=== PATIENT | male | born 1940 | race Caucasian/White ===

== ENCOUNTER 2017-06-22 15:42 | Inpatient (IN) | payer OTHER ==
[~2017-06-22] VITALS: Ht 170.2 cm; Wt 77.2 kg
[2017-06-22 15:43] VITALS: BP 194/113; PULSE 143; RESP 20; TEMP 98.6; O2SAT 95
[2017-06-22] MEDS ORDERED: DILTIAZEM HCL 25 MG/5 ML VIAL ONE (15:48)
[2017-06-22] MEDS ORDERED: SODIUM CHLOR 0.9% 1000 ML INJ 1,000 ML IV ONE (15:54)
[2017-06-22 16:04] VITALS: O2SAT 99
[2017-06-22] MEDS ORDERED: DILTIAZEM HCL 25 MG/5 ML VIAL IV ONE (16:15)
[2017-06-22] MEDS ORDERED: SODIUM CHLOR 0.9% 1000 ML INJ 1,000 ML IV SCH (16:19)
--- NOTE | 2017-06-22 16:27 | RADRPT ---
EXAM DATE/TIME: 06/22/2017 15:56 [facility] COMPARISON: No previous studies available for comparison. INDICATIONS : Stroke Alert- Altered mental status and poor verbal. RADIATION DOSE: 32.30 CTDIvol (mGy) This report was called by Dr. Latham to Dr. Madsen at 4: 21 PM. MEDICAL HISTORY : Non-responsive. SURGICAL HISTORY : Non-responsive. ENCOUNTER: Initial ACUITY: 1 day PAIN SCALE: Non-responsive LOCATION: Bilateral cranial TECHNIQUE: Multiple contiguous axial images were obtained of the head. Using automated exposure control and adj ustment of the mA and/or kV according to patient size, radiation dose was kept as low as reasonably a chievable to obtain optimal diagnostic quality images. DICOM format image data is available electro nically for review and comparison. FINDINGS: CEREBRUM: There is mild cerebral atrophy. Ventricles are normal in size. There is moderate to severe periventri cular white matter low-attenuation. No evidence of midline shift, mass lesion, hemorrhage or acute i nfarction. No extra-axial fluid collections are seen. Small amount of air is present within the cave rnous sinus. POSTERIOR FOSSA: The cerebellum and brainstem demonstrate no acute finding. There is mildly enlarged an ectatic basila r artery. The 4th ventricle is midline. The cerebellopontine angle is unremarkable. EXTRACRANIAL: Visualized sinuses are clear. Prior left scleral banding. SKULL: The calvaria is intact. No evidence of skull fracture. CONCLUSION: 1. No acute intracranial abnormality is identified. There is a small amount of air in the cavernous s inus, presumably from recent IV access. 2. There is generalized cerebral atrophy with [id number] periventricular white matter low att enuation characteristic of chronic microvascular ischemia. 3. Mild enlarged and tortuous basilar artery. Chevy Latham MD on June 22, 2017 at 16:18 Board Certified Radiologist. This report was verified electronically.
[2017-06-22 16:35] VITALS: BP 144/63; PULSE 80; RESP 20
[2017-06-22 16:48] LABS: AUTOMATED NEUTROPHIL # 4.2 TH/MM3 (1.8-7.7); BASOPHIL % 0.3 % (0.0-2.0); EOSINOPHIL # 0.1 TH/MM3 (0-0.4); EOSINOPHIL % 1.3 % (0.0-4.0); HEMATOCRIT 31.4 % (39.0-51.0); HEMO FLAGS DIFF FINAL; LYMPH % 15.2 % (9.0-44.0); LYMPHOCYTE # 0.8 TH/MM3 (1.0-4.8); MEAN CELL VOLUME 83.1 FL (80.0-100.0); MEAN CORPUSCULAR HEMOGLOBIN 27.2 PG (27.0-34.0); MEAN CORPUSCULAR HGB CONC 32.8 % (32.0-36.0); MONO % 7.1 % (0.0-8.0); NEUT % 76.1 % (16.0-70.0); PLATELET COUNT 109 TH/MM3 (150-450); RED BLOOD COUNT 3.78 MIL/MM3 (4.50-5.90); RED CELL DISTRIBUTION WIDTH 15.1 % (11.6-17.2); WHITE BLOOD COUNT 5.5 TH/MM3 (4.0-11.0)
[2017-06-22 16:52] LABS: I-STAT POTASSIUM 3.3 MMOL/L (3.5-4.9)
[2017-06-22 17:02] LABS: APTT (PATIENT) 26.6 SEC (24.3-30.1); INTERNATIONAL NORMALIZED RATIO 0.9 RATIO; PROTHROMBIN TIME - PATIENT 10.3 SEC (9.8-11.6)
[2017-06-22 17:09] LABS: BICARBONATE 22.5 MEQ/L (21.0-32.0); POTASSIUM 3.3 MEQ/L (3.5-5.1)
[2017-06-22 17:36] LABS: FREE T4 0.94 NG/DL (0.76-1.46); HDL CHOLESTEROL 28.3 MG/DL (40.0-60.0)
[2017-06-22] MEDS ORDERED: IOHEXOL 350 MG/ML 10 ML VIAL (for RAD DIAG) IV ONE (17:42)
--- NOTE | 2017-06-22 17:42 | PD ---
HPI Chief Complaint: Neuro Symptoms/ Deficits Time Seen by Provider: 15:56 Travel History International Travel<30 days: No Contact w/Intl Traveler<30days: No Traveled to known affect area: No History of Present Illness HPI Patient is a gentleman in his 70s brought in by EMS as a stroke alert. He was found in the parking lot of [facility] altered and confused. He was unable to talk to EMS, and it appeared that he had unequal pupils. There are also concerned his blood pressure was elevated, so a stroke alert was issued. On arrival, patient is unable to provide any history. Urgently, he was unable to say his name, he did not know where he was, and seemed to be having trouble finding words. [facility] Social History Alcohol Use: No Tobacco Use: No Substance Use: No Allergies-Medications (Allergen,Severity, Reaction): Coded Allergies: UNOBTAINABLE (Unverified , 06/22/17) Reported Meds & Prescriptions Reported Meds & Active Scripts Active Active Prescriptions or Reported Medications Unobtainable Review of Systems ROS Limitations: Altered Mental Status Physical Exam Narrative GENERAL: Awake and alert, but very confused. SKIN: Focused skin assessment warm/dry. HEAD: Atraumatic. Normocephalic. EYES: Pupils equal and round. No scleral icterus. Extraocular movements intact. ENT: Mucous membranes pink and moist. NECK: Trachea midline. No JVD. CARDIOVASCULAR: Irregular and tachycardic. No murmur appreciated. RESPIRATORY: No accessory muscle use. Clear to auscultation. Breath sounds equal bilaterally. GASTROINTESTINAL: Abdomen soft, non-tender, nondistended. MUSCULOSKELETAL: No obvious deformities. No clubbing. No cyanosis. No edema. Bilateral lower extremity amputee. NEUROLOGICAL: Awake and alert, but unable to answer questions. No obvious cranial nerve deficits. Motor grossly within normal limits. PSYCHIATRIC: Appropriate mood and affect; insight and judgment normal. Data Data Last Documented VS Vital Signs Date Time Temp Pulse Resp B/P Pulse Ox O2 Delivery O2 Flow Rate FiO2 06/22/17 16:35 80 20 144/63 06/22/17 16:04 Nasal Cannula 2 06/22/17 16:04 99 06/22/17 15:43 98.6 Orders Diltiazem Inj (Cardizem Inj) (06/22/17 15:48) Diet Npo (06/22/17 Dinner) Activity Bed Rest (06/22/17 ) Electrocardiogram (06/22/17 ) I-Stat Creatinine (06/22/17 15:54) I-Stat Profile (06/22/17 15:54) Prothrombin Time / Inr (Pt) (06/22/17 15:54) Act Partial Throm Time (Ptt) (06/22/17 15:54) Complete Blood Count With Diff (06/22/17 15:54) Fibrinogen (06/22/17 15:54) Creatine Kinase (Cpk) (06/22/17 15:54) Troponin I (06/22/17 15:54) Ua Includes Microscopic (06/22/17 15:54) Drug Screen, Random Urine (06/22/17 15:54) Type And Screen (06/22/17 15:54) Ct Brain W/O Iv Contrast(Rout) (06/22/17 ) Consult Neurology (06/22/17 ) Blood Glucose (06/22/17 15:54) Ecg Monitoring (06/22/17 15:54) Neuro Checks Q2HX12,Q4H (06/22/17 15:54) Nursing Bedside Swallow Assess .ONCE (06/22/17 15:54) Iv Access Insert/Monitor (06/22/17 15:54) NPO (06/22/17 15:54) Oximetry (06/22/17 15:54) Oxygen Administration (06/22/17 15:54) Sodium Chlor 0.9% 1000 Ml Inj (Ns 1000 M (06/22/17 15:54) Resp Oxygen Ray C Titrat 1-4 L (06/22/17 15:54) Cath For Specimen (06/22/17 15:54) Diltiazem Inj (Cardizem Inj) (06/22/17 16:15) (Hub Use Only)Inp Phy Cons/Ref (06/22/17 ) Westergren Sedimentation Rate (06/22/17 16:19) Rapid Plasma Regin (Rpr) W Ttr (06/22/17 16:19) Nerissa Screen (06/22/17 16:19) Thyroid Stimulating Hormone (06/22/17 16:19) Free Thyroxine (T4) (06/22/17 16:19) Vitamin B1 (Thiamine) (06/22/17 16:19) Vitamin B12 (06/22/17 16:19) Urinalysis - C+S If Indicated (06/22/17 16:19) Methylmalonic Acid (Mma) (06/22/17 16:19) Basic Metabolic Panel (Bmp) (06/22/17 16:19) Ast (Sgot) (06/22/17 16:19) Alt (Sgpt) (06/22/17 16:19) Mri Brain W&W/O Contrast (06/22/17 16:19) Echo 2d Comp With Doppler (06/22/17 16:19) 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 / Telemetry TA.Q8H (06/22/17 16:19) [place] (06/22/17 16:19) Sodium Chlor 0.9% 1000 Ml Inj (Ns 1000 M (06/22/17 16:19) Lipid Profile (06/22/17 16:19) Drug Screen, Random Urine (06/22/17 16:19) Cta Brain W Iv Contrast W 3d (06/22/17 16:19) Cta Neck W Iv Contrast W 3d (06/22/17 16:19) Folate, Serum (06/22/17 16:19) Scd&Teds Bilateral/Knee High TA.QSHIFT (06/22/17 16:19) Admit Order (Ed Use Only) (06/22/17 ) Labs Laboratory Tests Test 06/22/17 06/22/17 15:45 17:00 White Blood Count 5.5 TH/MM3 Red Blood Count 3.78 MIL/MM3 Hemoglobin 10.3 GM/DL Bedside Hemoglobin 15.6 G/DL Hematocrit 31.4 % Bedside Hematocrit 46.0 % Mean Corpuscular Volume 83.1 FL Mean Corpuscular Hemoglobin 27.2 PG Mean Corpuscular Hemoglobin 32.8 % Concent Red Cell Distribution Width 15.1 % Platelet Count 109 TH/MM3 Mean Platelet Volume 10.5 FL Neutrophils (%) (Auto) 76.1 % Lymphocytes (%) (Auto) 15.2 % Monocytes (%) (Auto) 7.1 % Eosinophils (%) (Auto) 1.3 % Basophils (%) (Auto) 0.3 % Neutrophils # (Auto) 4.2 TH/MM3 Lymphocytes # (Auto) 0.8 TH/MM3 Monocytes # (Auto) 0.4 TH/MM3 Eosinophils # (Auto) 0.1 TH/MM3 Basophils # (Auto) 0.0 TH/MM3 CBC Comment DIFF FINAL Differential Comment Erythrocyte Sedimentation Rate 5 mm/hr Prothrombin Time 10.3 SEC Prothromb Time International 0.9 RATIO Ratio Activated Partial 26.6 SEC Thromboplast Time Fibrinogen 392 mg/dL Bedside Sodium 145 MMOL/L Sodium Level 143 MEQ/L Bedside Potassium 3.3 MMOL/L Potassium Level 3.3 MEQ/L Bedside Chloride 107 MMOL/L Chloride Level 110 MEQ/L Carbon Dioxide Level 22.5 MEQ/L Anion Gap 11 MEQ/L Bedside Blood Urea Nitrogen 23 MG/DL Blood Urea Nitrogen 22 MG/DL Creatinine 1.50 MG/DL Bedside Creatinine 1.2 MG/DL Estimat Glomerular Filtration 40 ML/MIN Rate Bedside Glucose 200 MG/DL Random Glucose 200 MG/DL Calcium Level 9.1 MG/DL Aspartate Amino Transf 19 U/L (AST/SGOT) Alanine Aminotransferase 24 U/L (ALT/SGPT) Total Creatine Kinase 108 U/L Troponin I 0.02 NG/ML Triglycerides Level 236 MG/DL Cholesterol Level 146 MG/DL LDL Cholesterol 71 MG/DL HDL Cholesterol 28.3 MG/DL Cholesterol/HDL Ratio 5.15 RATIO Vitamin B12 Level 593 PG/ML Folate 16.7 NG/ML Free Thyroxine 0.94 NG/DL Thyroid Stimulating Hormone 1.830 uIU/ML 3rd Gen Blood Type O NEGATIVE Antibody Screen NEGATIVE MDM Medical Decision Making Medical Screen Exam Complete: Yes Emergency Medical Condition: Yes Interpretation(s) ECG shows atrial fibrillation with rapid ventricular rate. Differential Diagnosis Stroke versus TIA versus electrolyte abnormality versus dehydration Narrative Course Patient is a male in his 70s brought in as a stroke alert. Patient is very confused and unable to answer questions on arrival. IV was established, labs are sent. Patient was given Cardizem to control his heart rate. He was taken to CT, and CT of his head showed no acute bleed. Dr. Dia was consulted for neurology. He is at bedside, and has ordered further testing to rule out stroke. When patient returned from CT, he became more oriented, he is able to answer questions, including his name. She is still slightly confused but overall greatly improving. TPA was held due to the rapid improvement of his symptoms. Labs show no acute abnormalities. He'll be admitted for further management. Diagnosis Primary Impression: Stroke Qualified Code: I63.9 - Cerebrovascular accident (CVA), unspecified mechanism Admitting Information Admitting Physician Requests: Admit Scripts Unable to Obtain Active Prescriptions or Reported Meds Condition: Fani Blanca MD Jun 22, 2017 17:42
--- NOTE | 2017-06-22 17:54 | MB ---
cc: JOHN MANNING DATE OF CONSULTATION: 06/22/2017. ALSO KNOWN : Chace Kuo. HISTORY OF PRESENT ILLNESS: The patient came in as a possible stroke alert today with change in mental status. From the chart, the patient is a 76-year-old man with a history of: 1. GI bleed. 2. Hypercholesterolemia. 3. Hypertension. 4. Depression. MEDICATIONS IN THE PAST: In the past, he has been on: 1. Simvastatin. 2. Diazepam. 3. Colace. 4. Endocet. 5. Duragesic patch every three days. He was found in the [facility] parking lot wandering around. He had difficulty talking or seemed confused when he first came in and he was in rapid atrial fibrillation and has cleared quite a bit since that time. No definite weakness. He actually drove himself to [facility] evidently. REVIEW OF SYSTEMS: He denies any history of hypertension, diabetes, hypercholesterolemia, myocardial infarction, CABG, cardiac arrhythmia, atrial fibrillation, coumadin, renal, hepatic, or pulmonary disease, thyroid disease, lupus, ulcer, cancer, seizure or stroke. MEDICATIONS HE TAKES: He says he takes none including no aspirin. SOCIAL HISTORY: Not a smoker or a drinker. Lives by himself. He was fixing his roof today. FAMILY HISTORY: Negative for cancer, seizure or stroke. LABS IN THE PAST: CBC in 2014 was normal. Urinalysis has been positive for a urinary tract infection in the past. Basic metabolic profile in the past has been normal back in 2014 as was a B12 in 2011. Liver function tests were normal in the past. PHYSICAL EXAMINATION: VITAL SIGNS: Afebrile, 143, 195/113, 20, 02 sat 95%. NECK: There are no carotid bruits. HEART: Regular rhythm. I do not detect a murmur. NEUROLOGICAL EXAMINATION: He is a little unkempt. His pupils are equal. Visual jason are full. Extraocular movements intact without nystagmus. He had normal strength in upper and lower extremities bilaterally. He appears to have bilateral lower extremity amputation but he can pick his legs up well. DTRs are trace. He is awake and alert. He could name well. He gives a fair history. He remembers going to [facility]. He could not tell me the year or the month however. LABORATORY DATA: Pending. IMAGING STUDIES: CT of the brain: Diffuse atrophy, some white matter changes, otherwise negative. IMPRESSION: Possibly a TIA from the atrial fibrillation. RECOMMENDATIONS / PLAN: 1. Will do an MRI of the brain. 2. CTA of the neck and [place]. 3. If the CTA is negative, we are going to start him on Eliquis. His CT of the brain so far has been negative. 4. NIH stroke scale is a 0 at this time. 5. I would not give him tPA due to the resolution of symptoms. MD MARK Rashid/YUNIEL /4:15 PM /5:34 PM
--- NOTE | 2017-06-22 18:36 | HHI.HP ---
HPI Service [facility] Primary Care Physician Unknown Admission Diagnosis CVA Diagnoses: Chief Complaint: Stroke Travel History International Travel<30 Days: No Contact w/Intl Traveler <30 Da: No Traveled to Known Affected Are: No History of Present Illness Written by Fani Juarez, acting as scribe for Dr. Lozada on 06/22/17 at 18: 30. Mr. Chace Kuo (in computer as [id number],Chevy [id number]) was brought into the ED via [facility] for confusion and altered mental status. Patient is a relatively poor historian. He states he was working on his roof this afternoon and noticed intermittent dizziness. He stated it was relatively hot outside, became weak while trying to repair his roof and he decided to go to [facility] to get some water and cool off. He was brought into ED after being seen at [facility] with noticeable confusion and altered mental status, wondering around in the parking lot. Patient denies any recent illness including fever, chills, cough, shortness of breath, abdominal pain, nausea, vomiting, diarrhea, or dysuria. He states he has no medical problems and does not take any home medications. Patient was also in atrial fibrillation with RVR on presentation and given Cardizem IV in ED. Currently in a controlled irregular irregularly rhythm. Review of Systems Constitutional: COMPLAINS OF: Dizziness Cardiovascular: DENIES: Chest pain Neurologic: COMPLAINS OF: Headache Except as stated in HPI: all other systems reviewed are Neg Past Family Social History Past Medical History Hypertension Hyperlipidemia Depression History of GI bleed Right lower BKA Past Surgical History Appendectomy Reported Medications Patient denies taking any home medications. Allergies: Coded Allergies: UNOBTAINABLE (Unverified , 06/22/17) Active Ordered Medications Current Medications Medications (Trade) Dose Ordered Sig/Galina Route Start Time Stop Time Status Last Admin Sodium Chloride 1,000 ml @ 70 mls/hr [id number] ONCE IV 06/22/17 15:54 06/23/17 06:11 06/22/17 15:59 (NS 1000 ml Inj) 1,000 ml @ 75 mls/hr [id number] IV 06/22/17 16:19 06/22/17 16:38 Family History No known significant family medical history. Denies any cardiovascular disease or cancer in family. Social History Denies any current or past tobacco use. Denies any alcohol use. Denies any illicit drug use. Physical Exam Vital Signs Vital Signs Date Time Temp Pulse Resp B/P Pulse Ox O2 Delivery O2 Flow Rate FiO2 06/22/17 16:35 80 20 144/63 06/22/17 16:04 Nasal Cannula 2 06/22/17 16:04 99 06/22/17 15:43 98.6 143 20 194/113 95 Physical Exam GENERAL: Well-nourished, disheveled, in no apparent distress. SKIN: No rashes, ecchymoses or lesions. Warm nd dry. HEENT: Atraumatic. Normocephalic. Right pupil 4mm, Left pupil 3 mm. Extraocular motions intact. No scleral icterus. No injection or drainage. Nose without bleeding, purulent drainage or septal hematoma. Airway patent. NECK: Trachea midline. No JVD. Supple. CARDIOVASCULAR: Irregularly irregular. No murmur appreciated. RESPIRATORY: Clear to auscultation. Breath sounds equal bilaterally. No wheezes , rales, or rhonchi. GASTROINTESTINAL: Abdomen soft, non-tender, nondistended. No guarding. MUSCULOSKELETAL: Right BKA. Left lower extremity without clubbing, cyanosis, or edema. No joint tenderness, effusion, or edema noted. No calf tenderness. NEUROLOGICAL: Awake and alert. Cranial nerves II through XII intact. Motor and sensory grossly within normal limits. Five out of 5 muscle strength in all muscle groups. Some expressive aphasia noted. Laboratory Laboratory Tests Test 06/22/17 15:45 White Blood Count 5.5 Red Blood Count 3.78 Hemoglobin 10.3 Bedside Hemoglobin 15.6 Hematocrit 31.4 Bedside Hematocrit 46.0 Mean Corpuscular Volume 83.1 Mean Corpuscular Hemoglobin 27.2 Mean Corpuscular Hemoglobin 32.8 Concent Red Cell Distribution Width 15.1 Platelet Count 109 Mean Platelet Volume 10.5 Neutrophils (%) (Auto) 76.1 Lymphocytes (%) (Auto) 15.2 Monocytes (%) (Auto) 7.1 Eosinophils (%) (Auto) 1.3 Basophils (%) (Auto) 0.3 Neutrophils # (Auto) 4.2 Lymphocytes # (Auto) 0.8 Monocytes # (Auto) 0.4 Eosinophils # (Auto) 0.1 Basophils # (Auto) 0.0 CBC Comment DIFF FINAL Differential Comment Erythrocyte Sedimentation Rate 5 Prothrombin Time 10.3 Prothromb Time International 0.9 Ratio Activated Partial 26.6 Thromboplast Time Fibrinogen 392 Bedside Sodium 145 Sodium Level 143 Bedside Potassium 3.3 Potassium Level 3.3 Bedside Chloride 107 Chloride Level 110 Carbon Dioxide Level 22.5 Anion Gap 11 Bedside Blood Urea Nitrogen 23 Blood Urea Nitrogen 22 Creatinine 1.50 Bedside Creatinine 1.2 Estimat Glomerular Filtration 40 Rate Bedside Glucose 200 Random Glucose 200 Calcium Level 9.1 Aspartate Amino Transf 19 (AST/SGOT) Alanine Aminotransferase 24 (ALT/SGPT) Total Creatine Kinase 108 Troponin I 0.02 Triglycerides Level 236 Cholesterol Level 146 LDL Cholesterol 71 HDL Cholesterol 28.3 Cholesterol/HDL Ratio 5.15 Vitamin B12 Level 593 Folate 16.7 Free Thyroxine 0.94 Thyroid Stimulating Hormone 1.830 3rd Gen Result Diagram: 06/22/17 1545 06/22/17 1545 Imaging Last Impressions Head CT 06/22/17 0000 Signed Impressions: Service Date/Time: June 15:56 - CONCLUSION: 1. No acute intracranial abnormality is identified. There is a small amount of air in the cavernous sinus, presumably from recent IV access. 2. There is generalized cerebral atrophy with [id number] periventricular white matter low attenuation characteristic of chronic microvascular ischemia. 3. Mild enlarged and tortuous basilar artery. Chevy Latham MD Assessment and Plan Assessment and Plan Mr. Chace Kuo (in computer as [id number],Chevy [id number]) was brought into the ED via [facility] for confusion and altered mental status. Patient is a relatively poor historian. He states he was working on his roof this afternoon and noticed intermittent dizziness. He stated it was relatively hot outside, became weak while trying to repair his roof and he decided to go to [facility] to get some water and cool off. He was brought into ED after being seen at [facility] with noticeable confusion and altered mental status, wondering around in the parking lot. Cerebral vascular accident, acute - Head CT done and reviewed showing no acute intracranial abnormality is identified; there is a small amount of air in the cavernous sinus, presumably from recent IV access; there is generalized cerebral atrophy with moderate-to- severe periventricular white matter low attenuation characteristic of chronic microvascular ischemia. Mild enlarged and tortuous basilar artery. - Neurology consulted and has seen patient, note reviewed. Has ordered MRI brain and CTA of the neck and is pending. Follow. Not recommending TPA due to resolution of symptoms. - RN to monitor NIH stroke scale. - 2-D ECHO ordered and pending. Will follow. - Start on Aspirin 325 mg PO daily. - Supplemental O2 to keep sats >92%. - Keep NPO for now. Monitor for aspiration. Consult placed to speech therapy , appreciate recommendations. Atrial fibrillation, acute: Found to be in a fib RVR on presentation. Now in irregularly irregular rhythm. Was given Cardizem IV. Neurology recommending starting patient on Eliquis if CTA is negative. Will follow. Continue cardiac telemetry. Acute kidney injury suspect secondary to dehydration: Creatinine 1.5 on presentation. Will hydrate with NS 20 K at 75 ml/hr. Will redraw in am. Follow. Normochromic, normocytic anemia unknown etiology: History of GI bleed. No evidence of bleeding at this time. Denies any recent hematochezia or evidence of bleeding. Will recheck in am. Follow. Hyperkalemia: K 3.3. Will replace via maintenance IVF. Hyperglycemia: Glucose 200 on presentation. Unaware of any history of diabetes. Will obtain hemoglobin a1c, follow. Placed on ACCU checks and sliding scale insulin for now, cover as needed. Hypertension, chronic: Elevated on presentation. Decreased with Cardizem. Allow permissive hypertension. Hyperlipidemia: Continue Atorvastatin 10 mg PO HS. DVT prophylaxis: SCDs. Eliquis per neurology. This note was transcribed by susannah Juarez. I, Dr. Lalo Lozada personally performed the history, physical exam, and medical decision making; and confirmed the accuracy of the information in the transcribed note. Authenticated by Dr. Lalo Lozada on 06/22/17 at 19:08. Physician Certification 2 Midnight Certification Type: Admission for Inpatient Services Order for Inpatient Services The services are ordered in accordance with Medicare regulations or non- Medicare payer requirements, as applicable. In the case of services not specified as inpatient-only, they are appropriately provided as inpatient services in accordance with the 2-midnight benchmark. Estimated LOS (days): 3 days is the estimated time the patient will need to remain in the hospital, assuming treatment plan goals are met and no additional complications. Post-Hospital Plan: Not yet determined Fani Juarez Jun 22, 2017 18:36 Lalo Lozada MD Jun 22, 2017 19:08
[2017-06-22] MEDS ORDERED: HEPARIN SODIUM - SQ 10,000 UNITS/ML VIAL SQ SCH (18:45)
[2017-06-22] MEDS: NS + KCL 20 MEQ INJ 1,000 ML IV SCH (18:45)
--- NOTE | 2017-06-22 19:10 | RADRPT ---
EXAM DATE/TIME: 06/22/2017 17:42 [facility] COMPARISON: CT BRAIN W/O CONTRAST, June 22, 2017, 15:56. INDICATIONS : Patient confused. IV CONTRAST: 100 cc Omnipaque 350 (iohexol) IV ; Cumulative dose for multiple exams. RADIATION DOSE: 27.09 CTDIvol (mGy) ; Combined studies MEDICAL HISTORY : Non-responsive. SURGICAL HISTORY : Non-responsive. ENCOUNTER: Initial ACUITY: 1 day PAIN SCALE: Non-responsive LOCATION: Bilateral cranial Elevated flow velocities and ICA/CCA ratios have been found to correlate with increased degrees of vessel stenosis, calculated as percentage of diameter relative to a normal segment of distal ICA/CCA. TECHNIQUE: Volumetric scanning was performed using a multirow detector CT scanner. The data was post processed with a variety of visualization algorithms including full-volume maximum intensity projection, multip lanar sliding thin-slab reformation, curved-planar reformation, and surface-rendering techniques. Us ing automated exposure control and adjustment of the mA and/or kV according to patient size, radiatio n dose was kept as low as reasonably achievable to obtain optimal diagnostic quality images. DICOM f ormat image data is available electronically for review and comparison. FINDINGS: AORTIC ARCH: Bovine configuration to the aerated arch. No ostial stenosis. RIGHT CAROTID: The common carotid artery is intact. The carotid bulb has a normal configuration without ulceration o r narrowing. The internal carotid artery lumen is smooth without stenosis. Focal calcification in th e wall of the proximal right internal carotid artery without significant luminal narrowing. The exte rnal carotid artery is intact. LEFT CAROTID: The common carotid artery is intact. The carotid bulb has a normal configuration without ulceration or narrowing. The internal carotid artery lumen is smooth without stenosis. There is 1.5 cm long ca lcification in the proximal internal carotid artery wall but does not cause significant luminal narro wing. The external carotid artery is intact. VERTEBRALS: The vertebral arteries have a symmetric diameter. No stenotic lesions are seen. CONCLUSION: Mild wall calcification in the proximal internal carotid arteries bilateral without significant steno sis. Hunter Adan MD on June 22, 2017 at 19:04 Board Certified Radiologist. This report was verified electronically.
--- NOTE | 2017-06-22 19:12 | RADRPT ---
EXAM DATE/TIME: 06/22/2017 17:42 [facility] COMPARISON: No previous studies available for comparison. INDICATIONS : Patient confused. IV CONTRAST: 100 cc Omnipaque 350 (iohexol) IV ; Cumulative dose for multiple exams. RADIATION DOSE: 27.09 CTDIvol (mGy) MEDICAL HISTORY : Non-responsive. SURGICAL HISTORY : Non-responsive. ENCOUNTER: Initial ACUITY: 1 day PAIN SCALE: 3/10 LOCATION: Bilateral cranial TECHNIQUE: Volumetric scanning was performed using a multi-row detector CT scanner. The data was post processed with a variety of visualization algorithms including full volume maximum intensity projection, multi -planar sliding thin slab reformation, curved planar reformation, and surface rendering techniques. Using automated exposure control and adjustment of the mA and/or kV according to patient size, radiat ion dose was kept as low as reasonably achievable to obtain optimal diagnostic quality images. DICO M format image data is available electronically for review and comparison. FINDINGS: There is excellent visualization of the major intracranial arteries out to the second-order branch ve ssels. There is no evidence for aneurysm, vessel truncation or stenosis, and no evidence for vascula r malformation. The anterior circulation has a normal configuration and flow is seen in the anterior communicating artery. The basilar artery is tortuous and ectatic, extending from the superior than usual. No aneurysm seen. CONCLUSION: 1. Tortuous and ectatic basilar artery. 2. No evidence of vessel truncation or aneurysm. Hunter Adan MD on June 22, 2017 at 19:08 Board Certified Radiologist. This report was verified electronically.
[2017-06-22 20:00] VITALS: PULSE 118; RESP 18; TEMP 98; O2SAT 97
[2017-06-22] MEDS ORDERED: GADOBENATE DIM PF 529 MG/ML 5 ML VIAL (for RAD MRI) IV ONE (20:08)
--- NOTE | 2017-06-22 20:30 | RADRPT ---
EXAM DATE/TIME: 06/22/2017 19:53 [facility] COMPARISON: CT BRAIN W/O CONTRAST, June 22, 2017, 15:56. INDICATIONS : CVA. Confusion. CONTRAST: 15 cc Multihance (gadobenate) IV MEDICAL HISTORY : Hypertension. SURGICAL HISTORY : Right BKA. ENCOUNTER: Initial ACUITY: 1 day PAIN SCORE: 0/10 LOCATION: Head. TECHNIQUE: Multiplanar, multisequence MRI of the brain was performed both prior to and following the administrat ion of paramagnetic contrast. FINDINGS: CEREBRUM: The ventricles, sulci, and basal cisterns are prominent characteristic of severe central cortical atr ophy. No evidence of midline shift, mass lesion, hemorrhage or acute infarction. No extraaxial flui d collections are seen. The pituitary gland and suprasellar cistern are normal in configuration. WHITE MATTER: Confluent areas of T2 prolongation about the periventricular and supratentorial white matter characte ristic of ischemic demyelination. POSTERIOR FOSSA: The cerebellum and brainstem are intact. The 4th ventricle is midline. The cerebellopontine angle is unremarkable. The cerebellar tonsils are normal in position. Tortuous basilar artery. DIFFUSION IMAGING: No focal areas of restricted diffusion are seen. No evidence of acute infarction. EXTRACRANIAL: The visualized portions of the orbits and paranasal sinuses are unremarkable. POST-CONTRAST: No abnormal areas of parenchymal or dural enhancement. No evidence of blood-brain barrier breakdown. CONCLUSION: 1. Severe central and cortical atrophy. 2. No evidence of acute infarction or hemorrhage. Hunter Adan MD on June 22, 2017 at 20:25 Board Certified Radiologist. This report was verified electronically.
[2017-06-22 21:00] VITALS: PULSE 95
[2017-06-22] MEDS: INSULIN ASPART SUPPLEMENTAL SCALE SQ SCH (21:00)
[2017-06-22] MEDS: ATORVASTATIN 10 MG TAB PO SCH (21:24)
[2017-06-22] MEDS: APIXABAN 5 MG TABLET PO SCH (21:25)
[2017-06-22 21:34] VITALS: PULSE 107
[2017-06-23] VITALS (8 sets, daily range): BP systolic 129–194; BP diastolic 74–124; PULSE 85–95; RESP 17–18; TEMP 97.1–98.5; O2SAT 95–98
[2017-06-23] MEDS ORDERED: LORazepam 2 MG/ML VIAL IV PUSH ONE
[2017-06-23 02:30] LABS: AUTOMATED NEUTROPHIL # 5.9 TH/MM3 (1.8-7.7); BASOPHIL % 0.5 % (0.0-2.0); EOSINOPHIL # 0.1 TH/MM3 (0-0.4); EOSINOPHIL % 1.8 % (0.0-4.0); HEMATOCRIT 41.3 % (39.0-51.0); HEMO FLAGS DIFF FINAL; LYMPHOCYTE # 0.7 TH/MM3 (1.0-4.8); MEAN CELL VOLUME 80.7 FL (80.0-100.0); MEAN CORPUSCULAR HEMOGLOBIN 27.9 PG (27.0-34.0); MEAN CORPUSCULAR HGB CONC 34.7 % (32.0-36.0); MONO % 7.6 % (0.0-8.0); NEUT % 80.1 % (16.0-70.0); PLATELET COUNT 133 TH/MM3 (150-450); RED BLOOD COUNT 5.12 MIL/MM3 (4.50-5.90); RED CELL DISTRIBUTION WIDTH 14.9 % (11.6-17.2); WHITE BLOOD COUNT 7.3 TH/MM3 (4.0-11.0)
[2017-06-23 02:50] LABS: CREATINE KINASE 103 U/L (39-308); HDL CHOLESTEROL 34.2 MG/DL (40.0-60.0)
[2017-06-23 02:59] LABS: ANION GAP 11 MEQ/L (5-15); BICARBONATE 25.2 MEQ/L (21.0-32.0); BLOOD UREA NITROGEN 14 MG/DL (7-18); CHLORIDE 109 MEQ/L (98-107); GLOMERULAR FILTRATION RATE 66 ML/MIN (>89); LDL CHOLESTEROL 87 MG/DL (0-99); POTASSIUM 3.6 MEQ/L (3.5-5.1); SODIUM (NA) 145 MEQ/L (136-145)
[2017-06-23 04:29] LABS: AMPHETAMINE, URINE NEG (NEG); BARBITURATES, URINE NEG (NEG); COCAINE, URINE NEG (NEG)
[2017-06-23 04:38] LABS: BLOOD, URINE TRACE (NEG); GLUCOSE,URINE NEG (NEG); KETONE, URINE NEG (NEG); NITRITE,URINE NEG (NEG); URINE COLOR LIGHT-YELLOW (YELLW/STRAW)
[2017-06-23 04:39] LABS: COMMENT (UR) CULTURE INDICATED; CULTURE IF INDICATED CULTURE INDICATED
[2017-06-23] MEDS: INSULIN ASPART SUPPLEMENTAL SCALE SQ SCH ×3 (06:36→16:00)
[2017-06-23] MEDS: NS + KCL 20 MEQ INJ 1,000 ML IV SCH (07:26)
--- NOTE | 2017-06-23 08:20 | HHI.PR ---
Subjective Remarks sr Objective Vital Signs Date Time Temp Pulse Resp B/P Pulse Ox O2 Delivery O2 Flow Rate FiO2 06/23/17 08:00 98.3 85 17 129/92 95 06/23/17 04:00 97.1 94 18 194/122 98 06/23/17 00:00 98.5 87 18 187/124 96 06/22/17 21:34 107 06/22/17 20:00 98.0 118 18 97 06/22/17 16:35 80 20 144/63 06/22/17 16:04 Nasal Cannula 2 06/22/17 16:04 99 06/22/17 15:43 98.6 143 20 194/113 95 I/O 06/22/17 06/22/17 06/22/17 06/23/17 06/23/17 06/23/17 07:00 15:00 23:00 07:00 15:00 23:00 Output Total 620 ml 975 ml Balance -620 ml -975 ml Output Urine Total 620 ml 975 ml Result Diagram: 06/23/17 0205 06/23/17 0205 Objective Remarks awake alert knows hospital not yr Assessment and Plan Assessment and Plan imp i started eliquis on basis of possible tia aphasia yest and afib on presentation to er his mri neg cva and ctax2 neg may have uti ? defer to med team ldl ok trop neg one issue is his hx gib this will have to be watch by pcp o/p ion eliquis and maybe zantac taken? do eeg ow could dc later today and fu office i wonder if he could have some dementia? Michael Dia MD Jun 23, 2017 08:20
[2017-06-23] MEDS: APIXABAN 5 MG TABLET PO SCH (08:23)
[2017-06-23] MEDS ORDERED: ASPIRIN 325 MG TAB PO SCH (09:00)
--- NOTE | 2017-06-23 09:33 | EKG ---
Date Performed: 06/22/2017 Time Performed: 15:49:00 PTAGE: 89 years EKG: ATRIAL FIBRILLATION WITH RAPID VENTRICULAR RESPONSE MODERATE VOLTAGE CRITERIA FOR LVH, CONS IDER NORMAL VARIANT ST DEVIATION AND MODERATE T-WAVE ABNORMALITY, CONSIDER LATERAL ISCHEMIA ST DEVIAT ION AND MODERATE T-WAVE ABNORMALITY, CONSIDER INFERIOR ISCHEMIA ABNORMAL ECG NO PREVIOUS TRACING DOCTOR: Michael Rush Interpretating Date/Time 06/23/2017 09:31:46
[2017-06-23 09:57] LABS: RAPID PLASMA REAGIN SCREEN NON-REACTIVE (NON-REACTVE)
[2017-06-23 11:30] LABS: ANA SCREEN NEG (NEG)
--- NOTE | 2017-06-23 13:29 | MG ---
cc: EMMA JASMINE M.D. Lab No: [id number] Date: 06/23/2017 Age: 76 Sex: M Race: __ TECHNIQUE 17 channel EEG. DESCRIPTION The background rhythm reveals a symmetrical alpha rhythm with a frequency of 8-9 Hz, amplitude is about 20-30 microvolts. There is some muscle artifact present. There are no lateralizing features seen. There is no epileptiform discharges present. During drowsiness, there is slowing in the theta range. Sleep activity is obtained and there are occasional vertex sharp waves with normal sleep spindles. Photic results in a normal driving response. INTERPRETATION Normal EEG MD PIA Ames/JACQUELINE /1:01 PM /1:20 PM
[2017-06-23] MEDS: ACETAMINOPHEN 325 MG TAB PO PRN (16:56)
[2017-06-23 16:57] LABS: HEMOGLOBIN A1b 1.8 %; HEMOGLOBIN Ao 84.3 %; HEMOGLOBIN P3 3.9 %
--- NOTE | 2017-06-23 18:09 | ECHRPT ---
Indication: tia cva CONCLUSIONS The left ventricular systolic function is normal with an estimated ejection fraction in the range of 60-65%. Mild concentric left ventricular hypertrophy. Trace mitral regurgitation. Mild aortic valve regurgitation. BP: 129 / 92 HR: 85 Rhythm: MEASUREMENTS (Male / Female) Normal Values Technical Quality:Good 2D ECHO LV Diastolic Diameter PLAX 3.7 cm 4.2 - 5.9 / 3.9 - 5.3 cm LV Systolic Diameter PLAX 2.9 cm IVS Diastolic Thickness 1.8 cm 0.6 - 1.0 / 0.6 - 0.9 cm LVPW Diastolic Thickness 1.4 cm 0.6 - 1.0 / 0.6 - 0.9 cm LV Relative Wall Thickness 0.8 RV Internal Dim ED PLAX 2.5 cm M-MODE Aortic Root Diameter MM 3.6 cm LA Systolic Diameter MM 4.5 cm LA Ao Ratio MM 1.3 AV Cusp Separation MM 2.0 cm DOPPLER AI Peak Velocity 296.0 cm/s AI Peak Gradient 35.0 mmHg AI Pressure Half Time 296.0 ms FINDINGS LEFT VENTRICLE The left ventricular systolic function is normal with an estimated ejection fraction in the range of 60-65%. Mild concentric left ventricular hypertrophy. RIGHT VENTRICLE Normal right ventricular size and systolic function. LEFT ATRIUM The left atrial size is mildly dilated. RIGHT ATRIUM The right atrial size is normal. ATRIAL SEPTUM Normal atrial septal thickness without atrial level shunting by limited color doppler interrogation. AORTA The aortic root and proximal ascending aorta are normal in size on limited imaging. MITRAL VALVE Structurally normal mitral valve. No mitral valve stenosis. Trace mitral regurgitation. AORTIC VALVE Trileaflet aortic valve. No aortic valve stenosis. Mild aortic valve regurgitation. TRICUSPID VALVE Structurally normal tricuspid valve. No tricuspid valve stenosis or regurgitation. PULMONARY VALVE The pulmonary valve is not well visualized. Trivial pulmonary valve regurgitation. VESSELS The inferior vena cava is normal in size. PERICARDIUM No pericardial effusion. New Villaseñor DO (Electronically Signed) Final Date:23 June 2017 18:08
--- NOTE | 2017-06-23 18:26 | HHI.PR ---
Subjective Remarks Patient is very uncooperative, hard to decipher if this is a new behavioral issue or this is who he is. Daughter is not able to give a straight answer about this either. Patient is very agitated when asked about how he feels today , is wanting to go home. He demonstrates no slurred speech on doing so and refuses to cooperate when asked to follow commands Objective Vital Signs Date Time Temp Pulse Resp B/P Pulse Ox O2 Delivery O2 Flow Rate FiO2 06/23/17 17:10 96 06/23/17 16:00 98.4 86 17 157/80 97 06/23/17 08:05 95 06/23/17 08:00 85 06/23/17 08:00 98.3 85 17 129/92 95 06/23/17 04:00 97.1 94 18 194/122 98 06/23/17 00:00 98.5 87 18 187/124 96 06/22/17 21:34 107 06/22/17 20:00 98.0 118 18 97 I/O 06/22/17 06/22/17 06/22/17 06/23/17 06/23/17 06/23/17 07:00 15:00 23:00 07:00 15:00 23:00 Output Total 620 ml 975 ml Balance -620 ml -975 ml Output Urine Total 620 ml 975 ml # Voids 1 # Bowel Movements 1 Result Diagram: 06/23/17 1728 06/23/17 0205 Imaging Last Impressions Neck CTA 06/22/171618 Signed Impressions: Service Date/Time: June 17:42 - CONCLUSION: Mild wall calcification in the proximal internal carotid arteries bilateral without significant stenosis. Hunter Adan MD Head CTA 06/22/171618 Signed Impressions: Service Date/Time: June 17:42 - CONCLUSION: 1. Tortuous and ectatic basilar artery. 2. No evidence of vessel truncation or aneurysm. Hunter Adan MD Brain MRI 06/22/171618 Signed Impressions: Service Date/Time: June 19:53 - CONCLUSION: 1. Severe central and cortical atrophy. 2. No evidence of acute infarction or hemorrhage. Hunter Adan MD Head CT 06/22/17 0000 Signed Impressions: Service Date/Time: June 15:56 - CONCLUSION: 1. No acute intracranial abnormality is identified. There is a small amount of air in the cavernous sinus, presumably from recent IV access. 2. There is generalized cerebral atrophy with [id number] periventricular white matter low attenuation characteristic of chronic microvascular ischemia. 3. Mild enlarged and tortuous basilar artery. Chevy Latham MD Objective Remarks GENERAL: Patient lying in bed quietly, is agitated when asked about his condition EYES: No scleral icterus. No injection or drainage. CARDIOVASCULAR: Regular rate and rhythm without murmurs, gallops, or rubs. RESPIRATORY: Breath sounds equal bilaterally. No accessory muscle use. GASTROINTESTINAL: Abdomen soft, non-tender, nondistended. MUSCULOSKELETAL: Right BKA, grossly intact range of motion of all 4 extremities Neurological: No facial droop nor slurred speech noted A/P Assessment and Plan Mr. Chace Kuo (in computer as [id number],Chevy [id number]) was brought into the ED via [facility] for confusion and altered mental status. Patient is a relatively poor historian. He states he was working on his roof this afternoon and noticed intermittent dizziness. He stated it was relatively hot outside, became weak while trying to repair his roof and he decided to go to [facility] to get some water and cool off. He was brought into ED after being seen at [facility] with noticeable confusion and altered mental status, wondering around in the parking lot. Strokelike symptoms - Clinically patient has significantly improved in terms of motor function, however behavioral issues still get to be elucidated as to chronic or new onset. No evidence of stroke based on imaging including MRI, appreciate neurology recommendations. Latest EEG report shows activity suggestive of seizures. Echo report pending. - 2-D ECHO ordered and pending. Will follow. - Aspirin 325 mg PO daily. - Supplemental O2 to keep sats >92%. - Keep NPO for now. Monitor for aspiration. Consult placed to speech therapy , appreciate recommendations. Atrial fibrillation, acute: RVR component has resolved, on eliquis now per neurology to minimize Continue cardiac telemetry. Acute kidney injury suspect secondary to dehydration: Hydrate and trend labs in a.m. Normochromic, normocytic anemia unknown etiology: History of GI bleed. No evidence of bleeding at this time. Denies any recent hematochezia or evidence of bleeding. Will recheck in am. Follow. Hypokalemia: Replace accordingly Hyperglycemia: Glucose 200 on presentation. Unaware of any history of diabetes. Will obtain hemoglobin a1c, follow. Placed on ACCU checks and sliding scale insulin for now, cover as needed. Hypertension, chronic: Allow permissive hypertension; will stabilize tomorrow morning Hyperlipidemia: Continue Atorvastatin 10 mg PO HS. DVT prophylaxis: SCDs. Eliquis per neurology. Denzel Matthew MD Jun 23, 2017 18:26
[2017-06-24] VITALS: BP 190/100; PULSE 94; RESP 18; TEMP 98.5; O2SAT 96
[2017-06-24] MEDS: APIXABAN 5 MG TABLET PO SCH ×2 (00:21→09:53)
[2017-06-24] MEDS: ATORVASTATIN 10 MG TAB PO SCH (00:21)
[2017-06-24] MEDS: INSULIN ASPART SUPPLEMENTAL SCALE SQ SCH ×3 (00:24→11:00)
[2017-06-24] MEDS: NS + KCL 20 MEQ INJ 1,000 ML IV SCH (00:39)
[2017-06-24] MEDS ORDERED: ENALAPRILAT 1.25 MG/ML VIAL IV PUSH PRN (01:15)
[2017-06-24 04:00] VITALS: BP 178/112; PULSE 83; RESP 18; TEMP 97.4; O2SAT 98
[2017-06-24] MEDS ORDERED: cloNIDine HCL 0.1 MG TAB PO ONE (05:15)
[2017-06-24 08:13] VITALS: PULSE 98
[2017-06-24 08:15] VITALS: BP 185/104; PULSE 84; RESP 18; TEMP 98.7; O2SAT 95
[2017-06-24] MEDS: ACETAMINOPHEN 325 MG TAB PO PRN (10:01)
[2017-06-24] MEDS ORDERED: LISINOPRIL 10 MG TAB PO SCH (10:15)
[2017-06-24] MEDS ORDERED: CARVEDILOL 6.25 MG TAB PO SCH (12:00)
[2017-06-24] MEDS ORDERED: DEXTROSE 50% IN WATER 50 ML VIAL(D50) IV PUSH PRN (12:00)
[2017-06-24] MEDS ORDERED: GLUCAGON 1 MG/ML VIAL OTHER PRN (12:00)
[2017-06-24] MEDS ORDERED: LISINOPRIL 20 MG TAB PO SCH (12:00)
[2017-06-24 12:01] VITALS: BP 144/80; PULSE 90; RESP 18; TEMP 97.2; O2SAT 97
[2017-06-24] MEDS ORDERED: APIX5TAB PO (13:28)
[2017-06-24] MEDS ORDERED: LISI-515 PO (13:28)
[2017-06-24] MEDS ORDERED: CARV6.25 PO (13:28)
--- NOTE | 2017-06-24 13:29 | HHI.DCPOC ---
Discharge Care Plan Additional Problems Lightheadedness Goals to Promote Your Health * To prevent worsening of your condition and complications * To maintain your health at the optimal level DO NOT DRIVE, OPERATE ANY HEAVY MACHINERY, OR ATTEND OR WORK AT ANY HEIGHTS. Continue taking blood pressure medications and blood thinner medication. Directions to Meet Your Goals Take your medications as prescribed Follow your dietary instruction Follow activity as directed Keep your appointments as scheduled Take your immunizations and boosters as scheduled If your symptoms worsen call your PCP, if no PCP go to Urgent Care Center or Emergency Room Smoking is Dangerous to Your Health. Avoid second hand smoke Call the 24-hour hour crisis hotline for domestic abuse at Denzel Matthew MD Jun 24, 2017 13:29
[2017-06-24] MEDS ORDERED: CARV3.125 PO (13:36)
--- NOTE | 2017-06-24 17:15 | HHI.DS ---
Discharge Summary Admission Date Jun 22, 2017 at 18:19 Discharge Date: Jun 24, 2017 Admitting Diagnosis CVA (1) Transient loss of consciousness ICD Code: R55 Diagnosis: Principal Procedures None Brief History - From Admission Written by Fani Juarez, acting as scribe for Dr. Lozada on 06/22/17 at 18: 30. Mr. Chace Kuo (in computer as [id number],Chevy [id number]) was brought into the ED via [facility] for confusion and altered mental status. Patient is a relatively poor historian. He states he was working on his roof this afternoon and noticed intermittent dizziness. He stated it was relatively hot outside, became weak while trying to repair his roof and he decided to go to [facility] to get some water and cool off. He was brought into ED after being seen at [facility] with noticeable confusion and altered mental status, wondering around in the parking lot. Patient denies any recent illness including fever, chills, cough, shortness of breath, abdominal pain, nausea, vomiting, diarrhea, or dysuria. He states he has no medical problems and does not take any home medications. Patient was also in atrial fibrillation with RVR on presentation and given Cardizem IV in ED. Currently in a controlled irregular irregularly rhythm. CBC/BMP: 06/23/17 1728 06/23/17 0205 Significant Findings Laboratory Tests Test 06/22/17 06/23/17 06/23/17 15:45 02:05 04:00 Red Blood Count 3.78 MIL/MM3 (4.50-5.90) Hemoglobin 10.3 GM/DL (13.0-17.0) Hematocrit 31.4 % (39.0-51.0) Platelet Count 109 TH/MM3 133 TH/MM3 (150-450) (150-450) Neutrophils (%) (Auto) 76.1 % 80.1 % (16.0-70.0) (16.0-70.0) Lymphocytes # (Auto) 0.8 TH/MM3 0.7 TH/MM3 (1.0-4.8) (1.0-4.8) Fibrinogen 392 mg/dL (227-377) Bedside Potassium 3.3 MMOL/L (3.5-4.9) Potassium Level 3.3 MEQ/L (3.5-5.1) Chloride Level 110 MEQ/L 109 MEQ/L (98-107) (98-107) Blood Urea Nitrogen 22 MG/DL (7-18) Creatinine 1.50 MG/DL (0.60-1.30) Estimat Glomerular Filtration 40 ML/MIN (>89) 66 ML/MIN (>89) Rate Bedside Glucose 200 MG/DL (60-95) Random Glucose 200 MG/DL 111 MG/DL (74-106) (74-106) Triglycerides Level 236 MG/DL (42-150) HDL Cholesterol 28.3 MG/DL 34.2 MG/DL (40.0-60.0) (40.0-60.0) Hemoglobin A1c 6.1 % (4.3-6.0) Phosphorus Level 2.4 MG/DL (2.5-4.9) Urine Occult Blood TRACE (NEG) Urine Leukocyte Esterase MOD (NEG) Urine RBC 4 /hpf (0-3) Urine WBC 23 /hpf (0-5) Imaging Last Impressions Neck CTA 06/22/171618 Signed Impressions: Service Date/Time: June 17:42 - CONCLUSION: Mild wall calcification in the proximal internal carotid arteries bilateral without significant stenosis. Hunter Adan MD Head CTA 06/22/171618 Signed Impressions: Service Date/Time: June 17:42 - CONCLUSION: 1. Tortuous and ectatic basilar artery. 2. No evidence of vessel truncation or aneurysm. Hunter Adan MD Brain MRI 06/22/171618 Signed Impressions: Service Date/Time: June 19:53 - CONCLUSION: 1. Severe central and cortical atrophy. 2. No evidence of acute infarction or hemorrhage. Hunter Adan MD Head CT 06/22/17 0000 Signed Impressions: Service Date/Time: June 15:56 - CONCLUSION: 1. No acute intracranial abnormality is identified. There is a small amount of air in the cavernous sinus, presumably from recent IV access. 2. There is generalized cerebral atrophy with [id number] periventricular white matter low attenuation characteristic of chronic microvascular ischemia. 3. Mild enlarged and tortuous basilar artery. Chevy Latham MD PE at Discharge GENERAL: Resting comfortably, much more cooperative and conversive today EYES: No scleral icterus. No injection or drainage. CARDIOVASCULAR: Regular rate and rhythm without murmurs, gallops, or rubs. RESPIRATORY: Breath sounds equal bilaterally. No accessory muscle use. GASTROINTESTINAL: Abdomen soft, non-tender, nondistended. MUSCULOSKELETAL: No cyanosis, or edema. Status post right BKA, grossly intact range of motion of all 4 extremities Neurologic: No facial droop nor slurred speech noted Psych: Normal mood Hospital Course Patient was admitted, worked up for strokelike symptoms, CT and MRI scans did not show evidence of any new acute infarct. His mental status resumed relatively quickly back to baseline but he was agitated beyond normal for himself. Neurology had been consulted from the ER, started patient on blood thinner (eliquis) given he had A. fib upon presentation. Patient was initially very agitated during his hospital stay but by day of discharge he was much more cooperative and conversive. One of his elder daughters had come in and help elucidate that this was likely all due to dehydration and not an actual stroke. Nonetheless, patient understood that he had to take blood pressure medications and a blood thinner since he was a substantial stroke risk given uncontrolled pressures and the fact that he was noted to have atrial fibrillation. Patient vocalized understanding. Patient had met maximal benefit from hospitalization and is currently medically stable for discharge. Given that it still was not definitively clear the etiology of the patient's presentation, he was advised to avoid operating any heavy machinery, driving, or working or attending to any level of unprotected heights. Pt Condition on Discharge: Stable Discharge Disposition: Discharge Home Discharge Time: > 30 minutes Discharge Instructions DIET: Follow Instructions for: Heart Healthy Diet Activities you can perform: See Additionl Instruction Other Activity Instructions: Avoid driving, avoid operating heavy machinery, avoid working at heights Follow up Referrals: PCP Follow-up - 10 Days New Medications: Carvedilol (Coreg) 3.125 Mg Tab 3.125 MG PO BID Blood Pressure Management #60 Ref 0 TAB Apixaban (Eliquis) 5 Mg Tab 5 MG PO BID Blood Clot Prevention #60 TAB Lisinopril (Lisinopril) 20 Mg Tab 20 MG PO DAILY Blood Pressure Management #30 TAB Denzel Matthew MD Jun 24, 2017 17:15
== END 2017-06-24 14:44 | disposition home or self-care (01) | DRG 312 ==
LOC: NEPE 15:42 → EDBD 18:19 → NEDA 18:19 → N05B 19:00
PROVIDERS: ADMIT Hospitalist; ATTEND Hospitalist
PROC: 3E0F7GC Introduction of Other Therapeutic Substance into Respiratory Tract, Via Natural or Artificial Opening (ICD-10-PCS; principal; 2017-06-22)
DX: R55 Syncope and collapse (principal); N17.9 Acute kidney failure, unspecified; E87.5 Hyperkalemia; R47.01 Aphasia; I48.91 Unspecified atrial fibrillation; I10 Essential (primary) hypertension; F32.9 Major depressive disorder, single episode, unspecified; E78.5 Hyperlipidemia, unspecified; E86.0 Dehydration; Y92.481 Parking lot as the place of occurrence of the external cause; Z89.511 Acquired absence of right leg below knee; D64.9 Anemia, unspecified; R73.9 Hyperglycemia, unspecified; Z79.899 Other long term (current) drug therapy; E78.00 Pure hypercholesterolemia, unspecified; E87.6 Hypokalemia
CPT/HCPCS: 70450; 70496; 70498; 70553; 80048; 80061; 80307; 81001; 82435; 82550; 82565; 82607; 82746; 82947; 82948; 83036; 83735; 83921; 84100; 84132; 84295; 84425; 84439; 84443; 84450; 84460; 84484; 84520; 85018; 85025; 85384; 85610; 85652; 85730; 86038; 86592; 86850; 86900; 86901; 87086; 93005; 93306; 95819; 96361; 96374; A9577; J1815; J2060; J3480; J7030; Q9967

== ENCOUNTER 2017-08-29 12:47 | Emergency (ER) | payer OTHER ==
[~2017-08-29] VITALS: Ht 167.6 cm; Wt 70.5 kg
[~2017-08-29 12:47] MED LIST: APIX5TAB PO; CARV3.125 PO; LISI-515 PO
[2017-08-29 12:51] VITALS: BP 213/112; PULSE 89; RESP 26; TEMP 98.4; O2SAT 91
[2017-08-29 12:58] VITALS: BP 192/110; PULSE 90; RESP 16; O2SAT 95
--- NOTE | 2017-08-29 13:07 | PD ---
HPI Chief Complaint: Head Injury Time Seen by Provider: 12:55 Travel History International Travel<30 days: No Contact w/Intl Traveler<30days: No Traveled to known affect area: No History of Present Illness HPI 76-year-old male presents after being sent by the [place] for evaluation of closed head injury. On August 25 the patient reports that he was at his house when a large statue which was teetering on a ledge in his house fell and hit him in the head. He reports that he lost consciousness. At that time his granddaughter wanted him to go to the emergency room but he refused. [facility]. He is complaining of a mild 3 out of 10 right-sided headache, aching, constant, no alleviating factors. He denies confusion or amnesia, blurred vision, neck or back pain, chest pain or shortness of breath, injury to the extremities. He reports that he has not taken his eliquis or his blood pressure medication in the past few days because of the injury. He has no other complaints at this time. [facility] Past Medical History Hx Anticoagulant Therapy: Yes Social History Alcohol Use: No Tobacco Use: No Substance Use: No Allergies-Medications (Allergen,Severity, Reaction): Coded Allergies: No Known Allergies (Unverified , 08/29/17) PER PATIENT AND SON Reported Meds & Prescriptions Reported Meds & Active Scripts Active Eliquis (Apixaban) 5 Mg Tab 5 Mg PO BID Lisinopril 20 Mg Tab 20 Mg PO DAILY Review of Systems Except as stated in HPI: all other systems reviewed are Neg Physical Exam Narrative GENERAL: Well-developed well-nourished male in no acute distress resting comfortably on hospital bed. SKIN: Warm and dry. There is a contusion and small hematoma to the right forehead. There is some ecchymosis surrounding the right periorbital region. HEAD: Skin as noted above with no obvious bony step-offs. Normocephalic. EYES: Pupils equal and round reactive to light extraocular muscles are intact no proptosis. No scleral icterus. No injection or drainage. ENT: No nasal bleeding or discharge. Mucous membranes pink and moist. Tender to palpation right forehead, right maxilla. NECK: Trachea midline. No JVD. CARDIOVASCULAR: Regular rate and rhythm. No murmur appreciated. RESPIRATORY: No accessory muscle use. Clear to auscultation. Breath sounds equal bilaterally. GASTROINTESTINAL: Abdomen soft, non-tender, nondistended. Hepatic and splenic margins not palpable. MUSCULOSKELETAL: No obvious deformities. No tenderness to palpation along the cervical thoracic or lumbar midline spine. Normal range of motion of the upper and lower extremities. NEUROLOGICAL: Awake and alert. No obvious cranial nerve deficits. Motor grossly within normal limits. Normal speech. PSYCHIATRIC: Appropriate mood and affect; insight and judgment normal. Data Data Last Documented VS Vital Signs Date Time Temp Pulse Resp B/P (MAP) Pulse Ox O2 Delivery O2 Flow Rate FiO2 08/29/17 13:39 89 16 157/100 (119) 08/29/17 12:58 95 08/29/17 12:51 98.4 Room Air Orders Orders Ct Brain W/O Iv Contrast(Rout) (08/29/17 ) Ct Facial Bones W/O Iv Cont (08/29/17 ) Ice/Cold Pack (08/29/17 13:06) Ct Cerv Spine W/O Contrast (08/29/17 ) Lisinopril (Prinivil) (08/29/17 13:15) Carvedilol (Coreg) (08/29/17 13:15) MDM Medical Decision Making Medical Screen Exam Complete: Yes Emergency Medical Condition: Yes Medical Record Reviewed: Yes Interpretation(s) ct brain CONCLUSION: 1. Microvascular ischemic demyelinative change. 2. No acute intracranial abnormality. 3. Small hematoma within the scalp along the right frontal region. Differential Diagnosis Closed head injury, facial fracture, skull fracture, intracranial hemorrhage Narrative Course CT imaging of the brain, cervical spine and facial bones has been ordered. The patient will be provided an ice pack. The patient was administered his regular doses of lisinopril and carvedilol. CT imaging has been reviewed. He has a small hematoma to the right scalp. CONCLUSION: 1. 3 mm anterolisthesis of C5 on C6, likely degenerative. Flexion and extension views may be obtained if there is concern regarding ligamentous instability. 2. 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 3. No acute cervical fracture. There is no clinical evidence of ligamentous instability in the cervical spine. The patient is stable for discharge and [facility]. Diagnosis Primary Impression: Scalp hematoma Qualified Codes: S00.03XA - Contusion of scalp, initial encounter Additional Impression: Facial contusion Qualified Codes: S00.83XA - Contusion of other part of head, initial encounter Additional Instructions: Ice pack to the affected area several times a day 20 minutes at a time. [facility]. Return for any emergent medical conditions. Med/Other Pt SpecificInfo: No Change to Meds Disposition: 01 DISCHARGE HOME Condition: Stable Martin Henson Aug 29, 2017 13:07
[2017-08-29 13:14] VITALS: BP 163/103
[2017-08-29] MEDS ORDERED: CARVEDILOL 3.125 MG TAB PO ONE (13:15)
[2017-08-29] MEDS ORDERED: LISINOPRIL 20 MG TAB PO ONE (13:15)
[2017-08-29 13:39] VITALS: BP 157/100; PULSE 89; RESP 16
--- NOTE | 2017-08-29 13:54 | RADRPT ---
EXAM DATE/TIME: 08/29/2017 13:27 [facility] COMPARISON: CTA BRAIN W 3D RECON, June 22, 2017, 17:42. INDICATIONS : Fall, right eye swelling and bruising. RADIATION DOSE: 30.37 CTDIvol (mGy) MEDICAL HISTORY : None SURGICAL HISTORY : None. ENCOUNTER: Initial ACUITY: 4 - 6 days PAIN SCALE: 3/10 LOCATION: Right facial TECHNIQUE: Multiple contiguous axial images were obtained of the head. Using automated exposure control and adj ustment of the mA and/or kV according to patient size, radiation dose was kept as low as reasonably a chievable to obtain optimal diagnostic quality images. DICOM format image data is available electro nically for review and comparison. FINDINGS: CEREBRUM: The ventricles are normal for age. There is decreased attenuation of the periventricular white matter most consistent with moderate microvascular ischemic demyelinative change. No evidence of midline sh ift, mass lesion, hemorrhage or acute infarction. No extra-axial fluid collections are seen. POSTERIOR FOSSA: The cerebellum and brainstem are intact. The 4th ventricle is midline. The cerebellopontine angle i s unremarkable. EXTRACRANIAL: The visualized portion of the orbits is intact. SKULL: The calvaria is intact. No evidence of skull fracture. Note is made of a small hematoma within the s ubcutaneous tissues of the scalp along the right frontal region. CONCLUSION: 1. Microvascular ischemic demyelinative change. 2. No acute intracranial abnormality. 3. Small hematoma within the scalp along the right frontal region. Sotero Le MD on August 29, 2017 at 13:50 Board Certified Radiologist. This report was verified electronically.
--- NOTE | 2017-08-29 14:02 | RADRPT ---
EXAM DATE/TIME: 08/29/2017 13:27 [facility] COMPARISON: No previous studies available for comparison. INDICATIONS : Fall, right eye swelling and bruising. RADIATION DOSE: 22.93 CTDIvol (mGy) MEDICAL HISTORY : None SURGICAL HISTORY : None. ENCOUNTER: Initial ACUITY: 1 day PAIN SCALE: 3/10 LOCATION: Right facial TECHNIQUE: Volumetric scanning of the cervical spine was performed. Multiplanar reconstructions in the sagittal, coronal and oblique axial planes were performed. Using automated exposure control and adjustment o f the mA and/or kV according to patient size, radiation dose was kept as low as reasonably achievable to obtain optimal diagnostic quality images. DICOM format image data is available electronically f or review and comparison. FINDINGS: Vertebral body heights are maintained. Osseous structures are intact without evidence for acute bony fracture. Dens is intact. There is extensive degenerative spondylosis of the cervical spine with mult ilevel facet arthropathy most prominently at C5-7. There is 3 mm anterolisthesis of C5 on C6. There i s a normal C1-2 relationship. There is no significant prevertebral soft tissue hematoma. No significa nt cervical adenopathy or gross mass. The thyroid appears unremarkable. Visualized lung apices are cl ear without pneumothorax. CONCLUSION: 1. 3 mm anterolisthesis of C5 on C6, likely degenerative. Flexion and extension views may be obtained if there is concern regarding ligamentous instability. 2. 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 3. No acute cervical fracture. Shant Moore MD on August 29, 2017 at 13:54 Board Certified Radiologist. This report was verified electronically.
--- NOTE | 2017-08-29 14:09 | RADRPT ---
EXAM DATE/TIME: 08/29/2017 13:27 [facility] COMPARISON: No previous studies available for comparison. INDICATIONS : Fall, right eye swelling and bruising. RADIATION DOSE: 59.82 CTDIvol (mGy) MEDICAL HISTORY : None SURGICAL HISTORY : None. ENCOUNTER: Initial ACUITY: 4 - 6 days PAIN SCORE: 3/10 LOCATION: Right facial TECHNIQUE: Volumetric scanning of the facial bones was performed. Using automated exposure control and adjustme nt of the mA and/or kV according to patient size, radiation dose was kept as low as reasonably achiev able to obtain optimal diagnostic quality images. DICOM format image data is available electronicall y for review and comparison. FINDINGS: ORBITS: The orbital and infraorbital osseous structures are intact. The retroconal structures have a no rmal configuration. No radiopaque foreign bodies are seen. NASAL BONE: The nasal bone and maxillary spine are intact ZYGOMATIC ARCHES: Symmetric without evidence of fracture. SINUSES: The maxillary, ethmoid and frontal sinuses are intact. No air-fluid levels seen. NASAL CAVITY: The nasal septum is intact and midline. The lacrimal ducts are intact. SOFT TISSUES: No radiopaque foreign bodies seen. There is a small soft tissue hematoma in the right anterior s calp supraorbital region. INTRACRANIAL: No intracranial air seen. CRIBIFORM PLATE: Grossly intact. CONCLUSION: 1. No acute facial bone fractures. Shant Moore MD on August 29, 2017 at 14:00 Board Certified Radiologist. This report was verified electronically.
[2017-08-29 14:39] VITALS: BP 154/98
== END 2017-08-29 14:58 | disposition home or self-care (01) ==
LOC: NEPE 12:47
DX: S00.03XA Contusion of scalp, initial encounter (principal); S00.83XA Contusion of other part of head, initial encounter; R55 Syncope and collapse; Z79.01 Long term (current) use of anticoagulants; W20.8XXA Other cause of strike by thrown, projected or falling object, initial encounter; Y92.009 Unspecified place in unspecified non-institutional (private) residence as the place of occurrence of the external cause
CPT/HCPCS: 70450; 70486; 72125; 99285

== ENCOUNTER 2017-09-23 17:08 | Inpatient (IN) | payer OTHER ==
[~2017-09-23] VITALS: Ht 170.2 cm; Wt 67.2 kg
[2017-09-23] VITALS (9 sets, daily range): BP systolic 143–229; BP diastolic 79–129; PULSE 79–120; RESP 14–20; TEMP 97.4–99.6; O2SAT 95–98
[~2017-09-23 17:08] MED LIST changes: -CARV3.125 PO
[2017-09-23] MEDS ORDERED: SODIUM CHLOR 0.9% 1000 ML INJ 1,000 ML IV SCH ×2 (17:21)
[2017-09-23] MEDS ORDERED: DILTIAZEM HCL 25 MG/5 ML VIAL ONE ×2 (17:21)
[2017-09-23] MEDS ORDERED: SODIUM CHLORIDE 0.9% FLUSH 5 ML FLUSH IV FLUSH PRN ×2 (17:30)
--- NOTE | 2017-09-23 17:35 | PD ---
HPI Chief Complaint: altered mental status Time Seen by Provider: 17:21 Travel History International Travel<30 days: No Contact w/Intl Traveler<30days: No Traveled to known affect area: No History of Present Illness HPI This patient is very altered and unable to provide any useful history or review of systems. Paramedics report that he was driving around town erratically and police were following him to his home. He then got out of the car was crawling on hands and knees toward his house when paramedics showed up. He was very combative and tried to resist being evaluated. He was given multiple doses of Ativan, a total of 4 mg prior to arrival. He is now drowsy and unable to provide history. PFSH Past Medical History Hx Anticoagulant Therapy: Yes Atrial Fibrillation: Yes (NOTED IN HX NOTES) Cerebrovascular Accident: Yes (PT STATES "POSSIBLE" STROKE 07/2017) Hypertension: Yes Social History Alcohol Use: No Tobacco Use: No Substance Use: No Allergies-Medications (Allergen,Severity, Reaction): Coded Allergies: No Known Allergies (Unverified , 08/29/17) PER PATIENT AND SON Reported Meds & Prescriptions Reported Meds & Active Scripts Active Eliquis (Apixaban) 5 Mg Tab 5 Mg PO BID Lisinopril 20 Mg Tab 20 Mg PO DAILY Review of Systems ROS Limitations: Clinical Condition, Altered Mental Status, Uncooperative, Refused, Combative, Poor Historian Physical Exam Narrative GENERAL: Disheveled and sedated patient in restraints SKIN: Focused skin assessment reveals no rash and nodules. Skin is Warm and dry. HEAD: Atraumatic. Normocephalic. EYES: Pupils equal and round. No scleral icterus. No injection or drainage. ENT: No nasal bleeding or discharge. Mucous membranes pink and moist. NECK: Trachea midline. No JVD. No meningeal signs CARDIOVASCULAR: Irregularly irregular rhythm. No murmur appreciated. Heart rate 170 RESPIRATORY: No accessory muscle use. Clear to auscultation. Breath sounds equal bilaterally. GASTROINTESTINAL: Abdomen soft, non-tender, nondistended. Hepatic and splenic margins not palpable. MUSCULOSKELETAL: Has a right ilrea-jiv-fvaj amputation with artificial limb. No clubbing. No cyanosis. No edema. NEUROLOGICAL: Obtunded and drowsy. No obvious cranial nerve deficits. He is nonverbal. Impossible to test motor strength or sensation. PSYCHIATRIC: Drowsy and altered mood and affect; insight and judgment poor. Data Data Last Documented VS Vital Signs Date Time Temp Pulse Resp B/P (MAP) Pulse Ox O2 Delivery O2 Flow Rate FiO2 09/23/17 18:01 99 16 184/97 (126) 97 Nasal Cannula 2.00 09/23/17 17:25 99.6 Orders Orders Diltiazem Inj (Cardizem Inj) (09/23/17 17:21) Electrocardiogram (09/23/17 17:21) Basic Metabolic Panel (Bmp) (09/23/17 17:21) Complete Blood Count With Diff (09/23/17 17:21) Thyroid Stimulating Hormone (09/23/17 17:21) Urinalysis - C+S If Indicated (09/23/17 17:21) Ct Brain W/O Iv Contrast(Rout) (09/23/17 17:21) Ecg Monitoring (09/23/17 17:21) Iv Access Insert/Monitor (09/23/17 17:21) Cath For Specimen (09/23/17:21) Oximetry (09/23/17 17:21) Sodium Chloride 0.9% Flush (Ns Flush) (09/23/17 17:30) Sodium Chlor 0.9% 1000 Ml Inj (Ns 1000 M (09/23/17 17:21) Drug Screen, Random Urine (09/23/17 17:21) Alcohol (Ethanol) (09/23/17 17:21) Diltiazem Inj (Cardizem Inj) (09/23/17 17:45) Diltiazem Inj (Cardizem Inj) (09/23/17 19:15) Midazolam Inj (Versed Inj) (09/23/17 19:15) Labs Laboratory Tests Test 09/23/17 18:15 White Blood Count 10.0 TH/MM3 Red Blood Count 5.73 MIL/MM3 Hemoglobin 16.2 GM/DL Hematocrit 47.2 % Mean Corpuscular Volume 82.4 FL Mean Corpuscular Hemoglobin 28.2 PG Mean Corpuscular Hemoglobin Concent 34.2 % Red Cell Distribution Width 15.5 % Platelet Count 164 TH/MM3 Mean Platelet Volume 10.9 FL Neutrophils (%) (Auto) 76.5 % Lymphocytes (%) (Auto) 11.9 % Monocytes (%) (Auto) 10.8 % Eosinophils (%) (Auto) 0.5 % Basophils (%) (Auto) 0.3 % Neutrophils # (Auto) 7.6 TH/MM3 Lymphocytes # (Auto) 1.2 TH/MM3 Monocytes # (Auto) 1.1 TH/MM3 Eosinophils # (Auto) 0.1 TH/MM3 Basophils # (Auto) 0.0 TH/MM3 CBC Comment DIFF FINAL Differential Comment Urine Color YELLOW Urine Turbidity CLEAR Urine pH 6.0 Urine Specific [place] 1.015 Urine Protein TRACE mg/dL Urine Glucose (UA) NEG mg/dL Urine Ketones NEG mg/dL Urine Occult Blood LARGE Urine Nitrite NEG Urine Bilirubin NEG Urine Urobilinogen LESS THAN 2.0 MG/DL Urine Leukocyte Esterase TRACE Urine RBC 42 /hpf Urine WBC 5 /hpf Urine Squamous Epithelial Cells <1 /hpf Urine Hyaline Casts 3 /lpf Urine Mucus FEW /lpf Microscopic Urinalysis Comment CULT NOT INDICATED MDM Medical Decision Making Medical Screen Exam Complete: Yes Emergency Medical Condition: Yes Medical Record Reviewed: Yes Differential Diagnosis A. fib with RVR, SVT, intoxication, intracranial hemorrhage Narrative Course I have reviewed the patient's electronic medical record. Reviewed his most recent admission which included extensive neuroimaging IV placed 2 I gave him 1 L normal saline IV Extended cardiac monitoring reveals atrial fibrillation a rapid rate of 170 I gave him 20 mg IV Cardizem for rate control Initial blood pressure 140s systolic Heart rate came down to 130s I'm giving him a second dose of Cardizem Patient has been agitated and unable to get a CAT scan. I'm giving him some as needed Versed to sedate him so he get a CAT scan. This is a complex patient who will require admission but not ready at this point yet. Case checked out to oncoming physician to assist with that Lalo Macdonald MD Sep 23, 2017 17:35
[2017-09-23] MEDS ORDERED: DILTIAZEM HCL 25 MG/5 ML VIAL IV ONE ×4 (17:45→19:15)
[2017-09-23 18:43] LABS: AUTOMATED NEUTROPHIL # 7.6 TH/MM3 (1.8-7.7); BASOPHIL % 0.3 % (0.0-2.0); EOSINOPHIL # 0.1 TH/MM3 (0-0.4); EOSINOPHIL % 0.5 % (0.0-4.0); HEMATOCRIT 47.2 % (39.0-51.0); HEMOGLOBIN 16.2 GM/DL (13.0-17.0); LYMPH % 11.9 % (9.0-44.0); LYMPHOCYTE # 1.2 TH/MM3 (1.0-4.8); MEAN CELL VOLUME 82.4 FL (80.0-100.0); MEAN CORPUSCULAR HEMOGLOBIN 28.2 PG (27.0-34.0); MEAN CORPUSCULAR HGB CONC 34.2 % (32.0-36.0); MEAN PLATELET VOLUME 10.9 FL (7.0-11.0); MONO % 10.8 % (0.0-8.0); MONOCYTE # 1.1 TH/MM3 (0-0.9); NEUT % 76.5 % (16.0-70.0); PLATELET COUNT 164 TH/MM3 (150-450); RED BLOOD COUNT 5.73 MIL/MM3 (4.50-5.90); RED CELL DISTRIBUTION WIDTH 15.5 % (11.6-17.2)
[2017-09-23 18:49] LABS: BILIRUBIN, URINE NEG (NEG); BLOOD, URINE LARGE (NEG); GLUCOSE,URINE NEG (NEG); HYALINE CAST, URINE 3 /lpf (RARE); KETONE, URINE NEG (NEG); MUCUS URINE FEW /lpf (OCC); NITRITE,URINE NEG (NEG); SQUAMOUS EPITHELIAL CELL URINE <1 /hpf (0-5); URINE COLOR YELLOW (YELLW/STRAW); URINE LEUKOCYTE ESTERASE TRACE (NEG)
[2017-09-23] MEDS ORDERED: MIDAZOLAM HCL 5 MG/ML VIAL (1 ML) IV ONE ×2 (19:15)
--- NOTE | 2017-09-23 19:36 | PD ---
Physical Exam Narrative Received sign out from previous team to follow up CT scan and admit. Please see previous provider chart for further details. 77yo M was brought in because he was driving erratically and then was crawling when he got home so police brought him in. Pt was very agitated and had ativan 2mg IM and ativan 2mg IV by EVAC prior to arrival. I was told that he was still thrashing around here and was in afib RVR so cardizem 25mg was given. Pt' s heart rate did improve but now it is fluctuating back up to 110s to 120s. Another cardizem 20mg IV was ordered by previous provider. He also ordered 5mg of versed IV because pt was too agitated for CT scan. Labs reviewed, no leukocytosis. H/H normal. TSH normal. Glucose 91. UA showed WBC 5. Culture not indicated. Urine drug screen showed positive opiates, barbiturates and cocaine. Alcohol negative. I reviewed pt's record and he was here 06/22-06/24/17 for AMS and found to be in afib RVR. CT and MRI were negative and his mental status improved and was put on eliquis. Pt also was seen here 08/2017 for head injury. I feel that this altered mental status is likely secondary to drug use. However, pt required multiple IV doses of cardizem for his afib RVR and is still currently sedated and was still altered and not back to baseline so will admit for altered mental status and afib RVR. CT brain negative. HR is now in the 80s. Discussed with hospitalist and accepted to her service. Data Data Last Documented VS Vital Signs Date Time Temp Pulse Resp B/P (MAP) Pulse Ox O2 Delivery O2 Flow Rate FiO2 09/23/17 21:00 90 15 212/129 (156) 96 Nasal Cannula 2.00 09/23/17 17:25 99.6 Orders Orders Diltiazem Inj (Cardizem Inj) (09/23/17 17:21) Electrocardiogram (09/23/17 17:21) Basic Metabolic Panel (Bmp) (09/23/17 17:21) Complete Blood Count With Diff (09/23/17 17:21) Thyroid Stimulating Hormone (09/23/17 17:21) Urinalysis - C+S If Indicated (09/23/17 17:21) Ct Brain W/O Iv Contrast(Rout) (09/23/17 17:21) Ecg Monitoring (09/23/17 17:21) Iv Access Insert/Monitor (09/23/17 17:21) Cath For Specimen (09/23/17 17:21) Oximetry (09/23/17 17:21) Sodium Chloride 0.9% Flush (Ns Flush) (09/23/17 17:30) Sodium Chlor 0.9% 1000 Ml Inj (Ns 1000 M (09/23/17 17:21) Drug Screen, Random Urine (09/23/17 17:21) Alcohol (Ethanol) (09/23/17 17:21) Diltiazem Inj (Cardizem Inj) (09/23/17 17:45) Diltiazem Inj (Cardizem Inj) (09/23/17 19:15) Midazolam Inj (Versed Inj) (09/23/17 19:15) Private Branch [employer] Service Adviser / Telemetry [id number] (09/23/17 19:36) Resp Et Co2 Monitor (09/23/17 ) Admit Order (Ed Use Only) (09/23/17 21:31) Labs Laboratory Tests Test 09/23/17 01:20 09/23/17 18:15 09/23/17 19:19 Total Protein 8.0 GM/DL Alkaline Phosphatase 84 U/L White Blood Count 10.0 TH/MM3 Red Blood Count 5.73 MIL/MM3 Hemoglobin 16.2 GM/DL Hematocrit 47.2 % Mean Corpuscular Volume 82.4 FL Mean Corpuscular Hemoglobin 28.2 PG Mean Corpuscular Hemoglobin Concent 34.2 % Red Cell Distribution Width 15.5 % Platelet Count 164 TH/MM3 Mean Platelet Volume 10.9 FL Neutrophils (%) (Auto) 76.5 % Lymphocytes (%) (Auto) 11.9 % Monocytes (%) (Auto) 10.8 % Eosinophils (%) (Auto) 0.5 % Basophils (%) (Auto) 0.3 % Neutrophils # (Auto) 7.6 TH/MM3 Lymphocytes # (Auto) 1.2 TH/MM3 Monocytes # (Auto) 1.1 TH/MM3 Eosinophils # (Auto) 0.1 TH/MM3 Basophils # (Auto) 0.0 TH/MM3 CBC Comment DIFF FINAL Differential Comment Urine Color YELLOW Urine Turbidity CLEAR Urine pH 6.0 Urine Specific [place] 1.015 Urine Protein TRACE mg/dL Urine Glucose (UA) NEG mg/dL Urine Ketones NEG mg/dL Urine Occult Blood LARGE Urine Nitrite NEG Urine Bilirubin NEG Urine Urobilinogen LESS THAN 2.0 MG/DL Urine Leukocyte Esterase TRACE Urine RBC 42 /hpf Urine WBC 5 /hpf Urine Squamous Epithelial Cells <1 /hpf Urine Hyaline Casts 3 /lpf Urine Mucus FEW /lpf Microscopic Urinalysis Comment CULT NOT INDICATED Blood Urea Nitrogen 19 MG/DL Creatinine 1.16 MG/DL Random Glucose 91 MG/DL Calcium Level 9.5 MG/DL Sodium Level 141 MEQ/L Potassium Level 3.7 MEQ/L Chloride Level 106 MEQ/L Carbon Dioxide Level 25.3 MEQ/L Anion Gap 10 MEQ/L Estimat Glomerular Filtration Rate 61 ML/MIN Thyroid Stimulating Hormone 3rd Gen 1.610 uIU/ML Ethyl Alcohol Level LESS THAN 3 MG/DL Urine Opiates Screen POS Urine Barbiturates Screen POS Urine Amphetamines Screen NEG Urine Benzodiazepines Screen NEG Urine Cocaine Screen POS Urine Cannabinoids Screen NEG MDM Supervised Visit with [facility]: No Interpretation(s) EKG: Afib at 114bpm. LVH. Normal axis. Scripts Diltiazem CD 24 HR (Cardizem CD 24 HR) 120 Mg Caper 120 MG PO DAILY for a-fib, #30 CAP 0 Refills Prov: Guillermina Payton MD 09/25/17 Tootie Castro DO Sep 23, 2017 19:36
[2017-09-23 19:38] LABS: BICARBONATE 25.3 MEQ/L (21.0-32.0); BLOOD UREA NITROGEN 19 MG/DL (7-18); CALCIUM 9.5 MG/DL (8.5-10.1); CHLORIDE 106 MEQ/L (98-107); CREATININE 1.16 MG/DL (0.60-1.30); GLOMERULAR FILTRATION RATE 61 ML/MIN (>89); GLUCOSE,RANDOM 91 MG/DL (74-106); SODIUM (NA) 141 MEQ/L (136-145)
--- NOTE | 2017-09-23 20:04 | RADRPT ---
EXAM DATE/TIME: 09/23/2017 19:49 [facility] COMPARISON: CT BRAIN W/O CONTRAST, August 29, 2017, 13:27. INDICATIONS : Altered mental status. RADIATION DOSE: 33.86 CTDIvol (mGy) MEDICAL HISTORY : Hypertension. CVA. A-fib. SURGICAL HISTORY : None. ENCOUNTER: Initial ACUITY: 1 day PAIN SCALE: Non-responsive LOCATION: cranial TECHNIQUE: Multiple contiguous axial images were obtained of the head. Using automated exposure control and adj ustment of the mA and/or kV according to patient size, radiation dose was kept as low as reasonably a chievable to obtain optimal diagnostic quality images. DICOM format image data is available electro nically for review and comparison. FINDINGS: There is mild atrophy and moderate hypodensity in the bilateral periventricular white matter characte ristic of chronic microvascular ischemic disease. No signs of acute infarct, hemorrhage or mass. No f ractures. CONCLUSION: No significant change has occurred. Khanh Escobar MD on September 23, 2017 at 20:02 Board Certified Radiologist. This report was verified electronically.
[2017-09-23] MEDS ORDERED: SODIUM CHLORIDE 0.9% FLUSH 10 ML FLUSH IV FLUSH PRN ×2 (22:00)
[2017-09-23] MEDS ORDERED: HEPARIN SODIUM - SQ 10,000 UNITS/ML VIAL SQ SCH ×2 (22:15)
[2017-09-23] MEDS ORDERED: hydrALAZINE HCL 20 MG/ML VIAL IV PUSH ONE ×2 (23:15)
[2017-09-24] VITALS (12 sets, daily range): BP systolic 130–165; BP diastolic 60–107; PULSE 77–102; RESP 18–21; TEMP 97.4–98.7; O2SAT 94–97
--- NOTE | 2017-09-24 01:03 | HHI.HP ---
HPI Service Family Medicine Primary Care Physician Unknown Admission Diagnosis Altered mental status, afib RVR Diagnoses: International Travel<30 Days: No Contact w/Intl Traveler<30days: No Known Affected Area: No History of Present Illness 77-year-old male brought to the emergency department by EMS after police found him driving his car erratically and followed him home. Upon arriving home, the patient was reportedly crawling on the ground at which time EMS arrived to take him for evaluation. The patient was combative and required 4 mg of Ativan in route to the ED. Tox screen significant for positive opiates, barbiturates and cocaine. Patient was found to be in A. fib with RVR and required 2 doses of IV diltiazem to achieve rate control. Patient admits to being on Eliquis at home although cannot tell me why. During the interview, the patient is uncooperative and refuses to answer questions especially those concerning his drug use. He does not know his past medical history. He was hypertensive in the emergency department requiring hydralazine. Patient is currently in A. fib with a heart rate of 105. 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 Reported Medications Reported Meds & Active Scripts Active Eliquis (Apixaban) 5 Mg Tab 5 Mg PO BID Lisinopril 20 Mg Tab 20 Mg PO DAILY Allergies: Coded Allergies: No Known Allergies (Unverified Allergy, Unknown, 09/23/17) PER PATIENT AND SON Family History Patient refuses to answer Social History Patient refuses to answer Physical Exam Vital Signs Vital Signs Date Time Temp Pulse Resp B/P (MAP) Pulse Ox O2 Delivery O2 Flow Rate FiO2 09/23/17 23:48 09/23/17 23:35 97.4 88 16 147/79 (101) 95 09/23/17 23:21 90 16 146/102 (117) 97 Nasal Cannula 2.00 09/23/17 22:22 95 14 229/119 (155) 96 Nasal Cannula 2.00 09/23/17 21:00 90 15 212/129 (156) 96 Nasal Cannula 2.00 09/23/17 20:00 98 09/23/17 20:00 98 Nasal Cannula 2.00 09/23/17 20:00 79 14 186/104 (131) 95 Nasal Cannula 2.00 09/23/17 19:40 79 16 180/86 (117) 98 Room Air 09/23/17 19:34 120 16 200/101 (134) 98 Room Air 09/23/17 18:01 99 16 184/97 (126) 97 Nasal Cannula 2.00 09/23/17 17:25 99.6 108 20 143/86 (105) 97 Physical Exam GENERAL: Elderly white male sitting up in bed SKIN: No rashes, ecchymoses or lesions. Cool and dry. HEAD: Atraumatic. Normocephalic. No temporal or scalp tenderness. EYES: Pupils pinpoint. Extraocular motions intact. No scleral icterus. No injection or drainage. ENT: Nose without bleeding, purulent drainage or septal hematoma. Throat without erythema, tonsillar hypertrophy or exudate. Uvula midline. Airway patent. NECK: Trachea midline. No JVD or lymphadenopathy. Supple, nontender, no meningeal signs. CARDIOVASCULAR: Irregular rate without murmurs rubs or gallops. RESPIRATORY: Clear to auscultation. Breath sounds equal bilaterally. No wheezes , rales, or rhonchi. GASTROINTESTINAL: Abdomen soft, non-tender, nondistended. No hepato-splenomegaly , or palpable masses. No guarding. MUSCULOSKELETAL: Extremities without clubbing, cyanosis, or edema. No joint tenderness, effusion, or edema noted. Right AKA. NEUROLOGICAL: Awake and alert. Motor and sensory grossly within normal limits. Difficult to assess neuro status as patient is uncooperative. Laboratory Laboratory Tests Test 09/23/17 18:15 09/23/17 19:19 White Blood Count 10.0 Red Blood Count 5.73 Hemoglobin 16.2 Hematocrit 47.2 Mean Corpuscular Volume 82.4 Mean Corpuscular Hemoglobin 28.2 Mean Corpuscular Hemoglobin Concent 34.2 Red Cell Distribution Width 15.5 Platelet Count 164 Mean Platelet Volume 10.9 Neutrophils (%) (Auto) 76.5 Lymphocytes (%) (Auto) 11.9 Monocytes (%) (Auto) 10.8 Eosinophils (%) (Auto) 0.5 Basophils (%) (Auto) 0.3 Neutrophils # (Auto) 7.6 Lymphocytes # (Auto) 1.2 Monocytes # (Auto) 1.1 Eosinophils # (Auto) 0.1 Basophils # (Auto) 0.0 CBC Comment DIFF FINAL Differential Comment Urine Color YELLOW Urine Turbidity CLEAR Urine pH 6.0 Urine Specific [place] 1.015 Urine Protein TRACE Urine Glucose (UA) NEG Urine Ketones NEG Urine Occult Blood LARGE Urine Nitrite NEG Urine Bilirubin NEG Urine Urobilinogen LESS THAN 2.0 Urine Leukocyte Esterase TRACE Urine RBC 42 Urine WBC 5 Urine Squamous Epithelial Cells <1 Urine Hyaline Casts 3 Urine Mucus FEW Microscopic Urinalysis Comment CULT NOT INDICATED Blood Urea Nitrogen 19 Creatinine 1.16 Random Glucose 91 Calcium Level 9.5 Sodium Level 141 Potassium Level 3.7 Chloride Level 106 Carbon Dioxide Level 25.3 Anion Gap 10 Estimat Glomerular Filtration Rate 61 Thyroid Stimulating Hormone 3rd Gen 1.610 Ethyl Alcohol Level LESS THAN 3 Urine Opiates Screen POS Urine Barbiturates Screen POS Urine Amphetamines Screen NEG Urine Benzodiazepines Screen NEG Urine Cocaine Screen POS Urine Cannabinoids Screen NEG Result Diagram: 09/23/17181409/23/171814 Caprini VTE Risk Assessment Caprini VTE Risk Assessment: Mod/High Risk (score >= 2) Caprini Risk Assessment Model Point Value = 1 Point Value = 2 Point Value = 3 Point Value = 5 Age 41-60 Minor surgery BMI > 25 kg/m2 Swollen legs Varicose veins or History of unexplained or recurrent spontaneous Oral contraceptives or hormone replacement Sepsis (< 1 month) Serious lung disease, including pneumonia (< 1 month) Abnormal pulmonary function Acute myocardial infarction Congestive heart failure (< 1 month) History of inflammatory bowel disease Medical patient at bed rest Age 61-74 Arthroscopic surgery Major open surgery (> 45 min) Laparoscopic surgery (> 45 min) Malignancy Confined to bed (> 72 hours) Immobilizing plaster cast Central venous access Age >= 75 History of VTE Family history of VTE Factor V Leiden Prothrombin [id number] Lupus anticoagulant Anticardiolipin antibodies Elevated serum homocysteine Heparin-induced thrombocytopenia Other congenital or acquired thrombophilia Stroke (< 1 month) Elective arthroplasty Hip, pelvis, or leg fracture Acute spinal cord injury (< 1 month) Prophylaxis Regimen Total Risk Factor Score Risk Level Prophylaxis Regimen 0-1 Low Early ambulation 2 Moderate Order ONE of the following: *Sequential Compression Device (SCD) *Heparin 5000 units SQ BID 3-4 Higher Order ONE of the following medications: *Heparin 5000 units SQ TID *Enoxaparin/Lovenox 40 mg SQ daily (WT < 150 kg, CrCl > 30 mL/min) *Enoxaparin/Lovenox 30 mg SQ daily (WT < 150 kg, CrCl > 10-29 mL/min) *Enoxaparin/Lovenox 30 mg SQ BID (WT < 150 kg, CrCl > 30 mL/min) AND/OR *Sequential Compression Device (SCD) 5 or more Highest Order ONE of the following medications: *Heparin 5000 units SQ TID (Preferred with Epidurals) *Enoxaparin/Lovenox 40 mg SQ daily (WT < 150 kg, CrCl > 30 mL/min) *Enoxaparin/Lovenox 30 mg SQ daily (WT < 150 kg, CrCl > 10-29 mL/min) *Enoxaparin/Lovenox 30 mg SQ BID (WT < 150 kg, CrCl > 30 mL/min) AND *Sequential Compression Device (SCD) Assessment and Plan Assessment and Plan 77-year-old male with unclear past medical history presents in A. fib with RVR and urine drug screen positive for opiates, barbiturates and cocaine. 1. A. fib with RVR Required 2 doses of IV diltiazem in the ED to achieve rate control Transition to by mouth diltiazem Monitor, patient may require diltiazem drip Continue home Eliquis 2. Hypertension Patient with a blood pressure of 229/119 in the ED, responded to hydralazine Restarted home lisinopril Clonidine when necessary Suspect elevated blood pressure secondary to cocaine use FEN Heart healthy diet Monitor electrolytes: Replete. Eliquis Physician Certification 2 Midnight Certification Type: Admission for Inpatient Services Order for Inpatient Services The services are ordered in accordance with Medicare regulations or non- Medicare payer requirements, as applicable. In the case of services not specified as inpatient-only, they are appropriately provided as inpatient services in accordance with the 2-midnight benchmark. Estimated LOS (days): 2 2 days is the estimated time the patient will need to remain in the hospital, assuming treatment plan goals are met and no additional complications. Post-Hospital Plan: Not yet determined Taina Thomason MD Sep 24, 2017 01:03
[2017-09-24 01:04] LABS: BLOOD UREA NITROGEN 14 MG/DL (7-18)
[2017-09-24 01:05] LABS: ALBUMIN 3.8 GM/DL (3.4-5.0); ALT (GPT) 27 U/L (12-78); AST (GOT) 20 U/L (15-37); BICARBONATE 24.4 MEQ/L (21.0-32.0); CALCIUM 8.8 MG/DL (8.5-10.1); CHLORIDE 108 MEQ/L (98-107); GLUCOSE,RANDOM 125 MG/DL (74-106); MAGNESIUM 2.2 MG/DL (1.5-2.5); SODIUM (NA) 142 MEQ/L (136-145); TOTAL BILIRUBIN ADULT 0.6 MG/DL (0.2-1.0)
[2017-09-24 01:12] LABS: ALKALINE PHOSPHATASE 84 U/L (45-117)
[2017-09-24 01:14] LABS: GLOMERULAR FILTRATION RATE 93 ML/MIN (>89)
[2017-09-24] MEDS: DILTIAZEM HCL 30 MG TAB PO SCH ×6 (05:27→17:39)
[2017-09-24] MEDS ORDERED: LORazepam 2 MG/ML VIAL IV PUSH PRN ×2 (07:30)
--- NOTE | 2017-09-24 07:41 | HHI.PR ---
Subjective Remarks in no acute distress. awake and alert but not fully oriented. HR better controlled over night. at times anxious. d/w the RN. Objective Vitals Vital Signs Date Time Temp Pulse Resp B/P (MAP) Pulse Ox O2 Delivery O2 Flow Rate FiO2 09/24/17 04:00 97.4 88 18 130/60 (83) 97 09/24/17 00:01 89 09/24/17 00:00 Room Air 09/23/17 23:48 09/23/17 23:35 97.4 88 16 147/79 (101) 95 09/23/17 23:21 90 16 146/102 (117) 97 Nasal Cannula 2.00 09/23/17 22:22 95 14 229/119 (155) 96 Nasal Cannula 2.00 09/23/17 21:00 90 15 212/129 (156) 96 Nasal Cannula 2.00 09/23/17 20:00 98 09/23/17 20:00 98 Nasal Cannula 2.00 09/23/17 20:00 79 14 186/104 (131) 95 Nasal Cannula 2.00 09/23/17 19:40 79 16 180/86 (117) 98 Room Air 09/23/17 19:34 120 16 200/101 (134) 98 Room Air 09/23/17 18:01 99 16 184/97 (126) 97 Nasal Cannula 2.00 09/23/17 17:25 99.6 108 20 143/86 (105) 97 I/O 09/23/17 09/23/17 09/23/17 09/24/17 09/24/17 09/24/17 07:00 15:00 23:00 07:00 15:00 23:00 Intake Total 1000 ml 240 ml Output Total 625 ml Balance 1000 ml -385 ml Intake Oral 240 ml IV Total 1000 ml Output Urine Total 625 ml # Bowel Movements 0 Result Diagram: 09/23/17181409/23/171814 Imaging Last Impressions Head CT 09/23/17 1721 Signed Impressions: Service Date/Time: Monday, September 23, 2017 19:49 - CONCLUSION: No significant change has occurred. Khanh Escobar MD Objective Remarks GENERAL: This is a well-nourished, well-developed patient, in no apparent distress. CARDIOVASCULAR: Regular rate and irregular rhythm without murmurs, gallops, or rubs. RESPIRATORY: Clear to auscultation. Breath sounds equal bilaterally. No wheezes , rales, or rhonchi. GASTROINTESTINAL: Abdomen soft, non-tender, nondistended. Normal, active bowel sounds MUSCULOSKELETAL: s/p right BKA NEURO: awake and alert- oriented to person and partly to time and place. Medications and IVs Current Medications Diltiazem HCl (Cardizem Inj) 25 mg STK-MED ONCE .ROUTE ; Start 09/23/17 at 17:21 ; Stop 09/23/17 at 17:22; Status DC IV Flush (NS Flush) 2 ml UNSCH PRN IV FLUSH FLUSH AFTER USING IV ACCESS; Start 09/23/17 at 17:30; Stop 09/23/17 at 22:05; Status DC Sodium Chloride 1,000 ml @ 1,000 mls/hr Q1H IV Last administered on 09/23/17 18:38; Start 09/23/17 at 17:21; Stop 09/23/17 at 18:20; Status DC Diltiazem HCl (Cardizem Inj) 20 mg ONCE ONCE IV Last administered on 18:39; Start 09/23/17 at 17:45; Stop 09/23/17 at 17:46; Status DC Diltiazem HCl (Cardizem Inj) 20 mg ONCE ONCE IV Last administered on 19:34; Start 09/23/17 at 19:15; Stop 09/23/17 at 19:16; Status DC Midazolam HCl (Versed Inj) 5 mg ONCE ONCE IV Last administered on 09/23/17 19 :19; Start 09/23/17 at 19:15; Stop 09/23/17 at 19:16; Status DC Sodium Chloride (NS Flush) 2 ml UNSCH PRN IV FLUSH FLUSH AFTER USING IV ACCESS ; Start 09/23/17 at 22:00 Sodium Chloride (NS Flush) 2 ml BID IV FLUSH ; Start 09/24/17 at 09:00 Aspirin (Aspirin Chew) 81 mg DAILY PO ; Start 09/24/17 at 09:00 Heparin Sodium (Porcine) (Heparin Inj) 5,000 units Q8HR SQ Last administered on 09/23/17 22:48; Start 09/23/17 at 22:15; Stop 09/24/17 at 00:58; Status DC Hydralazine HCl (Apresoline Inj) 20 mg ONCE ONCE IV PUSH Last administered on 09/23/17 23:12; Start 09/23/17 at 23:15; Stop 09/23/17 at 23:16; Status DC Diltiazem HCl (Cardizem) 30 mg Q6HR PO Last administered on 09/24/17 05:27; Start 09/24/17 at 06:00 Apixaban (Eliquis) 5 mg BID PO ; Start 09/24/17 at 09:00 Lisinopril (Prinivil) 20 mg DAILY PO ; Start 09/24/17 at 09:00 A/P Assessment and Plan A/P 1. A. fib with RVR- now HR better controlled. continue po cardizem Monitor, patient may require diltiazem drip Continue home Eliquis recent echo three months ago with EF 60% and mild LVH 2. Hypertension- improved. Restarted home lisinopril Clonidine when necessary Suspect elevated blood pressure secondary to cocaine use 3. history of TIA patient had a recent neurological work-up three months ago and started on eliquis per neurology. DVT prophylaxis with eliquis consult PT. Discharge Planning case management consulted to assist with dc planning. Guillermina Payton MD Sep 24, 2017 07:41
[2017-09-24] MEDS: APIXABAN 5 MG TABLET PO SCH ×4 (08:28→21:48)
[2017-09-24] MEDS: ASPIRIN 81 MG CHEW TAB PO SCH ×2 (08:28)
[2017-09-24] MEDS: LISINOPRIL 20 MG TAB PO SCH ×2 (08:28)
[2017-09-24] MEDS: SODIUM CHLORIDE 0.9% FLUSH 10 ML FLUSH IV FLUSH SCH ×4 (08:28→21:48)
[2017-09-24 08:39] LABS: HEMATOCRIT 44.9 % (39.0-51.0); MEAN CELL VOLUME 82.8 FL (80.0-100.0); MEAN CORPUSCULAR HEMOGLOBIN 27.6 PG (27.0-34.0); MEAN CORPUSCULAR HGB CONC 33.4 % (32.0-36.0); MEAN PLATELET VOLUME 11.3 FL (7.0-11.0); PLATELET COUNT 157 TH/MM3 (150-450); RED BLOOD COUNT 5.42 MIL/MM3 (4.50-5.90); RED CELL DISTRIBUTION WIDTH 15.4 % (11.6-17.2); WHITE BLOOD COUNT 8.8 TH/MM3 (4.0-11.0)
--- NOTE | 2017-09-24 12:33 | EKG ---
Date Performed: 09/23/2017 Time Performed: 19:28:35 PTAGE: 77 years EKG: ATRIAL FIBRILLATION WITH RAPID VENTRICULAR RESPONSE VOLTAGE CRITERIA FOR LVH NONSPECIFIC ST & T-WAVE ABNORMALITY ABNORMAL ECG PREVIOUS TRACING : 06/22/2017 15.49 Compared to prior tracing no significant change DOCTOR: Bert Alatorre Interpretating Date/Time 09/24/2017 12:30:55
[2017-09-24] MEDS ORDERED: ENALAPRILAT 1.25 MG/ML VIAL IV PUSH PRN ×2 (13:30)
[2017-09-25] VITALS: BP 134/86; PULSE 92; RESP 16; TEMP 98.5; O2SAT 95
[2017-09-25] MEDS: DILTIAZEM HCL 30 MG TAB PO SCH ×6 (01:18→13:13)
[2017-09-25 04:00] VITALS: BP 155/84; PULSE 70; RESP 16; TEMP 98.3; O2SAT 99
[2017-09-25 08:00] VITALS: BP 135/87; PULSE 60; PULSE 61; RESP 17; TEMP 98.2; O2SAT 96
[2017-09-25] MEDS: ASPIRIN 81 MG CHEW TAB PO SCH ×2 (08:13)
[2017-09-25] MEDS: LISINOPRIL 20 MG TAB PO SCH ×2 (08:13)
[2017-09-25] MEDS: SODIUM CHLORIDE 0.9% FLUSH 10 ML FLUSH IV FLUSH SCH ×2 (08:14)
[2017-09-25] MEDS: APIXABAN 5 MG TABLET PO SCH ×2 (08:14)
--- NOTE | 2017-09-25 08:14 | HHI.PR ---
Subjective Remarks resting comfortably with no distress. denies chest pain, sob or dizziness. HR stable over night. d/w the RN and no acute issues over night. Objective Vitals Vital Signs Date Time Temp Pulse Resp B/P (MAP) Pulse Ox O2 Delivery O2 Flow Rate FiO2 09/25/17 04:00 98.3 70 16 155/84 (107) 99 09/25/17 00:00 98.5 92 16 134/86 (102) 95 09/24/17 20:13 77 09/24/17 20:00 98.7 84 18 140/66 (90) 96 09/24/17 20:00 Room Air 09/24/17 16:07 98.2 92 18 155/99 (117) 95 09/24/17 15:00 102 09/24/17 13:15 155/101 (119) 09/24/17 12:27 98.0 84 21 165/107 (126) 94 09/24/17 10:36 96 21 I/O 09/24/17 09/24/17 09/24/17 09/25/17 09/25/17 09/25/17 07:00 15:00 23:00 07:00 15:00 23:00 Intake Total 240 ml 240 ml 2 ml 240 ml Output Total 625 ml 500 ml Balance -385 ml 240 ml 2 ml -260 ml Intake Oral 240 ml 240 ml 240 ml IV Total 2 ml Output Urine Total 625 ml 500 ml # Bowel Movements 0 0 Result Diagram: 09/24/17 0754 09/23/17 1815 Imaging Last Impressions Head CT 09/23/17 1721 Signed Impressions: Service Date/Time: Saturday, September 23, 2017 19:49 - CONCLUSION: No significant change has occurred. Khanh Escobar MD Objective Remarks GENERAL: This is a well-nourished, well-developed patient, in no apparent distress. CARDIOVASCULAR: Regular rate and irregular rhythm without murmurs, gallops, or rubs. RESPIRATORY: Clear to auscultation. Breath sounds equal bilaterally. No wheezes , rales, or rhonchi. GASTROINTESTINAL: Abdomen soft, non-tender, nondistended. Normal, active bowel sounds MUSCULOSKELETAL: s/p right BKA NEURO: awake and alert- oriented to person and partly to time and place. Procedures none Medications and IVs Current Medications Diltiazem HCl (Cardizem Inj) 25 mg STK-MED ONCE .ROUTE ; Start 09/23/17 at 17:21 ; Stop 09/23/17 at 17:22; Status DC IV Flush (NS Flush) 2 ml UNSCH PRN IV FLUSH FLUSH AFTER USING IV ACCESS; Start 09/23/17 at 17:30; Stop 09/23/17 at 22:05; Status DC Sodium Chloride 1,000 ml @ 1,000 mls/hr Q1H IV Last administered on 09/23/17 18:38; Start 09/23/17 at 17:21; Stop 09/23/17 at 18:20; Status DC Diltiazem HCl (Cardizem Inj) 20 mg ONCE ONCE IV Last administered on 18:39; Start 09/23/17 at 17:45; Stop 09/23/17 at 17:46; Status DC Diltiazem HCl (Cardizem Inj) 20 mg ONCE ONCE IV Last administered on 19:34; Start 09/23/17 at 19:15; Stop 09/23/17 at 19:16; Status DC Midazolam HCl (Versed Inj) 5 mg ONCE ONCE IV Last administered on 09/23/17 19 :19; Start 09/23/17 at 19:15; Stop 09/23/17 at 19:16; Status DC Sodium Chloride (NS Flush) 2 ml UNSCH PRN IV FLUSH FLUSH AFTER USING IV ACCESS ; Start 09/23/17 at 22:00 Sodium Chloride (NS Flush) 2 ml BID IV FLUSH Last administered on 09/24/17 21: 48; Start 09/24/17 at 09:00 Aspirin (Aspirin Chew) 81 mg DAILY PO Last administered on 09/24/17 08:28; Start 09/24/17 at 09:00 Heparin Sodium (Porcine) (Heparin Inj) 5,000 units Q8HR SQ Last administered on 09/23/17 22:48; Start 09/23/17 at 22:15; Stop 09/24/17 at 00:58; Status DC Hydralazine HCl (Apresoline Inj) 20 mg ONCE ONCE IV PUSH Last administered on 09/23/17 23:12; Start 09/23/17 at 23:15; Stop 09/23/17 at 23:16; Status DC Diltiazem HCl (Cardizem) 30 mg Q6HR PO Last administered on 09/25/17 05:28; Start 09/24/17 at 06:00 Apixaban (Eliquis) 5 mg BID PO Last administered on 09/24/17 21:48; Start 09/24/17 at 09:00 Lisinopril (Prinivil) 20 mg DAILY PO Last administered on 09/24/17 08:28; Start 09/24/17 at 09:00 Lorazepam (Ativan Inj) 1 mg Q6H PRN IV PUSH ANXIETY AND/OR AGITATION; Start at 07:30 Enalaprilat (Vasotec Inj) 1.25 mg Q8H PRN IV PUSH SBP> OR = 180, DBP> OR = 100 Last administered on 09/24/17 13:29; Start 09/24/17 at 13:30 A/P Assessment and Plan A/P 1. A. fib with RVR- now HR better controlled. continue po cardizem Continue home Eliquis recent echo three months ago with EF 60% and mild LVH 2. Hypertension- improved. Restarted home lisinopril continue cardizem Clonidine when necessary Suspect elevated blood pressure secondary to cocaine use 3. history of TIA patient had a recent neurological work-up three months ago and started on eliquis per neurology. DVT prophylaxis with eliquis consult PT. Discharge Planning likely dc home later today after seen and cleared by PT. case management for [facility] see med list. d/w the patient and RN. d/w the patient's son. Guillermina Payton MD Sep 25, 2017 08:14
[2017-09-25] MEDS ORDERED: CARD120C4 PO ×2 (08:15)
--- NOTE | 2017-09-25 08:18 | HHI.FF ---
Face to Face Verification Diagnosis: (1) Altered mental status (2) A-fib Physical Therapy Order: Evaluate and Treat Home Health Nursing Order: Medical education Signs/symptoms of disease process Medication education-adverse effect Nursing assessment with vital signs I have seen patient Chace Kuo on 09/25/17. My clinical findings support the need for the requested home health care services because: Ltd mobility - disease progression I certify that my clinical findings support that this patient is homebound because: Unsteady gait/balance Guillermina Payton MD Sep 25, 2017 08:17
--- NOTE | 2017-09-25 08:19 | HHI.DS ---
Discharge Summary Admission Date Sep 23, 2017 at 21:33 Discharge Date: Sep 25, 2017 Admitting Diagnosis Altered mental status, afib RVR (1) Altered mental status ICD Code: R41.82 - Altered mental status, unspecified Diagnosis: Principal Status: Acute (2) A-fib ICD Code: I48.91 - Unspecified atrial fibrillation Diagnosis: Principal Procedures none Brief History - From Admission 77-year-old male brought to the emergency department by EMS after police found him driving his car erratically and followed him home. Upon arriving home, the patient was reportedly crawling on the ground at which time EMS arrived to take him for evaluation. The patient was combative and required 4 mg of Ativan in route to the ED. Tox screen significant for positive opiates, barbiturates and cocaine. CBC/BMP: 09/24/17 0754 09/23/17 1815 Significant Findings Laboratory Tests Test 09/23/17 01:20 09/23/17 18:15 09/23/17 19:19 09/24/17 07:54 Neutrophils (%) (Auto) 76.5 % (16.0-70.0) Monocytes (%) (Auto) 10.8 % (0.0-8.0) Monocytes # (Auto) 1.1 TH/MM3 (0-0.9) Urine Occult Blood LARGE (NEG) Urine Leukocyte Esterase TRACE (NEG) Urine RBC 42 /hpf (0-3) Urine Mucus FEW /lpf (OCC) Blood Urea Nitrogen 19 MG/DL (7-18) Estimat Glomerular Filtration Rate 61 ML/MIN (>89) Urine Opiates Screen POS (NEG) Urine Barbiturates Screen POS (NEG) Urine Cocaine Screen POS (NEG) Mean Platelet Volume 11.3 FL (7.0-11.0) Imaging Last Impressions Head CT 09/23/17 1721 Signed Impressions: Service Date/Time: Saturday, September 23, 2017 19:49 - CONCLUSION: No significant change has occurred. Khanh Escobar MD PE at Discharge GENERAL: This is a well-nourished, well-developed patient, in no apparent distress. CARDIOVASCULAR: Regular rate and irregular rhythm without murmurs, gallops, or rubs. RESPIRATORY: Clear to auscultation. Breath sounds equal bilaterally. No wheezes , rales, or rhonchi. GASTROINTESTINAL: Abdomen soft, non-tender, nondistended. Normal, active bowel sounds MUSCULOSKELETAL: s/p right BKA NEURO: awake and alert- oriented to person and partly to time and place. Hospital Course 1. A. fib with RVR- now HR better controlled. continue po cardizem Continue home Eliquis recent echo three months ago with EF 60% and mild LVH 2. Hypertension- improved. Restarted home lisinopril continue cardizem Clonidine when necessary Suspect elevated blood pressure secondary to cocaine use 3. history of TIA patient had a recent neurological work-up three months ago and started on eliquis per neurology. DVT prophylaxis with eliquis consult PT. Pt Condition on Discharge: Fair Discharge Disposition: Disch w/ Home Health Serv Discharge Time: <= 30 minutes Discharge Instructions DIET: Follow Instructions for: Heart Healthy Diet Activities you can perform: Regular-No Restrictions Follow up Referrals: PCP Follow-up New Medications: Diltiazem CD 24 HR (Cardizem CD 24 HR) 120 Mg Caper 120 MG PO DAILY for a-fib, #30 CAP 0 Refills Continued Medications: Apixaban (Eliquis) 5 Mg Tab 5 MG PO BID for Blood Clot Prevention, #60 TAB Lisinopril (Lisinopril) 20 Mg Tab 20 MG PO DAILY for Blood Pressure Management, #30 TAB Guillermina Payton MD Sep 25, 2017 08:19
[2017-09-25 12:00] VITALS: BP 157/93; PULSE 86; RESP 17; TEMP 98.1; O2SAT 97
== END 2017-09-25 14:05 | disposition home health service (06) | DRG 310 ==
LOC: NEPE 17:08 → NEDA 21:33 → N04A 23:42
PROVIDERS: ADMIT Internal Medicine; ATTEND Internal Medicine
DX: I48.91 Unspecified atrial fibrillation (principal); Z89.611 Acquired absence of right leg above knee; I10 Essential (primary) hypertension; R41.82 Altered mental status, unspecified; F14.188 Cocaine abuse with other cocaine-induced disorder; Z79.01 Long term (current) use of anticoagulants; Z86.73 Personal history of transient ischemic attack (TIA), and cerebral infarction without residual deficits
CPT/HCPCS: 70450; 80048; 80053; 80307; 81001; 83735; 84443; 85025; 85027; 93005; 96361; 96374; 96375; J0360; J1644; J2250; J7030; P9612

== ENCOUNTER 2017-10-02 11:43 | Inpatient (IN) | payer OTHER ==
[~2017-10-02] VITALS: Ht 167.6 cm; Wt 70.8 kg
[2017-10-02] VITALS (11 sets, daily range): BP systolic 169–213; BP diastolic 97–126; PULSE 98–160; RESP 18–32; TEMP 98.5; O2SAT 92–96
[~2017-10-02 11:43] MED LIST changes: +CARD120C4 PO
[2017-10-02] MEDS ORDERED: ONDANSETRON HCL 4 MG/2 ML VIAL IVP ONE (12:00)
[2017-10-02] MEDS ORDERED: MORPHINE SULFATE 4 MG/ML INJ IV PUSH ONE (12:00)
[2017-10-02] MEDS ORDERED: SODIUM CHLORIDE 0.9% FLUSH 10 ML FLUSH IV FLUSH PRN ×2 (12:00→16:00)
--- NOTE | 2017-10-02 12:03 | PD ---
HPI Chief Complaint: Abdominal Pain Time Seen by Provider: 11:57 Travel History International Travel<30 days: No Contact w/Intl Traveler<30days: No History of Present Illness HPI Patient is a 77-year-old male presenting from home via EMS with complaint of pain all over initially. Patient then localizes pain to his abdomen, he states that going on for 2 days. He denies any bowel changes, nausea, vomiting, fevers. Patient states he cannot lay flat due to the pain. EMS states that patient needed to urinate en route and can only produce a small amount of urine. Patient denies any fever, chills, chest pain or shortness of breath. Patient is afebrile, is tachycardic with a rate in the 110-115 currently. Patient is a history of ID and hypertension. He denies any allergies. [facility] primary [facility] 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) Social History Alcohol Use: No Tobacco Use: No Substance Use: No (denies drugs lab show s positive) Allergies-Medications (Allergen,Severity, Reaction): Coded Allergies: No Known Allergies (Unverified Allergy, Unknown, 10/02/17) PER PATIENT AND SON Reported Meds & Prescriptions Reported Meds & Active Scripts Active Cardizem CD 24 HR (Diltiazem CD 24 HR) 120 Mg Caper 120 Mg PO DAILY Eliquis (Apixaban) 5 Mg Tab 5 Mg PO BID Lisinopril 20 Mg Tab 20 Mg PO DAILY Review of Systems Except as stated in HPI: all other systems reviewed are Neg General / Constitutional: No: Fever, Chills HENT: No: Headaches Cardiovascular: Positive: Tachycardia, No: Chest Pain or Discomfort Respiratory: No: Cough, Shortness of Breath Gastrointestinal: Positive: Abdominal Pain, No: Nausea, Vomiting, Diarrhea, Constipation, Changes in Bowel Habits Genitourinary: No: Dysuria Musculoskeletal: Positive: Myalgias, Pain (all over) Neurologic: No: Weakness, Dizziness Physical Exam Narrative GENERAL: Well-developed, well-nourished elderly gentleman. Appears uncomfortable, in no acute distress. SKIN: Warm and dry. HEAD: Atraumatic. Normocephalic. EYES: Pupils equal and round. No scleral icterus. No injection or drainage. ENT: No nasal bleeding or discharge. Mucous membranes pink and moist. NECK: Trachea midline. No JVD. CARDIOVASCULAR: Tachycardic. RESPIRATORY: No accessory muscle use. Coarse breath sounds in bases bilaterally , tachypneic. GASTROINTESTINAL: Abdomen soft, tender to palpation diffusely, more so over suprapubic region, nondistended. Hepatic and splenic margins not palpable. Positive bowel sounds. MUSCULOSKELETAL: Extremities without clubbing, cyanosis, or edema. No obvious deformities. Right BKA NEUROLOGICAL: Awake and alert. No obvious cranial nerve deficits. Motor grossly within normal limits. Five out of 5 muscle strength in the arms and legs. Normal speech. PSYCHIATRIC: Appropriate mood and affect; insight and judgment normal. Data Data Last Documented VS Vital Signs Date Time Temp Pulse Resp B/P (MAP) Pulse Ox O2 Delivery O2 Flow Rate FiO2 10/02/17 14:42 117 22 181/108 (132) 96 Nasal Cannula 2.00 10/02/17 12:01 98.5 Orders Orders Complete Blood Count With Diff (10/02/17 11:55) Comprehensive Metabolic Panel (10/02/17 11:55) Lipase (10/02/17 11:55) Urinalysis - C+S If Indicated (10/02/17 11:55) Ct Abd/Pel W Iv Contrast(Rout) (10/02/17 11:55) Iv Access Insert/Monitor (10/02/17 11:55) Ecg Monitoring (10/02/17 11:55) Oximetry (10/02/17 11:55) NPO (10/02/17 11:55) Morphine Inj (Morphine Inj) (10/02/17 12:00) Ondansetron Inj (Zofran Inj) (10/02/17 12:00) Sodium Chloride 0.9% Flush (Ns Flush) (10/02/17 12:00) Electrocardiogram (10/02/17 11:55) Cath For Specimen (10/02/17 11:55) Chest, Single Ap (10/02/17 ) Drug Screen, Random Urine (10/02/17 12:05) Diltiazem Inj (Cardizem Inj) (10/02/17 12:15) Ct Pulmonary Angiogram (10/02/17 ) Iohexol 350 Inj (Omnipaque 350 Inj) (10/02/17 14:16) Diltiazem Inj (Cardizem Inj) (10/02/17 14:45) B-Type Natriuretic Peptide (10/02/17 15:29) Cefepime Inj (Maxipime Inj) (10/02/17 15:29) Azithromycin Inj (Zithromax Inj) (10/02/17 15:29) Admit Order (Ed Use Only) (10/02/17 15:57) Labs Laboratory Tests Test 10/02/17 12:05 10/02/17 12:25 White Blood Count 18.9 TH/MM3 Red Blood Count 5.01 MIL/MM3 Hemoglobin 13.8 GM/DL Hematocrit 40.8 % Mean Corpuscular Volume 81.5 FL Mean Corpuscular Hemoglobin 27.6 PG Mean Corpuscular Hemoglobin Concent 33.9 % Red Cell Distribution Width 15.7 % Platelet Count 140 TH/MM3 Mean Platelet Volume 10.5 FL Neutrophils (%) (Auto) 90.3 % Lymphocytes (%) (Auto) 3.6 % Monocytes (%) (Auto) 5.9 % Eosinophils (%) (Auto) 0.0 % Basophils (%) (Auto) 0.2 % Neutrophils # (Auto) 17.1 TH/MM3 Lymphocytes # (Auto) 0.7 TH/MM3 Monocytes # (Auto) 1.1 TH/MM3 Eosinophils # (Auto) 0.0 TH/MM3 Basophils # (Auto) 0.0 TH/MM3 CBC Comment DIFF FINAL Differential Comment Blood Urea Nitrogen 14 MG/DL Creatinine 0.93 MG/DL Random Glucose 192 MG/DL Total Protein 7.4 GM/DL Albumin 3.2 GM/DL Calcium Level 8.6 MG/DL Alkaline Phosphatase 95 U/L Aspartate Amino Transf (AST/SGOT) 81 U/L Alanine Aminotransferase (ALT/SGPT) 61 U/L Total Bilirubin 0.8 MG/DL Sodium Level 135 MEQ/L Potassium Level 3.7 MEQ/L Chloride Level 102 MEQ/L Carbon Dioxide Level 23.5 MEQ/L Anion Gap 10 MEQ/L Estimat Glomerular Filtration Rate 79 ML/MIN Lipase 96 U/L Urine Color YELLOW Urine Turbidity CLEAR Urine pH 7.0 Urine Specific Hodges 1.014 Urine Protein TRACE mg/dL Urine Glucose (UA) 70 mg/dL Urine Ketones NEG mg/dL Urine Occult Blood SMALL Urine Nitrite NEG Urine Bilirubin NEG Urine Urobilinogen LESS THAN 2.0 MG/DL Urine Leukocyte Esterase SMALL Urine RBC 2 /hpf Urine WBC 7 /hpf Urine Bacteria OCC /hpf Microscopic Urinalysis Comment CULT NOT INDICATED Urine Opiates Screen NEG Urine Barbiturates Screen NEG Urine Amphetamines Screen NEG Urine Benzodiazepines Screen NEG Urine Cocaine Screen NEG Urine Cannabinoids Screen NEG MDM Medical Decision Making Medical Screen Exam Complete: Yes Emergency Medical Condition: Yes Medical Record Reviewed: Yes Interpretation(s) Vital Signs Date Time Temp Pulse Resp B/P (MAP) Pulse Ox O2 Delivery O2 Flow Rate FiO2 10/02/17 12:32 98 24 171/101 (124) 95 Nasal Cannula 2.00 10/02/17 12:01 115 26 10/02/17 12:01 98.5 160 28 213/113 (146) 92 Room Air Differential Diagnosis Metabolic abnormality versus obstruction versus colitis versus UTI versus bronchitis versus pneumonia versus gastritis versus other Narrative Course Patient is a 77-year-old male that presented to the emergency for evaluation of generalized pain, localized pain over his abdomen. Patient is tachycardic on arrival, initial EKG shows atrial fibrillation with rapid ventricular response with a rate of 119. BP is elevated on arrival. Patient has a history of atrial fibrillation. He reports compliance with all medications. Patient denies any illicit drug use but has a urine drug screen that was positive will one week ago for cocaine, barbiturates, opiates. Initial EKG shows atrial fibrillation with rapid ventricular response, rate is 119. Cardizem 20 mg IV 1 dose ordered. Chest x-ray was read by the radiologist shows scattered subsegmental airspace disease in the lungs, especially the bases. Differential would include bronchopneumonia and aspiration. CT scan abdomen and pelvis as well as pulmonary angiogram ordered and pending. Patient was tachypneic and short of breath on arrival. Differential would include pulmonary embolism. After initial dose of Cardizem patient's heart rate is in the upper 90s. Patient was reassessed and is resting comfortably. Patient's heart rate increased despite Cardizem bolus. Patient was placed on Cardizem drip. CT of the abdomen and pelvis was read by the radiologist shows no acute abnormality, there is colonic diverticulosis noted, degenerative lumbar spine, small bilateral inguinal hernias containing fat. CT pulmonary angiogram is negative for pulmonary emboli. Urine drug screen is negative. CBC with a white count of 18.9 with left shift Chemistry reviewed and is unremarkable Urinalysis is not indicative of urinary tract infection. Chest x-ray shows scattered subsegmental airspace disease the lungs especially at the bases. Differential includes bronchopneumonia and aspiration. Antibiotics ordered empirically him a BNP added onto labs and is pending. Discussed with Dr. Emmanuel who accepted admit. Admit ordered placed. HR is currently in the mid 90's and patient is resting comfortably. [facility] paged for admission. Sepsis Criteria SIRS Criteria (2 or more): Heart rate over 90, WBC > 38075, < 4000 or > 10% bands Sepsis Criteria (SIRS+source): Infect source susp/known Diagnosis Primary Impression: Atrial fibrillation with RVR Additional Impression: Pneumonia Qualified Codes: J18.9 - Pneumonia, unspecified organism Admitting Information Admitting Physician Requests: Admit Condition: Stable Stef,Annia Knight RHEOLOGIST Oct 02, 2017 12:03
[2017-10-02] MEDS ORDERED: DILTIAZEM HCL 25 MG/5 ML VIAL IV ONE (12:15)
[2017-10-02 12:22] LABS: AUTOMATED NEUTROPHIL # 17.1 TH/MM3 (1.8-7.7); BASOPHIL % 0.2 % (0.0-2.0); HEMATOCRIT 40.8 % (39.0-51.0); HEMO FLAGS DIFF FINAL; LYMPH % 3.6 % (9.0-44.0); LYMPHOCYTE # 0.7 TH/MM3 (1.0-4.8); MEAN CELL VOLUME 81.5 FL (80.0-100.0); MEAN CORPUSCULAR HEMOGLOBIN 27.6 PG (27.0-34.0); MEAN CORPUSCULAR HGB CONC 33.9 % (32.0-36.0); MONO % 5.9 % (0.0-8.0); NEUT % 90.3 % (16.0-70.0); PLATELET COUNT 140 TH/MM3 (150-450); RED BLOOD COUNT 5.01 MIL/MM3 (4.50-5.90); RED CELL DISTRIBUTION WIDTH 15.7 % (11.6-17.2); WHITE BLOOD COUNT 18.9 TH/MM3 (4.0-11.0)
--- NOTE | 2017-10-02 12:27 | RADRPT ---
EXAM DATE/TIME: 10/02/2017 12:14 [facility] COMPARISON: No previous studies available for comparison. INDICATIONS : Body aches short of breath. MEDICAL HISTORY : None. SURGICAL HISTORY : None. ENCOUNTER: Initial ACUITY: 1 day PAIN SCORE: 0/10 LOCATION: Bilateral chest TECH NOTE: PETE FERRARI MR#[id number] :38 Exam date/desc:October 02, 2017CHEST SINGLE AP FINDINGS: There is ill-defined scattered air space disease in the lungs which is nonspecific. Differential diag nosis includes bronchopneumonia at the bases. Probable dependent atelectasis as well. Heart size mild ly enlarged. No significant effusion. CONCLUSION: 1. Scattered subsegmental air space disease in the lungs especially at the bases. Differential diagno sis includes bronchopneumonia and aspiration. Hammad Beltran MD on October 02, 2017 at 12:24 Board Certified Radiologist. This report was verified electronically.
[2017-10-02 12:36] LABS: BACTERIA, URINE OCC /hpf; BLOOD, URINE SMALL (NEG); COMMENT (UR) CULT NOT INDICATED; CULTURE IF INDICATED CULT NOT INDICATED; GLUCOSE,URINE 70 mg/dL (NEG); KETONE, URINE NEG (NEG); NITRITE,URINE NEG (NEG); URINE COLOR YELLOW (YELLW/STRAW)
[2017-10-02 12:55] LABS: ALKALINE PHOSPHATASE 95 U/L (45-117); AST (GOT) 81 U/L (15-37); BLOOD UREA NITROGEN 14 MG/DL (7-18); GLOMERULAR FILTRATION RATE 79 ML/MIN (>89)
[2017-10-02 12:56] LABS: ALT (GPT) 61 U/L (12-78); ANION GAP 10 MEQ/L (5-15); BICARBONATE 23.5 MEQ/L (21.0-32.0); CHLORIDE 102 MEQ/L (98-107); POTASSIUM 3.7 MEQ/L (3.5-5.1); SODIUM (NA) 135 MEQ/L (136-145); TOTAL BILIRUBIN ADULT 0.8 MG/DL (0.2-1.0)
[2017-10-02] MEDS ORDERED: IOHEXOL 350 MG/ML 10 ML VIAL (for RAD DIAG) IVCONTRAST ONE (14:16)
--- NOTE | 2017-10-02 14:28 | RADRPT ---
EXAM DATE/TIME: 10/02/2017 13:41 [facility] COMPARISON: No previous studies available for comparison. INDICATIONS : Shortness of breath and pain all over IV CONTRAST: 75 cc Omnipaque 350 (iohexol) IV ; Cumulative dose for multiple exams. RADIATION DOSE: 13.05 CTDIvol (mGy) MEDICAL HISTORY : Cerebrovascular disease. Hypertension. A-fib SURGICAL HISTORY : None. ENCOUNTER: Initial ACUITY: 1 day PAIN SCALE: 7/10 LOCATION: chest TECHNIQUE: Volumetric scanning of the chest was performed using a pulmonary embolism protocol MIP images were re constructed. Using automated exposure control and adjustment of the mA and/or kV according to patien t size, radiation dose was kept as low as reasonably achievable to obtain optimal diagnostic quality images. DICOM format image data is available electronically for review and comparison. Follow-up recommendations for detected pulmonary nodules are based at a minimum on nodule size and pa tient risk factors according to Fleischner Society Guidelines. FINDINGS: Breathing motion degraded. PULMONARY ARTERIES: No filling defects are seen in the pulmonary arteries through the segmental level. LUNGS: There is no consolidation or pneumothorax . No concerning pulmonary nodule is visualized. PLEURAE: There is no pleural thickening or pleural effusion. MEDIASTINUM: Coronary artery atherosclerotic calcifications. Aorta and pulmonary arteries are normal in caliber. S mall anterior mediastinal lymph nodes without adenopathy. No pericardial effusion. Heart is normal in size. MUSCULOSKELETAL: Within normal limits for patient age. MISCELLANEOUS: See the CT of the abdomen and pelvis reported separately. CONCLUSION: 1. Study is breathing motion degraded. 2. No pulmonary emboli. 3. Coronary artery atherosclerotic calcifications. Hunter Carreon Jr., MD on October 02, 2017 at 14:22 Board Certified Radiologist. This report was verified electronically.
[2017-10-02] MEDS ORDERED: DILTIAZEM INJ 125 MG in SODIUM CHLORIDE 0.9% INJ 100 ML IV PRN (14:45)
--- NOTE | 2017-10-02 15:13 | RADRPT ---
EXAM DATE/TIME: 10/02/2017 13:38 [facility] COMPARISON: No previous studies available for comparison. INDICATIONS : Diffuse abdomen pain ,back pain. IV CONTRAST: 75 cc Omnipaque 350 (iohexol) IV ; Cumulative dose for multiple exams. ORAL CONTRAST: No oral contrast ingested. RADIATION DOSE: 12.05 CTDIvol (mGy) MEDICAL HISTORY : Cerebrovascular disease. Cardiovascular disease Hypertension.Afib SURGICAL HISTORY : None. ENCOUNTER: Initial ACUITY: 1 day PAIN SCALE: 7/10 LOCATION: Abdomen TECHNIQUE: Volumetric scanning of the abdomen and pelvis was performed. Using automated exposure control and ad justment of the mA and/or kV according to patient size, radiation dose was kept as low as reasonably achievable to obtain optimal diagnostic quality images. DICOM format image data is available electro nically for review and comparison. FINDINGS: LOWER LUNGS: The visualized lower lungs are clear. Heart is normal in size without pericardial effusion. Coronary artery atherosclerotic calcifications noted. LIVER: Homogeneous density without lesion. There is no dilation of the biliary tree. No calcified gallston es. SPLEEN: Normal size without lesion. PANCREAS: Within normal limits. KIDNEYS: Normal in size and shape. There is no mass, stone or hydronephrosis. Tiny cortical renal cysts on th e right. Areas of cortical scarring involving the upper pole the left kidney. ADRENAL GLANDS: Within normal limits. VASCULAR: There is no aortic aneurysm. BOWEL/MESENTERY: The stomach, small bowel, and colon demonstrate no acute abnormality. There is no free intraperitone al air or fluid. Colonic diverticuli without acute inflammation. ABDOMINAL WALL: Within normal limits. RETROPERITONEUM: There is no lymphadenopathy. BLADDER: A Zimmer balloon is present in the urinary bladder to be decompressed. REPRODUCTIVE: Within normal limits. Calcifications within the prostate gland. INGUINAL: There is no lymphadenopathy. Small bilateral inguinal hernias containing fat. MUSCULOSKELETAL: A degenerative lumbar spine. Old trauma involving the pubis. CONCLUSION: 1. No acute on abnormality. 2. Colonic diverticulosis. 3. Degenerative lumbar spine. 4. Small bilateral inguinal hernias containing fat. Hunter Carreon Jr., MD on October 02, 2017 at 14:59 Board Certified Radiologist. This report was verified electronically.
[2017-10-02] MEDS ORDERED: CEFEPIME INJ 2,000 MG in SODIUM CHLORIDE 0.9% INJ 100 ML IV STA (15:29)
[2017-10-02] MEDS ORDERED: AZITHROMYCIN INJ 500 MG in SODIUM CHLOR 0.9% 250 ML INJ 250 ML IV STA (15:29)
[2017-10-02] MEDS ORDERED: NALOXONE HCL 0.4 MG/ML AMP IV PUSH PRN (16:00)
--- NOTE | 2017-10-02 16:40 | HHI.HP ---
HPI Service [facility] Primary Care Physician Unknown Admission Diagnosis AFIB W/ RVR, PNA Diagnoses: (1) Atrial fibrillation with RVR Diagnosis: Secondary (2) Pneumonia Diagnosis: Principal Chief Complaint: Subjective fevers and palpitations Travel History International Travel<30 Days: No Contact w/Intl Traveler <30 Da: No Traveled to Known Affected Are: No Sepsis Criteria SIRS Criteria (2 or more): Heart rate over 90, RR > 20 or PaCO2 < 32, WBC > 12645, < 4000 or > 10% bands Sepsis Criteria (SIRS+source): Infect source susp/known History of Present Illness Written by Fani Juarez, acting as scribe for Dr. Emmanuel on 10/02/17 at 1630. Mr. Kuo is a relatively poor historian to events leading up to presentation to the ED. Patient states he's been feeling "sick" with complaint of subjective fevers. Positive chest pains and feelings of palpitations and shortness of breath. States he fell down today and yesterday due to "rough terrain". Called the ambulance after falls. TMAX fever of 100. Subjective fevers for a few days. Admits to productive cough, green-colored sputum. Denies any nausea or vomiting. Denies any hematozemia. Denies hematuria. Admits to dysuria. States he lives alone. Continues to independently drive. Denies cocaine or marijuana use, denies any alcohol use, denies any illicit drug use. Denies any thyroid issues. Denies following a centrifuge separator tender for his atrial fibrillation. Admits to COPD, denies use of BIPAP at home. Admits to some abdominal pain. Denies any recent nausea or vomiting. After review of medical records patient was recently admitted on 09/24/17 with a fib RVR. Does have a history of TIA earlier this year, on home eliquis. 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 Reported Medications Active Cardizem CD 24 HR (Diltiazem CD 24 HR) 120 Mg Caper 120 Mg PO DAILY Eliquis (Apixaban) 5 Mg Tab 5 Mg PO BID Lisinopril 20 Mg Tab 20 Mg PO DAILY Allergies: Coded Allergies: No Known Allergies (Unverified Allergy, Unknown, 10/02/17) PER PATIENT AND SON Active Ordered Medications Current Medications Medications (Trade) Dose Ordered Sig/Galina Route Start Time Stop Time Status Last Admin Diltiazem HCl 125 mg/Sodium Chloride 125 ml @ 5 mls/hr TITRATE PRN IV 10/02/17 14:45 10/02/17 16:12 (NS Flush) 2 ml UNSCH PRN IV FLUSH 10/02/17 16:00 (NS Flush) 2 ml BID IV FLUSH 10/02/17 21:00 (Narcan Inj) 0.4 mg UNSCH PRN IV PUSH 10/02/17 16:00 Family History Denies any significant family medical history. Social History Lives alone. Denies any tobacco use. Denies any alcohol use. Denies any illicit drug use. Physical Exam Vital Signs Vital Signs Date Time Temp Pulse Resp B/P (MAP) Pulse Ox O2 Delivery O2 Flow Rate FiO2 10/02/17 16:23 114 20 188/118 (141) 96 Nasal Cannula 2.00 10/02/17 16:12 120 188/118 10/02/17 14:42 117 22 181/108 (132) 96 Nasal Cannula 2.00 10/02/17 12:32 98 24 171/101 (124) 95 Nasal Cannula 2.00 10/02/17 12:29 20 10/02/17 12:05 32 95 Nasal Cannula 2.00 10/02/17 12:01 115 26 10/02/17 12:01 98.5 160 28 213/113 (146) 92 Room Air Physical Exam GENERAL: This is a well-developed patient, dishelved male patient lying in bed on supplemental O2, with apparent shortness of breath. SKIN: No rashes, ecchymoses or lesions. Warm and dry. HEENT: Atraumatic. Normocephalic. Pupils equal round and reactive. Extraocular motions intact. No scleral icterus. No injection or drainage. Nose without bleeding. Throat without erythema, tonsillar hypertrophy or exudate. Uvula midline. Airway patent. NECK: Trachea midline. No JVD. Supple. CARDIOVASCULAR: Irregularly irregular, No murmurs, gallops, or rubs. RESPIRATORY: Diminished breath sounds in lower bases. Breath sounds equal bilaterally. No wheezes, rales, or rhonchi. GASTROINTESTINAL: Abdomen soft, non-tender, nondistended. No guarding. MUSCULOSKELETAL: Extremities without clubbing, cyanosis, or edema. No joint tenderness, effusion, or edema noted. Right BKA noted. NEUROLOGICAL: Awake and alert. Cranial nerves II through XII intact. Motor and sensory grossly within normal limits. Five out of 5 muscle strength in all muscle groups. Laboratory Laboratory Tests Test 10/02/17 12:05 10/02/17 12:25 White Blood Count 18.9 Red Blood Count 5.01 Hemoglobin 13.8 Hematocrit 40.8 Mean Corpuscular Volume 81.5 Mean Corpuscular Hemoglobin 27.6 Mean Corpuscular Hemoglobin Concent 33.9 Red Cell Distribution Width 15.7 Platelet Count 140 Mean Platelet Volume 10.5 Neutrophils (%) (Auto) 90.3 Lymphocytes (%) (Auto) 3.6 Monocytes (%) (Auto) 5.9 Eosinophils (%) (Auto) 0.0 Basophils (%) (Auto) 0.2 Neutrophils # (Auto) 17.1 Lymphocytes # (Auto) 0.7 Monocytes # (Auto) 1.1 Eosinophils # (Auto) 0.0 Basophils # (Auto) 0.0 CBC Comment DIFF FINAL Differential Comment Blood Urea Nitrogen 14 Creatinine 0.93 Random Glucose 192 Total Protein 7.4 Albumin 3.2 Calcium Level 8.6 Alkaline Phosphatase 95 Aspartate Amino Transf (AST/SGOT) 81 Alanine Aminotransferase (ALT/SGPT) 61 Total Bilirubin 0.8 Sodium Level 135 Potassium Level 3.7 Chloride Level 102 Carbon Dioxide Level 23.5 Anion Gap 10 Estimat Glomerular Filtration Rate 79 B-Type Natriuretic Peptide 243 Lipase 96 Urine Color YELLOW Urine Turbidity CLEAR Urine pH 7.0 Urine Specific [place] 1.014 Urine Protein TRACE Urine Glucose (UA) 70 Urine Ketones NEG Urine Occult Blood SMALL Urine Nitrite NEG Urine Bilirubin NEG Urine Urobilinogen LESS THAN 2.0 Urine Leukocyte Esterase SMALL Urine RBC 2 Urine WBC 7 Urine Bacteria OCC Microscopic Urinalysis Comment CULT NOT INDICATED Urine Opiates Screen NEG Urine Barbiturates Screen NEG Urine Amphetamines Screen NEG Urine Benzodiazepines Screen NEG Urine Cocaine Screen NEG Urine Cannabinoids Screen NEG Result Diagram: 10/02/17 1205 10/02/17 1205 Imaging Last Impressions Abdomen/Pelvis CT 10/02/17 1155 Signed Impressions: Service Date/Time: Monday, October 02, 2017 13:38 - CONCLUSION: 1. No acute on abnormality. 2. Colonic diverticulosis. 3. Degenerative lumbar spine. 4. Small bilateral inguinal hernias containing fat. Hunter Carreon Jr., MD Chest X-Ray 10/02/17 0000 Signed Impressions: Service Date/Time: Monday, October 02, 2017 12:14 - CONCLUSION: 1. Scattered subsegmental air space disease in the lungs especially at the bases. Differential diagnosis includes bronchopneumonia and aspiration. Hammad Beltran MD CT Angiography 10/02/17 0000 Signed Impressions: Service Date/Time: Monday, October 02, 2017 13:41 - CONCLUSION: 1. Study is breathing motion degraded. 2. No pulmonary emboli. 3. Coronary artery atherosclerotic calcifications. Hunter Carreon Jr., MD Capmitrai VTE Risk Assessment Caprini VTE Risk Assessment: Mod/High Risk (score >= 2) Caprini Risk Assessment Model Point Value = 1 Point Value = 2 Point Value = 3 Point Value = 5 Age 41-60 Minor surgery BMI > 25 kg/m2 Swollen legs Varicose veins or History of unexplained or recurrent spontaneous Oral contraceptives or hormone replacement Sepsis (< 1 month) Serious lung disease, including pneumonia (< 1 month) Abnormal pulmonary function Acute myocardial infarction Congestive heart failure (< 1 month) History of inflammatory bowel disease Medical patient at bed rest Age 61-74 Arthroscopic surgery Major open surgery (> 45 min) Laparoscopic surgery (> 45 min) Malignancy Confined to bed (> 72 hours) Immobilizing plaster cast Central venous access Age >= 75 History of VTE Family history of VTE Factor V Leiden Prothrombin [id number] Lupus anticoagulant Anticardiolipin antibodies Elevated serum homocysteine Heparin-induced thrombocytopenia Other congenital or acquired thrombophilia Stroke (< 1 month) Elective arthroplasty Hip, pelvis, or leg fracture Acute spinal cord injury (< 1 month) Prophylaxis Regimen Total Risk Factor Score Risk Level Prophylaxis Regimen 0-1 Low Early ambulation 2 Moderate Order ONE of the following: *Sequential Compression Device (SCD) *Heparin 5000 units SQ BID 3-4 Higher Order ONE of the following medications: *Heparin 5000 units SQ TID *Enoxaparin/Lovenox 40 mg SQ daily (WT < 150 kg, CrCl > 30 mL/min) *Enoxaparin/Lovenox 30 mg SQ daily (WT < 150 kg, CrCl > 10-29 mL/min) *Enoxaparin/Lovenox 30 mg SQ BID (WT < 150 kg, CrCl > 30 mL/min) AND/OR *Sequential Compression Device (SCD) 5 or more Highest Order ONE of the following medications: *Heparin 5000 units SQ TID (Preferred with Epidurals) *Enoxaparin/Lovenox 40 mg SQ daily (WT < 150 kg, CrCl > 30 mL/min) *Enoxaparin/Lovenox 30 mg SQ daily (WT < 150 kg, CrCl > 10-29 mL/min) *Enoxaparin/Lovenox 30 mg SQ BID (WT < 150 kg, CrCl > 30 mL/min) AND *Sequential Compression Device (SCD) Assessment and Plan Assessment and Plan Mr. Kuo is a 77-year-old male patient with a known medical history of atrial fibrillation on Eliquis, HTN, and history of TIA who presented to the ED with complaints of subjective fevers, recent falls, palpitations and abdominal pain. Patient is a relatively poor historian regarding events leading up to presentation to the ED. He states that he has been feeling "sick" with associated shortness of breath, subjective fevers and abdominal pain. Does admit to a history of COPD. Denies any past or present tobacco use, denies any alcohol use, denies ever using any cocaine use. Recent hospitalization on with a fib RVR. Atrial fibrillation, acute on chronic - Presented with atrial fibrillation RVR. Currently on monitor, a fib HR 110' s. - On Cardizem PO at home, questionable compliance. Started on Cardizem gtt in the ED. Continue, titrate per protocol. Monitor HR. - Serial EKGs and serial troponins ordered for ruling out purposes. Follow trends closely. - EKG reviewed showing atrial fibrillation RVR with presence of LVH. HR 119. - Recent echo three months ago with EF 60% and mild LVH. - Continue home Eliquis. - Continue close telemetry monitoring. Sepsis with leukocytosis with mild bandemia - WBC 18.9, tachypnea and tachycardia suspect secondary to community-acquired pneumonia History of COPD with acute exacerbation - Lactic acid ordered and pending. Follow. - Chest x-ray reviewed showing scattered subsegmental airspace disease in the lungs, especially the bases. - CT abdomen/pelvis reviewed showing shows no acute abnormality, there is colonic diverticulosis noted, degenerative lumbar spine, small bilateral inguinal hernias containing fat. CTA reviewed which is negative for PE. - UA reviewed and unremarkable for infection, drug screen negative. Blood cultures ordered. Follow. - BNP mildly elevated, 243. Monitor intake and output. - Continue supplemental O2 to keep sats >92%. - CBC and BMP ordered in am, follow. - Azithromycin IV and cefepime given in ED. - Will start on Levaquin IV. - Started on Atrovent nebulizers. - PT and OT eval ordered, appreciate input. Hypertension, chronic: BP significantly elevated. Continue home Lisinopril. Monitor BP trends. Will add clonidine PRN. DVT Prophylaxis: SCDs/Continue home Eliquis. This note was transcribed by susannah [Fani Juarez]. I, Dr. Armida Emmanuel personally performed the history, physical exam, and medical decision making; and confirmed the accuracy of the information in the transcribed note. Authenticated by Dr. Armida Emmanuel on 10/02/17 at [facility] Discussed Condition With patient, ER DEJUAN, nursing staff Physician Certification 2 Midnight Certification Type: Admission for Inpatient Services Order for Inpatient Services The services are ordered in accordance with Medicare regulations or non- Medicare payer requirements, as applicable. In the case of services not specified as inpatient-only, they are appropriately provided as inpatient services in accordance with the 2-midnight benchmark. Estimated LOS (days): 2 2 days is the estimated time the patient will need to remain in the hospital, assuming treatment plan goals are met and no additional complications. Post-Hospital Plan: Not yet determined Problem Qualifiers (1) Pneumonia: Qualified Codes: J18.9 - Pneumonia, unspecified organism Fnai Juarez Oct 02, 2017 16:40 Armida Emmanuel MD Oct 03, 2017 12:01
[2017-10-02] MEDS ORDERED: DILTIAZEM HCL 25 MG/5 ML VIAL IV PRN (18:15)
[2017-10-02 18:48] LABS: CREATINE KINASE 1078 U/L (39-308)
[2017-10-02] MEDS: SODIUM CHLORIDE 0.9% FLUSH 10 ML FLUSH IV FLUSH SCH (19:37)
[2017-10-02] MEDS ORDERED: CLINDAMYCIN 600 MG PREMIX 50 ML IV SCH (21:00)
[2017-10-02] MEDS: RESP: IPRATROPIUM 0.5 MG/2.5 ML NEB NEB SCH ×2 (21:45→23:39)
[2017-10-02] MEDS ORDERED: LORazepam 0.5 MG TAB PO ONE (22:00)
[2017-10-02] MEDS: cloNIDine HCL 0.1 MG TAB PO PRN (22:27)
[2017-10-02] MEDS: APIXABAN 5 MG TABLET PO SCH (22:27)
[2017-10-02] MEDS: LEVOFLOXACIN 750 MG PREMIX INJ 150 ML IV SCH (22:31)
[2017-10-02] MEDS: LISINOPRIL 20 MG TAB PO SCH (22:31)
[2017-10-02] MEDS: CLINDAMYCIN INJ 600 MG in SODIUM CHLORIDE 0.9% INJ 50 ML IV SCH (23:52)
[2017-10-03] VITALS (13 sets, daily range): BP systolic 145–170; BP diastolic 90–106; PULSE 77–98; RESP 16–22; TEMP 97.6–98.5; O2SAT 92–98
[2017-10-03 02:16] LABS: CREATINE KINASE 638 U/L (39-308)
[2017-10-03 02:28] LABS: CKMB 5.2 NG/ML (0.5-3.6)
[2017-10-03] MEDS: CLINDAMYCIN INJ 600 MG in SODIUM CHLORIDE 0.9% INJ 50 ML IV SCH ×2 (03:18→10:48)
[2017-10-03] MEDS: RESP: IPRATROPIUM 0.5 MG/2.5 ML NEB NEB SCH ×5 (04:54→19:26)
[2017-10-03] MEDS: SODIUM CHLORIDE 0.9% FLUSH 10 ML FLUSH IV FLUSH SCH ×2 (08:27→21:00)
[2017-10-03] MEDS: LISINOPRIL 20 MG TAB PO SCH (08:27)
[2017-10-03] MEDS: APIXABAN 5 MG TABLET PO SCH ×2 (08:27→22:33)
--- NOTE | 2017-10-03 11:30 | HHI.PR ---
Subjective Remarks Patient seen in follow up for fall and pneumonia and elevated BP on admission Hx of vascular cognitive impairment and AFib on Eliquis BP better and patient subjectively feels better no new complaints family at bedside, discussed with RN Objective Vitals Vital Signs Date Time Temp Pulse Resp B/P (MAP) Pulse Ox O2 Delivery O2 Flow Rate FiO2 10/03/17 09:00 97 Nasal Cannula 2.00 10/03/17 04:00 98.0 90 20 145/95 (112) 96 10/03/17 00:00 98.5 89 22 157/106 (123) 96 10/02/17 23:42 95 Nasal Cannula 2.00 10/02/17 21:45 96 Nasal Cannula 2.00 10/02/17 20:00 18 10/02/17 19:30 98.5 107 18 169/108 (128) 96 10/02/17 17:45 121 22 182/97 (125) 95 Nasal Cannula 2.00 10/02/17 17:02 120 20 182/97 (125) 96 Nasal Cannula 2.00 10/02/17 16:23 114 20 188/118 (141) 96 Nasal Cannula 2.00 10/02/17 16:12 120 188/118 10/02/17 14:42 117 22 181/108 (132) 96 Nasal Cannula 2.00 10/02/17 12:32 98 24 171/101 (124) 95 Nasal Cannula 2.00 10/02/17 12:29 20 10/02/17 12:05 32 95 Nasal Cannula 2.00 10/02/17 12:01 115 26 10/02/17 12:01 98.5 160 28 213/113 (146) 92 Room Air I/O 10/02/17 10/02/17 10/02/17 10/03/17 10/03/17 10/03/17 07:00 15:00 23:00 07:00 15:00 23:00 Intake Total 240 ml 240 ml Output Total 1000 ml Balance -760 ml 240 ml Intake Oral 240 ml 240 ml Output Urine Total 1000 ml # Voids 1 4 Result Diagram: 10/02/17 1205 10/02/17 1205 Imaging Last Impressions Abdomen/Pelvis CT 10/02/17 1155 Signed Impressions: Service Date/Time: Monday, October 02, 2017 13:38 - CONCLUSION: 1. No acute on abnormality. 2. Colonic diverticulosis. 3. Degenerative lumbar spine. 4. Small bilateral inguinal hernias containing fat. Hunter Carreon Jr., MD Chest X-Ray 10/02/17 0000 Signed Impressions: Service Date/Time: Monday, October 02, 2017 12:14 - CONCLUSION: 1. Scattered subsegmental air space disease in the lungs especially at the bases. Differential diagnosis includes bronchopneumonia and aspiration. Hammad Beltran MD CT Angiography 10/02/17 0000 Signed Impressions: Service Date/Time: Monday, October 02, 2017 13:41 - CONCLUSION: 1. Study is breathing motion degraded. 2. No pulmonary emboli. 3. Coronary artery atherosclerotic calcifications. Hunter Carreon Jr., MD Objective Remarks GENERAL: This is a well-nourished, well-developed patient, weak, CARDIOVASCULAR: Regular rate and rhythm without murmurs, gallops, or rubs. RESPIRATORY: Clear to auscultation. Breath sounds equal bilaterally. No wheezes , rales, or rhonchi. GASTROINTESTINAL: Abdomen soft, non-tender, nondistended. Normal active bowel sounds MUSCULOSKELETAL: right BKA, Extremities without clubbing, cyanosis, or edema. NEURO: hard of hearing, but Alert & Oriented x4 to person, place, time, situation. Moves all ext x4 A/P Problem List: (1) Atrial fibrillation with RVR ICD Code: I48.91 - Unspecified atrial fibrillation Status: Acute Plan: controlled on Eliquis and Cardizem (2) Pneumonia ICD Code: J18.9 - Pneumonia, unspecified organism Status: Acute Plan: continue Levaquin/clinda IV for CA vs ASP PNA evidence of sepsis with leukocytosis, and tachycardia follow labs (3) Rhabdomyolysis ICD Code: M62.82 - Rhabdomyolysis Plan: improved with IVF, trend in am likely due to falling (4) Falls frequently ICD Code: R29.6 - Repeated falls Plan: OT/RT eval pending has been on [facility] at previous d/c 09/2017 may need rehab (5) HTN (hypertension) ICD Code: I10 - Essential (primary) hypertension Plan: On lisinopril, titrate to effect if needed resume PO cardizem Assessment and Plan weak, oob with pt//Nursing eval for hhc v snf Discharge Planning pending progress 2-3 days Problem Qualifiers (1) Pneumonia: Qualified Codes: J18.9 - Pneumonia, unspecified organism Marlene Silvestre MD Oct 03, 2017 11:30
[2017-10-03 12:18] LABS: AUTOMATED NEUTROPHIL # 11.6 TH/MM3 (1.8-7.7); BASOPHIL % 0.1 % (0.0-2.0); EOSINOPHIL % 0.1 % (0.0-4.0); HEMATOCRIT 38.3 % (39.0-51.0); HEMO FLAGS DIFF FINAL; LYMPH % 6.1 % (9.0-44.0); LYMPHOCYTE # 0.8 TH/MM3 (1.0-4.8); MEAN CELL VOLUME 82.7 FL (80.0-100.0); MEAN CORPUSCULAR HEMOGLOBIN 27.2 PG (27.0-34.0); MEAN CORPUSCULAR HGB CONC 32.9 % (32.0-36.0); MONO % 5.8 % (0.0-8.0); NEUT % 87.9 % (16.0-70.0); PLATELET COUNT 128 TH/MM3 (150-450); RED BLOOD COUNT 4.63 MIL/MM3 (4.50-5.90); RED CELL DISTRIBUTION WIDTH 15.7 % (11.6-17.2); WHITE BLOOD COUNT 13.2 TH/MM3 (4.0-11.0)
--- NOTE | 2017-10-03 12:25 | MB ---
cc: ZEYNEP CALHOUN MD DATE OF CONSULTATION 10/03/[address] Emmanuel REASON FOR CONSULTATION Patient with pneumonia, fever, atrial fibrillation with rapid ventricular response. HISTORY OF PRESENT ILLNESS This is a 77-year-old white male who presented to the emergency department on 10/02 with abdominal pain. The patient reportedly complained of pain all over and then pain was localized to the abdomen. He reportedly was having difficulty laying flat because of the pain. The patient was noted to be tachycardic initially and then noted to be in atrial fibrillation. His heart rate was 117 when he presented. White blood cell count was elevated at 18.9. His heart rate subsequently went up to 160 and blood pressure also increased to 213/113. A chest x-ray was performed and was read as scattered subsegmental airspace disease at the lung bases with a differential diagnosis including bronchopneumonia and aspiration. The patient currently is very very tired. He appears extremely lethargic. He tells me that he has been having problems with severe fatigue for about two weeks to the point where he cannot get up and do anything. He denies pain in the joints or muscles. Denies fevers or chills or sputum production or cough. Blood cultures taken on admission have no growth in one day. Urinalysis showed seven white cells. A urine culture was not performed. The CT scan of the abdomen and pelvis showed no acute abnormality. The patient has been afebrile since admission. The patient reports that he has had weight loss but cannot quantitate how much weight he has lost. He denies any exposure to sick persons or any persons with tuberculosis. He also denies night sweats. The patient was recently admitted to the hospital on September 23 and was discharged on September 25. At that time, he presented with altered mental status and atrial fibrillation with rapid ventricular response. During the hospitalization, the patient was afebrile and the white blood cell count was normal. PAST MEDICAL HISTORY 1. Atrial fibrillation 2. Congestive heart failure 3. COPD 4. Hypertension 5. Depression 6. History of TIA 7. History of GI bleed 8. Appendectomy 9. Right [id number] amputation secondary to trauma approximately 30 years ago ALLERGIES NO KNOWN DRUG ALLERGIES. MEDICATIONS 1. Clindamycin 2. Levaquin 3. Cardizem 4. Eliquis 5. Atrovent nebulizer 6. Prinivil SOCIAL HISTORY The patient denies tobacco or alcohol use. Denies illicit drugs. FAMILY HISTORY Noncontributory REVIEW OF SYSTEMS GENERAL: The patient denies fever or chills. Reports severe fatigue. HEAD, EARS, EYES, NOSE AND THROAT: Denies visual blurring or diplopia. Denies nasal bleeding or discharge. Denies any difficulty swallowing. NECK: Denies neck pain or swelling. CARDIOVASCULAR: Denies chest pain. RESPIRATORY: Denies cough or shortness of breath. GASTROINTESTINAL: Positive for constipation and abdominal pain. Denies diarrhea. GENITOURINARY: Denies urgency, frequency or dysuria. HEMATOPOIETIC: Denies easy bruising or bleeding. MUSCULOSKELETAL: Denies muscle or joint aches or pains. ENDOCRINE: Denies NEUROLOGIC: Denies problems with coordination or dizziness. PSYCHIATRIC: Denies depression or mood changes. PHYSICAL EXAMINATION This is a well-developed male in no acute distress. He is awake and alert but very lethargic. VITAL SIGNS: Temperature 98 degrees, BP 145/95, respirations 20, heart rate 90. HEENT: Head is atraumatic. Extraocular movements grossly intact, pupils reactive to light. No icterus. Oropharynx moist mucosa. No visible lesions. No thrush. NECK: Supple without adenopathy. LUNGS: Decreased breath sounds bilaterally. HEART: Irregular S1-S2. No audible murmur. ABDOMEN: Bowel sounds present, but diminished, soft. No tenderness appreciated. RECTAL: Not performed. EXTREMITIES: The right [id number] stump appears intact. The extremities have no clubbing, cyanosis or edema. SKIN: No rash. NEUROLOGIC: No gross focal findings. PSYCH: The patient is calm and cooperative. LABORATORY DATA WBC 18.9, 90% neutrophils, platelet 140, hemoglobin 13.8. BUN 14, creatinine 0.93, estimated GFR 79, AST 81, ALT 61, alk phos 95. IMPRESSION 1. Pneumonia based on abnormal chest x-ray in patient. Patient with elevated white blood cell count. He denies sputum production. Possible atypical pneumonia. Possible aspiration. 2. Leukocytosis secondary to pneumonia. 3. Atrial fibrillation. RECOMMENDATIONS 1. Discontinue clindamycin. 2. Continue Levaquin 3. Obtain urine culture 4. Obtain mycoplasma serology 5. Obtain Legionella antigen in the urine. 6. RICHA and rheumatoid factor. 7. Monitor the patient's clinical response and monitor the white blood cell count. Thank you for this consultation. The patient's progress will be followed and further recommendations will be given upon followup if necessary. Zeynep Calhoun MD FD/JACQUELINE /11:42 AM /12:07 PM
[2017-10-03] MEDS: DILTIAZEM-CD 120 MG CAP ER PO SCH (12:40)
[2017-10-03 12:49] LABS: BICARBONATE 23.6 MEQ/L (21.0-32.0); POTASSIUM 3.7 MEQ/L (3.5-5.1)
[2017-10-03 13:03] LABS: RHEUMATOID FACTOR TRIGGER LESS THAN 10.0 IU/ML (0.0-14.9)
--- NOTE | 2017-10-03 14:10 | EKG ---
Date Performed: 10/03/2017 Time Performed: 00:45:22 PTAGE: 77 years EKG: Atrial fibrillation Abnormal ECG PREVIOUS TRACING : 10/02/2017 17.59 Compared to prior tracing no significant change DOCTOR: Tj Galeano Interpretating Date/Time 10/03/2017 14:05:06
--- NOTE | 2017-10-03 14:19 | EKG ---
Date Performed: 10/02/2017 Time Performed: 17:59:28 PTAGE: 77 years EKG: ATRIAL FIBRILLATION WITH RAPID VENTRICULAR RESPONSE VOLTAGE CRITERIA FOR LVH NONSPECIFIC ST & T-WAVE ABNORMALITY ABNORMAL ECG PREVIOUS TRACING : 10/02/2017 12.02 Compared to prior tracing no significant change DOCTOR: Tj Galeano Interpretating Date/Time 10/03/2017 14:13:49
--- NOTE | 2017-10-03 14:32 | EKG ---
Date Performed: 10/02/2017 Time Performed: 12:02:15 PTAGE: 77 years EKG: ATRIAL FIBRILLATION WITH RAPID VENTRICULAR RESPONSE VOLTAGE CRITERIA FOR LVH NONSPECIFIC ST & T-WAVE ABNORMALITY ABNORMAL ECG PREVIOUS TRACING : 09/23/2017 19.28 Compared to prior tracing no significant change DOCTOR: Tj Galeano Interpretating Date/Time 10/03/2017 14:25:15
[2017-10-03] MEDS: ACETAMINOPHEN/CODEINE 300 MG/30 MG TAB PO PRN (16:52)
[2017-10-03] MEDS: LEVOFLOXACIN 750 MG PREMIX INJ 150 ML IV SCH (22:00)
[2017-10-03] MEDS: cloNIDine HCL 0.1 MG TAB PO PRN (22:33)
[2017-10-04] VITALS (10 sets, daily range): BP systolic 130–178; BP diastolic 82–104; PULSE 75–102; RESP 16–20; TEMP 97.1–98.9; O2SAT 92–99
[2017-10-04] MEDS: RESP: IPRATROPIUM 0.5 MG/2.5 ML NEB NEB SCH ×7 (00:31→23:40)
[2017-10-04] MEDS: ACETAMINOPHEN/CODEINE 300 MG/30 MG TAB PO PRN ×3 (02:44→16:01)
[2017-10-04] MEDS: DILTIAZEM-CD 120 MG CAP ER PO SCH (09:12)
[2017-10-04] MEDS: APIXABAN 5 MG TABLET PO SCH ×2 (09:13→20:16)
[2017-10-04] MEDS: LISINOPRIL 20 MG TAB PO SCH (09:13)
[2017-10-04] MEDS: SODIUM CHLORIDE 0.9% FLUSH 10 ML FLUSH IV FLUSH SCH ×2 (09:25→20:17)
[2017-10-04 10:46] LABS: HEMATOCRIT 38.3 % (39.0-51.0); MEAN CELL VOLUME 81.7 FL (80.0-100.0); MEAN CORPUSCULAR HGB CONC 33.1 % (32.0-36.0); PLATELET COUNT 170 TH/MM3 (150-450); RED BLOOD COUNT 4.69 MIL/MM3 (4.50-5.90); RED CELL DISTRIBUTION WIDTH 15.8 % (11.6-17.2); REVIEW FLAG FINAL; WHITE BLOOD COUNT 11.3 TH/MM3 (4.0-11.0)
[2017-10-04 11:18] LABS: BICARBONATE 25.3 MEQ/L (21.0-32.0); POTASSIUM 3.8 MEQ/L (3.5-5.1)
--- NOTE | 2017-10-04 14:54 | HHI.IDPN ---
Note Infectious Disease Note Patient feels better. Notes a little soreness in his throat. Afebrile. Feels less SOB. Still very tired. PAST MEDICAL HISTORY 1. Atrial fibrillation 2. Congestive heart failure 3. COPD 4. Hypertension 5. Depression 6. History of TIA 7. History of GI bleed 8. Appendectomy 9. 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 ANTIBIOTICS: Levaquin SOCIAL HISTORY The patient denies tobacco or alcohol use. Denies illicit drugs. FAMILY HISTORY Noncontributory OBJECTIVE: Vital Signs Date Time Temp Pulse Resp B/P (MAP) Pulse Ox O2 Delivery O2 Flow Rate FiO2 10/04/17 12:14 Nasal Cannula 2.00 10/04/17 12:05 97.4 102 20 130/82 (98) 97 10/04/17 10:36 93 10/04/17 09:10 Nasal Cannula 2.00 10/04/17 08:30 170/90 (116) 10/04/17 08:01 97.1 86 20 164/104 (124) 99 10/04/17 07:47 96 Nasal Cannula 3.00 10/04/17 04:00 98.9 101 16 162/98 (119) 97 10/03/17 22:39 Nasal Cannula 2.00 10/03/17 20:00 97.6 89 16 170/101 (124) 95 10/03/17 19:26 92 Nasal Cannula 3.00 10/03/17 18:30 98.5 77 20 148/90 (109) 98 10/03/17 18:30 78 10/03/17 18:30 77 148/90 10/03/17 17:00 82 10/03/17 16:00 90 Laboratory Tests Test 10/03/17 11:46 10/04/17 10:24 White Blood Count 13.2 TH/MM3 11.3 TH/MM3 Red Blood Count 4.63 MIL/MM3 4.69 MIL/MM3 Hemoglobin 12.6 GM/DL 12.7 GM/DL Hematocrit 38.3 % 38.3 % Mean Corpuscular Volume 82.7 FL 81.7 FL Mean Corpuscular Hemoglobin 27.2 PG 27.0 PG Mean Corpuscular Hemoglobin Concent 32.9 % 33.1 % Red Cell Distribution Width 15.7 % 15.8 % Platelet Count 128 TH/MM3 170 TH/MM3 Mean Platelet Volume 10.5 FL 10.3 FL Neutrophils (%) (Auto) 87.9 % Lymphocytes (%) (Auto) 6.1 % Monocytes (%) (Auto) 5.8 % Eosinophils (%) (Auto) 0.1 % Basophils (%) (Auto) 0.1 % Neutrophils # (Auto) 11.6 TH/MM3 Lymphocytes # (Auto) 0.8 TH/MM3 Monocytes # (Auto) 0.8 TH/MM3 Eosinophils # (Auto) 0.0 TH/MM3 Basophils # (Auto) 0.0 TH/MM3 CBC Comment DIFF FINAL Differential Comment Laboratory Tests Test 10/02/17 18:00 10/03/17 01:06 10/03/17 11:46 10/04/17 10:24 Lactic Acid Level 1.2 mmol/L Total Creatine Kinase 1078 U/L 638 U/L 107 U/L Creatine Kinase MB 9.0 NG/ML 5.2 NG/ML Creatine Kinase MB % 0.8 % 0.8 % Troponin I LESS THAN 0.02 NG/ML LESS THAN 0.02 NG/ML Blood Urea Nitrogen 15 MG/DL 18 MG/DL Creatinine 0.88 MG/DL 0.81 MG/DL Random Glucose 160 MG/DL 176 MG/DL Calcium Level 8.4 MG/DL 8.9 MG/DL Sodium Level 136 MEQ/L 136 MEQ/L Potassium Level 3.7 MEQ/L 3.8 MEQ/L Chloride Level 101 MEQ/L 103 MEQ/L Carbon Dioxide Level 23.6 MEQ/L 25.3 MEQ/L Anion Gap 11 MEQ/L 8 MEQ/L Estimat Glomerular Filtration Rate 84 ML/MIN 92 ML/MIN Microbiology Date/Time Source Procedure Growth Status 10/02/17 18:00 Blood Peripheral Aerobic Blood Culture - Preliminary NO GROWTH IN 2 DAYS Resulted 10/02/17 18:00 Blood Peripheral Anaerobic Blood Culture - Preliminary NO GROWTH IN 2 DAYS Resulted 10/02/17 17:55 Blood Peripheral Aerobic Blood Culture - Preliminary NO GROWTH IN 2 DAYS Resulted 10/02/17 17:55 Blood Peripheral Anaerobic Blood Culture - Preliminary NO GROWTH IN 2 DAYS Resulted 10/03/17 12:10 Urine Clean Catch Legionella Antigen - Final PRESUMPTIVE NEGATIVE FOR LEGIONELLA P... Complete 10/03/17 12:10 Urine Clean Catch Urine Culture - Preliminary NO GROWTH IN 24 HOURS. Resulted IMAGING: Abdomen/Pelvis CT 11/13/17 1155 Signed Impressions: Service Date/Time: Monday, October 02, 2017 13:38 - CONCLUSION: 1. No acute on abnormality. 2. Colonic diverticulosis. 3. Degenerative lumbar spine. 4. Small bilateral inguinal hernias containing fat. Hunetr Carreon Jr., MD Chest X-Ray 10/02/17 0000 Signed Impressions: Service Date/Time: Monday, October 02, 2017 12:14 - CONCLUSION: 1. Scattered subsegmental air space disease in the lungs especially at the bases. Differential diagnosis includes bronchopneumonia and aspiration. Hammad Beltran MD CT Angiography 10/02/17 0000 Signed Impressions: Service Date/Time: Monday, October 02, 2017 13:41 - CONCLUSION: 1. Study is breathing motion degraded. 2. No pulmonary emboli. 3. Coronary artery atherosclerotic calcifications. Hunter Carreon Jr., MD PHYSICAL EXAMINATION GENERAL: No acute distress. More alert. HEENT: Head is atraumatic. Extraocular movements grossly intact, pupils reactive to light. No icterus. Oropharynx moist mucosa. No visible lesions. No thrush. NECK: Supple without adenopathy. LUNGS: Decreased breath sounds. HEART: Irregular S1-S2. No audible murmur. ABDOMEN: Obese, soft. No tenderness EXTREMITIES: The right stfgq-ymk-gebf stump intact. The extremities have no clubbing, cyanosis or edema. SKIN: No rash. NEUROLOGIC: No gross focal findings. PSYCH: Calm and cooperative. IMPRESSION 1. Pneumonia Possible atypical pneumonia. Possible aspiration. 2. Leukocytosis secondary to pneumonia. WBC lower. 3. Atrial fibrillation. RECOMMENDATIONS 1. Continue Levaquin 2. Follow mycoplasma serology 3. Monitor the patient's clinical response and monitor the white blood cell count. Seun Gamez MD Oct 04, 2017 14:54
[2017-10-04] MEDS ORDERED: NAPROXEN 500 MG TAB PO ONE (17:15)
[2017-10-04] MEDS ORDERED: ACETAMINOPHEN/HYDROcodone 325 MG/5 MG TAB PO PRN (17:15)
--- NOTE | 2017-10-04 17:22 | HHI.PR ---
Subjective Remarks Complaints of pain today. She remains oxygen dependent. Not yet to functional baseline. No other complaints. Objective Vital Signs Date Time Temp Pulse Resp B/P (MAP) Pulse Ox O2 Delivery O2 Flow Rate FiO2 10/04/17 16:24 98.3 75 19 138/89 (105) 95 10/04/17 16:02 Nasal Cannula 3.00 10/04/17 12:14 Nasal Cannula 2.00 10/04/17 12:05 97.4 102 20 130/82 (98) 97 10/04/17 10:36 93 10/04/17 09:10 Nasal Cannula 2.00 10/04/17 08:30 170/90 (116) 10/04/17 08:01 97.1 86 20 164/104 (124) 99 10/04/17 07:47 96 Nasal Cannula 3.00 10/04/17 04:00 98.9 101 16 162/98 (119) 97 10/03/17 22:39 Nasal Cannula 2.00 10/03/17 20:00 97.6 89 16 170/101 (124) 95 10/03/17 19:26 92 Nasal Cannula 3.00 10/03/17 18:30 98.5 77 20 148/90 (109) 98 10/03/17 18:30 78 10/03/17 18:30 77 148/90 I/O 10/03/17 10/03/17 10/03/17 10/04/17 10/04/17 10/04/17 07:00 15:00 23:00 07:00 15:00 23:00 Intake Total 240 ml 50 ml 632 ml Output Total 250 ml Balance 240 ml 50 ml 382 ml Intake Oral 240 ml 560 ml IV Total 50 ml 72 ml Output Urine Total 250 ml # Voids 4 # Bowel Movements 0 Result Diagram: 10/04/17 1024 10/04/17 1024 Objective Remarks GENERAL: NAD, A&Ox3 HEAD: Normocephalic. NECK: Supple, trachea midline. No lymphadenopathy. EYES: No scleral icterus. No injection or drainage. CARDIOVASCULAR: Regular rate and rhythm without murmurs, gallops, or rubs. RESPIRATORY: Breath sounds equal bilaterally. No accessory muscle use. GASTROINTESTINAL: Abdomen soft, non-tender, nondistended. MUSCULOSKELETAL: No cyanosis, or edema. SKIN: Warm and dry. NEURO: No focal neurological deficitis. A/P Problem List: (1) Atrial fibrillation with RVR ICD Code: I48.91 - Unspecified atrial fibrillation Status: Acute (2) Pneumonia ICD Code: J18.9 - Pneumonia, unspecified organism Status: Acute (3) Rhabdomyolysis ICD Code: M62.82 - Rhabdomyolysis Assessment and Plan Assessment and plan 77-year-old male admitted secondary to A. fib with RVR and pneumonia hypoxia A. fib with RVR Now rate controlled Continue Cardizem Continue Eliquis Follow on telemetry Pneumonia Hypoxia Community-acquired versus aspiration Continue Levaquin Continue clindamycin Continue pain treatment Temporary NSAIDs Rhabdomyolysis Resolved Discontinued IV fluids Frequent falls Generalized weakness Continue physical therapy Hypertension Continue Cardizem Continue lisinopril Currently controlled DVT prophylaxis Patient on Eliquis Problem Qualifiers (1) Pneumonia: Qualified Codes: J18.9 - Pneumonia, unspecified organism Sotero Ross MD Oct 04, 2017 17:22
[2017-10-04] MEDS: ACETAMINOPHEN/HYDROcodone 325 MG/10 MG TAB PO PRN (20:16)
[2017-10-04] MEDS: LEVOFLOXACIN 750 MG PREMIX INJ 150 ML IV SCH (20:17)
[2017-10-05] VITALS (8 sets, daily range): BP systolic 136–162; BP diastolic 82–102; PULSE 63–93; RESP 18–20; TEMP 97.1–98.3; O2SAT 94–98
[2017-10-05] MEDS: ACETAMINOPHEN/HYDROcodone 325 MG/10 MG TAB PO PRN ×6 (00:28→21:48)
[2017-10-05] MEDS: RESP: IPRATROPIUM 0.5 MG/2.5 ML NEB NEB SCH ×6 (03:41→23:20)
[2017-10-05] MEDS: DILTIAZEM-CD 120 MG CAP ER PO SCH (08:56)
[2017-10-05] MEDS: LISINOPRIL 20 MG TAB PO SCH (08:56)
[2017-10-05] MEDS: APIXABAN 5 MG TABLET PO SCH ×2 (08:56→20:38)
[2017-10-05] MEDS: NAPROXEN 250 MG TAB PO SCH ×2 (08:56→20:38)
[2017-10-05] MEDS: SODIUM CHLORIDE 0.9% FLUSH 10 ML FLUSH IV FLUSH SCH ×2 (09:00→20:39)
[2017-10-05] MEDS ORDERED: LISINOPRIL 20 MG TAB PO ONE (09:30)
[2017-10-05] MEDS: AZITHROMYCIN INJ 500 MG in SODIUM CHLOR 0.9% 250 ML INJ 250 ML IV SCH (10:33)
[2017-10-05 11:30] LABS: AUTOMATED NEUTROPHIL # 8.7 TH/MM3 (1.8-7.7); BASOPHIL % 0.2 % (0.0-2.0); EOSINOPHIL # 0.1 TH/MM3 (0-0.4); EOSINOPHIL % 0.9 % (0.0-4.0); HEMATOCRIT 40.6 % (39.0-51.0); HEMO FLAGS DIFF FINAL; LYMPH % 12.2 % (9.0-44.0); LYMPHOCYTE # 1.3 TH/MM3 (1.0-4.8); MEAN CELL VOLUME 82.6 FL (80.0-100.0); MEAN CORPUSCULAR HEMOGLOBIN 27.7 PG (27.0-34.0); MEAN CORPUSCULAR HGB CONC 33.6 % (32.0-36.0); MONO % 6.2 % (0.0-8.0); NEUT % 80.5 % (16.0-70.0); PLATELET COUNT 198 TH/MM3 (150-450); RED BLOOD COUNT 4.92 MIL/MM3 (4.50-5.90); RED CELL DISTRIBUTION WIDTH 15.8 % (11.6-17.2); WHITE BLOOD COUNT 10.8 TH/MM3 (4.0-11.0)
[2017-10-05 11:45] LABS: ANION GAP 9 MEQ/L (5-15); AST (GOT) 49 U/L (15-37); BICARBONATE 27.5 MEQ/L (21.0-32.0); BLOOD UREA NITROGEN 21 MG/DL (7-18); CHLORIDE 102 MEQ/L (98-107); GLOMERULAR FILTRATION RATE 86 ML/MIN (>89); POTASSIUM 3.9 MEQ/L (3.5-5.1); SODIUM (NA) 138 MEQ/L (136-145)
[2017-10-05 11:49] LABS: ALKALINE PHOSPHATASE 92 U/L (45-117); ALT (GPT) 95 U/L (12-78); TOTAL BILIRUBIN ADULT 0.9 MG/DL (0.2-1.0)
--- NOTE | 2017-10-05 12:09 | HHI.PR ---
Subjective Remarks Patient reports breathing and cough, "about the same." endorses palpitations earlier- improved after Cardizem 20 mg given IV Objective Vitals Vital Signs Date Time Temp Pulse Resp B/P (MAP) Pulse Ox O2 Delivery O2 Flow Rate FiO2 10/05/17 11:08 Nasal Cannula 3.00 10/05/17 11:05 Nasal Cannula 2.00 10/05/17 09:03 Nasal Cannula 2.00 10/05/17 08:01 97.6 85 19 153/102 (119) 98 10/05/17 04:00 98.0 83 18 149/91 (110) 96 10/05/17 00:00 97.8 63 20 148/87 (107) 94 10/04/17 22:03 95 Nasal Cannula 3.00 10/04/17 20:28 Nasal Cannula 3.00 10/04/17 20:19 98.2 84 18 178/98 (124) 92 10/04/17 20:10 83 10/04/17 16:24 98.3 75 19 138/89 (105) 95 10/04/17 16:02 Nasal Cannula 3.00 10/04/17 12:14 Nasal Cannula 2.00 10/04/17 12:05 97.4 102 20 130/82 (98) 97 I/O 10/04/17 10/04/17 10/04/17 10/05/17 10/05/17 10/05/17 07:00 15:00 23:00 07:00 15:00 23:00 Intake Total 600 ml 360 ml Output Total 500 ml 750 ml Balance 100 ml -390 ml Intake Oral 600 ml 360 ml Output Urine Total 500 ml 750 ml # Bowel Movements 1 1 Result Diagram: 10/05/17 1020 10/05/17 1020 Other Results Laboratory Tests Test 10/02/17 12:05 10/02/17 12:25 10/02/17 18:00 10/03/17 01:06 White Blood Count 18.9 TH/MM3 Red Blood Count 5.01 MIL/MM3 Hemoglobin 13.8 GM/DL Hematocrit 40.8 % Mean Corpuscular Volume 81.5 FL Mean Corpuscular Hemoglobin 27.6 PG Mean Corpuscular Hemoglobin Concent 33.9 % Red Cell Distribution Width 15.7 % Platelet Count 140 TH/MM3 Mean Platelet Volume 10.5 FL Neutrophils (%) (Auto) 90.3 % Lymphocytes (%) (Auto) 3.6 % Monocytes (%) (Auto) 5.9 % Eosinophils (%) (Auto) 0.0 % Basophils (%) (Auto) 0.2 % Neutrophils # (Auto) 17.1 TH/MM3 Lymphocytes # (Auto) 0.7 TH/MM3 Monocytes # (Auto) 1.1 TH/MM3 Eosinophils # (Auto) 0.0 TH/MM3 Basophils # (Auto) 0.0 TH/MM3 CBC Comment DIFF FINAL Differential Comment Blood Urea Nitrogen 14 MG/DL Creatinine 0.93 MG/DL Random Glucose 192 MG/DL Total Protein 7.4 GM/DL Albumin 3.2 GM/DL Calcium Level 8.6 MG/DL Alkaline Phosphatase 95 U/L Aspartate Amino Transf (AST/SGOT) 81 U/L Alanine Aminotransferase (ALT/SGPT) 61 U/L Total Bilirubin 0.8 MG/DL Sodium Level 135 MEQ/L Potassium Level 3.7 MEQ/L Chloride Level 102 MEQ/L Carbon Dioxide Level 23.5 MEQ/L Anion Gap 10 MEQ/L Estimat Glomerular Filtration Rate 79 ML/MIN B-Type Natriuretic Peptide 243 PG/ML Lipase 96 U/L Urine Color YELLOW Urine Turbidity CLEAR Urine pH 7.0 Urine Specific [place] 1.014 Urine Protein TRACE mg/dL Urine Glucose (UA) 70 mg/dL Urine Ketones NEG mg/dL Urine Occult Blood SMALL Urine Nitrite NEG Urine Bilirubin NEG Urine Urobilinogen LESS THAN 2.0 MG/DL Urine Leukocyte Esterase SMALL Urine RBC 2 /hpf Urine WBC 7 /hpf Urine Bacteria OCC /hpf Microscopic Urinalysis Comment CULT NOT INDICATED Urine Opiates Screen NEG Urine Barbiturates Screen NEG Urine Amphetamines Screen NEG Urine Benzodiazepines Screen NEG Urine Cocaine Screen NEG Urine Cannabinoids Screen NEG Lactic Acid Level 1.2 mmol/L Total Creatine Kinase 1078 U/L 638 U/L Creatine Kinase MB 9.0 NG/ML 5.2 NG/ML Creatine Kinase MB % 0.8 % 0.8 % Troponin I LESS THAN 0.02 NG/ML LESS THAN 0.02 NG/ML Test 10/03/17 11:46 10/03/17 14:24 10/04/17 10:24 10/05/17 10:20 White Blood Count 13.2 TH/MM3 11.3 TH/MM3 10.8 TH/MM3 Red Blood Count 4.63 MIL/MM3 4.69 MIL/MM3 4.92 MIL/MM3 Hemoglobin 12.6 GM/DL 12.7 GM/DL 13.6 GM/DL Hematocrit 38.3 % 38.3 % 40.6 % Mean Corpuscular Volume 82.7 FL 81.7 FL 82.6 FL Mean Corpuscular Hemoglobin 27.2 PG 27.0 PG 27.7 PG Mean Corpuscular Hemoglobin Concent 32.9 % 33.1 % 33.6 % Red Cell Distribution Width 15.7 % 15.8 % 15.8 % Platelet Count 128 TH/MM3 170 TH/MM3 198 TH/MM3 Mean Platelet Volume 10.5 FL 10.3 FL 10.3 FL Neutrophils (%) (Auto) 87.9 % 80.5 % Lymphocytes (%) (Auto) 6.1 % 12.2 % Monocytes (%) (Auto) 5.8 % 6.2 % Eosinophils (%) (Auto) 0.1 % 0.9 % Basophils (%) (Auto) 0.1 % 0.2 % Neutrophils # (Auto) 11.6 TH/MM3 8.7 TH/MM3 Lymphocytes # (Auto) 0.8 TH/MM3 1.3 TH/MM3 Monocytes # (Auto) 0.8 TH/MM3 0.7 TH/MM3 Eosinophils # (Auto) 0.0 TH/MM3 0.1 TH/MM3 Basophils # (Auto) 0.0 TH/MM3 0.0 TH/MM3 CBC Comment DIFF FINAL DIFF FINAL Differential Comment Blood Urea Nitrogen 15 MG/DL 18 MG/DL 21 MG/DL Creatinine 0.88 MG/DL 0.81 MG/DL 0.86 MG/DL Random Glucose 160 MG/DL 176 MG/DL 137 MG/DL Calcium Level 8.4 MG/DL 8.9 MG/DL 9.3 MG/DL Sodium Level 136 MEQ/L 136 MEQ/L 138 MEQ/L Potassium Level 3.7 MEQ/L 3.8 MEQ/L 3.9 MEQ/L Chloride Level 101 MEQ/L 103 MEQ/L 102 MEQ/L Carbon Dioxide Level 23.6 MEQ/L 25.3 MEQ/L 27.5 MEQ/L Anion Gap 11 MEQ/L 8 MEQ/L 9 MEQ/L Estimat Glomerular Filtration Rate 84 ML/MIN 92 ML/MIN 86 ML/MIN Rheumatoid Factor Screen NEGATIVE Rheumatoid Factor Titer IU/ML Anti-Nuclear Antibody Screen NEG Mycoplasma Pneumoniae Interpretat . Mycoplasma pneumoniae IgG Antibody Positive Mycoplasma pneumoniae IgM Antibody Negative Total Creatine Kinase 107 U/L Total Protein 7.8 GM/DL Albumin 3.1 GM/DL Alkaline Phosphatase 92 U/L Aspartate Amino Transf (AST/SGOT) 49 U/L Alanine Aminotransferase (ALT/SGPT) 95 U/L Total Bilirubin 0.9 MG/DL Imaging Last Impressions Abdomen/Pelvis CT 10/02/17 1155 Signed Impressions: Service Date/Time: Monday, October 02, 2017 13:38 - CONCLUSION: 1. No acute on abnormality. 2. Colonic diverticulosis. 3. Degenerative lumbar spine. 4. Small bilateral inguinal hernias containing fat. Hunter Carreon Jr., MD Chest X-Ray 10/02/17 0000 Signed Impressions: Service Date/Time: Monday, October 02, 2017 12:14 - CONCLUSION: 1. Scattered subsegmental air space disease in the lungs especially at the bases. Differential diagnosis includes bronchopneumonia and aspiration. Hammad Beltran MD CT Angiography 10/02/17 0000 Signed Impressions: Service Date/Time: Monday, October 02, 2017 13:41 - CONCLUSION: 1. Study is breathing motion degraded. 2. No pulmonary emboli. 3. Coronary artery atherosclerotic calcifications. Hunter Carreon Jr., MD Objective Remarks GENERAL: NAD, A&Ox3 HEAD: Normocephalic. NECK: Supple, trachea midline. No lymphadenopathy. EYES: No scleral icterus. No injection or drainage. CARDIOVASCULAR: irregularly irregular RESPIRATORY: Breath sounds equal bilaterally. No accessory muscle use. GASTROINTESTINAL: Abdomen soft, non-tender, nondistended. MUSCULOSKELETAL: No cyanosis, or edema. SKIN: Warm and dry. NEURO: No focal neurological deficits. A/P Problem List: (1) Atrial fibrillation with RVR ICD Code: I48.91 - Unspecified atrial fibrillation Status: Acute (2) Pneumonia ICD Code: J18.9 - Pneumonia, unspecified organism Status: Acute (3) Rhabdomyolysis ICD Code: M62.82 - Rhabdomyolysis (4) Falls frequently ICD Code: R29.6 - Repeated falls (5) HTN (hypertension) ICD Code: I10 - Essential (primary) hypertension Assessment and Plan 77-year-old male admitted secondary to A. fib with RVR and pneumonia hypoxia A. fib with RVR Now rate improved now low 100s after Cardizem 20 mg given IV push (10/05/17) Increase PO cardizem to 240 mg PO daily Continue Eliquis Follow on telemetry Pneumonia, serology positive for Mycoplasma pneumonia IgG Hypoxia Also being followed by Dr. Gamez Community-acquired versus aspiration Continue Levaquin Continue azithromycin Continue pain treatment Temporary NSAIDs Rhabdomyolysis Resolved Discontinued IV fluids Frequent falls Generalized weakness Continue physical therapy Hypertension Continue Cardizem, dose increased due to A Fib RVR Continue lisinopril, dose increased to 40 mg PO daily due to HTN DVT prophylaxis Patient on Eliquis Discussed with patient, nurse and Dr. Ross Problem Qualifiers (1) Pneumonia: Qualified Codes: J18.9 - Pneumonia, unspecified organism Katelin Henriquez Oct 05, 2017 12:09
[2017-10-05] MEDS ORDERED: DILTIAZEM-CD 120 MG CAP ER PO ONE (12:15)
--- NOTE | 2017-10-05 12:22 | HHI.IDPN ---
Note Infectious Disease Note Patient feels better. Seems a little confused. Daughter at bedside. Afebrile. Feels less SOB. Positive IgM mycoplasma. PAST MEDICAL HISTORY 1. Atrial fibrillation 2. Congestive heart failure 3. COPD 4. Hypertension 5. Depression 6. History of TIA 7. History of GI bleed 8. Appendectomy 9. Right bxhes-xxc-funs amputation secondary to trauma approximately 30 years ago ALLERGIES NO KNOWN DRUG ALLERGIES. ANTIBIOTICS: Levaquin Azithromycin. SOCIAL HISTORY The patient denies tobacco or alcohol use. Denies illicit drugs. FAMILY HISTORY Noncontributory OBJECTIVE: Vital Signs Date Time Temp Pulse Resp B/P (MAP) Pulse Ox O2 Delivery O2 Flow Rate FiO2 10/05/17 11:08 Nasal Cannula 3.00 10/05/17 11:05 Nasal Cannula 2.00 10/05/17 09:03 Nasal Cannula 2.00 10/05/17 08:01 97.6 85 19 153/102 (119) 98 10/05/17 04:00 98.0 83 18 149/91 (110) 96 10/05/17 00:00 97.8 63 20 148/87 (107) 94 10/04/17 22:03 95 Nasal Cannula 3.00 10/04/17 20:28 Nasal Cannula 3.00 10/04/17 20:19 98.2 84 18 178/98 (124) 92 10/04/17 20:10 83 10/04/17 16:24 98.3 75 19 138/89 (105) 95 10/04/17 16:02 Nasal Cannula 3.00 Laboratory Tests Test 10/03/17 11:46 10/04/17 10:24 White Blood Count 13.2 TH/MM3 11.3 TH/MM3 Red Blood Count 4.63 MIL/MM3 4.69 MIL/MM3 Hemoglobin 12.6 GM/DL 12.7 GM/DL Hematocrit 38.3 % 38.3 % Mean Corpuscular Volume 82.7 FL 81.7 FL Mean Corpuscular Hemoglobin 27.2 PG 27.0 PG Mean Corpuscular Hemoglobin Concent 32.9 % 33.1 % Red Cell Distribution Width 15.7 % 15.8 % Platelet Count 128 TH/MM3 170 TH/MM3 Mean Platelet Volume 10.5 FL 10.3 FL Neutrophils (%) (Auto) 87.9 % Lymphocytes (%) (Auto) 6.1 % Monocytes (%) (Auto) 5.8 % Eosinophils (%) (Auto) 0.1 % Basophils (%) (Auto) 0.1 % Neutrophils # (Auto) 11.6 TH/MM3 Lymphocytes # (Auto) 0.8 TH/MM3 Monocytes # (Auto) 0.8 TH/MM3 Eosinophils # (Auto) 0.0 TH/MM3 Basophils # (Auto) 0.0 TH/MM3 CBC Comment DIFF FINAL Differential Comment Laboratory Tests Test 10/02/17 18:00 10/03/17 01:06 10/03/17 11:46 10/04/17 10:24 Lactic Acid Level 1.2 mmol/L Total Creatine Kinase 1078 U/L 638 U/L 107 U/L Creatine Kinase MB 9.0 NG/ML 5.2 NG/ML Creatine Kinase MB % 0.8 % 0.8 % Troponin I LESS THAN 0.02 NG/ML LESS THAN 0.02 NG/ML Blood Urea Nitrogen 15 MG/DL 18 MG/DL Creatinine 0.88 MG/DL 0.81 MG/DL Random Glucose 160 MG/DL 176 MG/DL Calcium Level 8.4 MG/DL 8.9 MG/DL Sodium Level 136 MEQ/L 136 MEQ/L Potassium Level 3.7 MEQ/L 3.8 MEQ/L Chloride Level 101 MEQ/L 103 MEQ/L Carbon Dioxide Level 23.6 MEQ/L 25.3 MEQ/L Anion Gap 11 MEQ/L 8 MEQ/L Estimat Glomerular Filtration Rate 84 ML/MIN 92 ML/MIN Microbiology Date/Time Source Procedure Growth Status 10/02/17 18:00 Blood Peripheral Aerobic Blood Culture - Preliminary NO GROWTH IN 2 DAYS Resulted 10/02/17 18:00 Blood Peripheral Anaerobic Blood Culture - Preliminary NO GROWTH IN 2 DAYS Resulted 10/02/17 17:55 Blood Peripheral Aerobic Blood Culture - Preliminary NO GROWTH IN 2 DAYS Resulted 10/02/17 17:55 Blood Peripheral Anaerobic Blood Culture - Preliminary NO GROWTH IN 2 DAYS Resulted 10/03/17 12:10 Urine Clean Catch Legionella Antigen - Final PRESUMPTIVE NEGATIVE FOR LEGIONELLA P... Complete 10/03/17 12:10 Urine Clean Catch Urine Culture - Preliminary NO GROWTH IN 24 HOURS. Resulted IMAGING: Abdomen/Pelvis CT 10/02/17 1155 Signed Impressions: Service Date/Time: Monday, October 02, 2017 13:38 - CONCLUSION: 1. No acute on abnormality. 2. Colonic diverticulosis. 3. Degenerative lumbar spine. 4. Small bilateral inguinal hernias containing fat. Hunter Carreon Jr., MD Chest X-Ray 10/02/17 0000 Signed Impressions: Service Date/Time: Monday, October 02, 2017 12:14 - CONCLUSION: 1. Scattered subsegmental air space disease in the lungs especially at the bases. Differential diagnosis includes bronchopneumonia and aspiration. Hammad Beltran MD CT Angiography 10/02/17 0000 Signed Impressions: Service Date/Time: Monday, October 02, 2017 13:41 - CONCLUSION: 1. Study is breathing motion degraded. 2. No pulmonary emboli. 3. Coronary artery atherosclerotic calcifications. Hunter Carreon Jr., MD PHYSICAL EXAMINATION GENERAL: No acute distress. HEENT: Head is atraumatic. Extraocular movements grossly intact, pupils reactive to light. No icterus. Oropharynx moist mucosa. No visible lesions. NECK: Supple without adenopathy. LUNGS: Decreased breath sounds bilateral. HEART: Irregular S1-S2. No audible murmur. ABDOMEN: Obese, soft. Non tender. EXTREMITIES: The right ixcdr-mjj-xmgu stump intact. The extremities have no clubbing, cyanosis or edema. SKIN: No rash. NEUROLOGIC: No gross focal findings. PSYCH: Calm and cooperative. IMPRESSION 1. Pneumonia Possible atypical pneumonia. Possible aspiration. 2. Leukocytosis secondary to pneumonia. WBC lower. Now normal. 3. Atrial fibrillation. RECOMMENDATIONS 1. Stop Levaquin. 2. Continue Azithromycin. If stable can discharge on PO to complete 5 days. 2. Monitor the patient's clinical response. Seun Gamez MD Oct 05, 2017 12:22
[2017-10-06] VITALS (8 sets, daily range): BP systolic 137–170; BP diastolic 75–89; PULSE 54–106; RESP 18–20; TEMP 97–98.3; O2SAT 92–97
[2017-10-06] MEDS: ACETAMINOPHEN/HYDROcodone 325 MG/10 MG TAB PO PRN ×5 (02:01→23:25)
[2017-10-06] MEDS: RESP: IPRATROPIUM 0.5 MG/2.5 ML NEB NEB SCH ×4 (04:00→19:05)
[2017-10-06] MEDS: SODIUM CHLORIDE 0.9% FLUSH 10 ML FLUSH IV FLUSH SCH ×2 (07:41→20:04)
[2017-10-06] MEDS: APIXABAN 5 MG TABLET PO SCH ×2 (08:39→20:04)
[2017-10-06] MEDS: DILTIAZEM-CD 240 MG CAP ER PO SCH (08:39)
[2017-10-06] MEDS: NAPROXEN 250 MG TAB PO SCH ×2 (08:39→20:03)
[2017-10-06] MEDS: LISINOPRIL 20 MG TAB PO SCH (08:39)
[2017-10-06 08:41] LABS: ALT (GPT) 78 U/L (12-78); ANION GAP 7 MEQ/L (5-15); AST (GOT) 36 U/L (15-37); BICARBONATE 26.7 MEQ/L (21.0-32.0); BLOOD UREA NITROGEN 17 MG/DL (7-18); CHLORIDE 102 MEQ/L (98-107); GLOMERULAR FILTRATION RATE 104 ML/MIN (>89); POTASSIUM 4.3 MEQ/L (3.5-5.1); SODIUM (NA) 136 MEQ/L (136-145)
[2017-10-06 08:44] LABS: ALKALINE PHOSPHATASE 83 U/L (45-117); TOTAL BILIRUBIN ADULT 0.9 MG/DL (0.2-1.0)
[2017-10-06] MEDS: AZITHROMYCIN INJ 500 MG in SODIUM CHLOR 0.9% 250 ML INJ 250 ML IV SCH (09:21)
[2017-10-06 09:52] LABS: BASOPHIL % 0.2 % (0.0-2.0); EOSINOPHIL # 0.1 TH/MM3 (0-0.4); EOSINOPHIL % 1.3 % (0.0-4.0); HEMATOCRIT 37.8 % (39.0-51.0); HEMO FLAGS DIFF FINAL; LYMPH % 12.3 % (9.0-44.0); LYMPHOCYTE # 1.4 TH/MM3 (1.0-4.8); MEAN CELL VOLUME 82.7 FL (80.0-100.0); MEAN CORPUSCULAR HEMOGLOBIN 27.5 PG (27.0-34.0); MEAN CORPUSCULAR HGB CONC 33.3 % (32.0-36.0); MONO % 7.6 % (0.0-8.0); NEUT % 78.6 % (16.0-70.0); PLATELET COUNT 202 TH/MM3 (150-450); RED BLOOD COUNT 4.57 MIL/MM3 (4.50-5.90); RED CELL DISTRIBUTION WIDTH 15.6 % (11.6-17.2); WHITE BLOOD COUNT 11.4 TH/MM3 (4.0-11.0)
[2017-10-06] MEDS ORDERED: AZIT500T2 PO (11:03)
[2017-10-06] MEDS ORDERED: LACTTAB8 PO (11:03)
[2017-10-06] MEDS ORDERED: DILT240C44 PO (11:03)
[2017-10-06] MEDS ORDERED: HYDR-3516 PO (11:03)
[2017-10-06] MEDS ORDERED: LISI-515 PO (11:50)
--- NOTE | 2017-10-06 11:51 | HHI.FF ---
Face to Face Verification Diagnosis: (1) Pneumonia (2) Falls frequently (3) A-fib (4) HTN (hypertension) Physical Therapy Order: Evaluate and Treat, Improve ambulation, Strength and gait training Home Health Nursing Order: Medical education Signs/symptoms of disease process Medication education-adverse effect Nursing assessment with vital signs I have seen patient Chace Kuo on 10/06/17. My clinical findings support the need for the requested home health care services because: Limited ability to care for self High fall risks Limited ability to care for self High risk of falls I certify that my clinical findings support that this patient is homebound because: Unsteady gait balance Unsteady gait/balance Katelin Henriquez Oct 06, 2017 11:51
--- NOTE | 2017-10-06 12:40 | HHI.PR ---
Subjective Remarks Patient confused and agitated- unable to provide proper location or year HR improved SOB improved Objective Vitals Vital Signs Date Time Temp Pulse Resp B/P (MAP) Pulse Ox O2 Delivery O2 Flow Rate FiO2 10/06/17 10:28 Nasal Cannula 2.00 10/06/17 09:41 160/80 (106) 10/06/17 04:00 98.3 85 18 148/89 (108) 97 10/06/17 00:58 97.6 106 18 170/80 (110) 96 10/05/17 20:00 98.3 82 20 162/82 (108) 95 10/05/17 20:00 63 10/05/17 19:45 Nasal Cannula 2.00 10/05/17 19:27 95 10/05/17 16:53 Nasal Cannula 4.00 10/05/17 16:01 97.1 79 19 150/97 (114) 94 10/05/17 15:46 93 I/O 10/05/17 10/05/17 10/05/17 10/06/17 10/06/17 10/06/17 07:00 15:00 23:00 07:00 15:00 23:00 Intake Total 360 ml 600 ml Output Total 750 ml 300 ml 400 ml Balance -390 ml 300 ml -400 ml Intake Oral 360 ml 600 ml Output Urine Total 750 ml 300 ml 400 ml # Bowel Movements 1 Result Diagram: 10/06/17 0730 10/06/17 0730 Other Results Laboratory Tests Test 10/03/17 14:24 10/04/17 10:24 10/05/17 10:20 10/06/17 07:30 Anti-Nuclear Antibody Screen NEG Mycoplasma Pneumoniae Interpretat . Mycoplasma pneumoniae IgG Antibody Positive Mycoplasma pneumoniae IgM Antibody Negative White Blood Count 11.3 TH/MM3 10.8 TH/MM3 11.4 TH/MM3 Red Blood Count 4.69 MIL/MM3 4.92 MIL/MM3 4.57 MIL/MM3 Hemoglobin 12.7 GM/DL 13.6 GM/DL 12.6 GM/DL Hematocrit 38.3 % 40.6 % 37.8 % Mean Corpuscular Volume 81.7 FL 82.6 FL 82.7 FL Mean Corpuscular Hemoglobin 27.0 PG 27.7 PG 27.5 PG Mean Corpuscular Hemoglobin Concent 33.1 % 33.6 % 33.3 % Red Cell Distribution Width 15.8 % 15.8 % 15.6 % Platelet Count 170 TH/MM3 198 TH/MM3 202 TH/MM3 Mean Platelet Volume 10.3 FL 10.3 FL 10.6 FL Blood Urea Nitrogen 18 MG/DL 21 MG/DL 17 MG/DL Creatinine 0.81 MG/DL 0.86 MG/DL 0.73 MG/DL Random Glucose 176 MG/DL 137 MG/DL 87 MG/DL Calcium Level 8.9 MG/DL 9.3 MG/DL 9.1 MG/DL Sodium Level 136 MEQ/L 138 MEQ/L 136 MEQ/L Potassium Level 3.8 MEQ/L 3.9 MEQ/L 4.3 MEQ/L Chloride Level 103 MEQ/L 102 MEQ/L 102 MEQ/L Carbon Dioxide Level 25.3 MEQ/L 27.5 MEQ/L 26.7 MEQ/L Anion Gap 8 MEQ/L 9 MEQ/L 7 MEQ/L Estimat Glomerular Filtration Rate 92 ML/MIN 86 ML/MIN 104 ML/MIN Total Creatine Kinase 107 U/L Neutrophils (%) (Auto) 80.5 % 78.6 % Lymphocytes (%) (Auto) 12.2 % 12.3 % Monocytes (%) (Auto) 6.2 % 7.6 % Eosinophils (%) (Auto) 0.9 % 1.3 % Basophils (%) (Auto) 0.2 % 0.2 % Neutrophils # (Auto) 8.7 TH/MM3 9.0 TH/MM3 Lymphocytes # (Auto) 1.3 TH/MM3 1.4 TH/MM3 Monocytes # (Auto) 0.7 TH/MM3 0.9 TH/MM3 Eosinophils # (Auto) 0.1 TH/MM3 0.1 TH/MM3 Basophils # (Auto) 0.0 TH/MM3 0.0 TH/MM3 CBC Comment DIFF FINAL DIFF FINAL Differential Comment Total Protein 7.8 GM/DL 8.1 GM/DL Albumin 3.1 GM/DL 3.1 GM/DL Alkaline Phosphatase 92 U/L 83 U/L Aspartate Amino Transf (AST/SGOT) 49 U/L 36 U/L Alanine Aminotransferase (ALT/SGPT) 95 U/L 78 U/L Total Bilirubin 0.9 MG/DL 0.9 MG/DL Imaging Last Impressions Abdomen/Pelvis CT 10/02/17 1155 Signed Impressions: Service Date/Time: Monday, October 02, 2017 13:38 - CONCLUSION: 1. No acute on abnormality. 2. Colonic diverticulosis. 3. Degenerative lumbar spine. 4. Small bilateral inguinal hernias containing fat. Hunter Carreon Jr., MD Chest X-Ray 10/02/17 0000 Signed Impressions: Service Date/Time: Monday, October 02, 2017 12:14 - CONCLUSION: 1. Scattered subsegmental air space disease in the lungs especially at the bases. Differential diagnosis includes bronchopneumonia and aspiration. Hammad Beltran MD CT Angiography 10/02/17 0000 Signed Impressions: Service Date/Time: Monday, October 02, 2017 13:41 - CONCLUSION: 1. Study is breathing motion degraded. 2. No pulmonary emboli. 3. Coronary artery atherosclerotic calcifications. Hunter Carreon Jr., MD Objective Remarks GENERAL: awake and alert- confused HEAD: Normocephalic. NECK: Supple, trachea midline. No lymphadenopathy. EYES: No scleral icterus. No injection or drainage. CARDIOVASCULAR: irregularly irregular RESPIRATORY: Breath sounds equal bilaterally. No accessory muscle use. GASTROINTESTINAL: Abdomen soft, non-tender, nondistended. MUSCULOSKELETAL: No cyanosis, or edema. SKIN: Warm and dry. NEURO: No focal neurological deficits. confused able to provide name correctly , thinks we a in [place] and it is 1977 A/P Problem List: (1) Atrial fibrillation with RVR ICD Code: I48.91 - Unspecified atrial fibrillation Status: Acute (2) Pneumonia ICD Code: J18.9 - Pneumonia, unspecified organism Status: Acute (3) Rhabdomyolysis ICD Code: M62.82 - Rhabdomyolysis (4) Falls frequently ICD Code: R29.6 - Repeated falls (5) HTN (hypertension) ICD Code: I10 - Essential (primary) hypertension Assessment and Plan 77-year-old male admitted secondary to A. fib with RVR and pneumonia hypoxia A. fib with RVR Now rate improved now low 100s after Cardizem 20 mg given IV push (10/05/17) continue PO cardizem to 240 mg PO daily Continue Eliquis Follow on telemetry Pneumonia, serology positive for Mycoplasma pneumonia IgG Hypoxia Also being followed by Dr. Gamez Community-acquired versus aspiration Continue azithromycin Serology Mycoplasma pneumonia IgG positive Continue pain treatment Temporary NSAIDs Rhabdomyolysis Resolved Discontinued IV fluids Frequent falls Generalized weakness Continue physical therapy - recommending SNF[facility] at [facility] Continue Cardizem, dose increased due to A Fib RVR Continue lisinopril, dose increased to 40 mg PO daily due to HTN Confusion CBC reviewed and reveals WBC 10.8 -> 11.2 no focal deficits continue to monitor discussed with Dr. Ross no stable to DC at this point continue to monitor mental status serial neuro checks Stat vital requested DVT prophylaxis Patient on Eliquis Discussed with patient, nurse and Dr. Ross Problem Qualifiers (1) Pneumonia: Qualified Codes: J18.9 - Pneumonia, unspecified organism Katelin Henriquez Oct 06, 2017 12:40
--- NOTE | 2017-10-06 12:58 | HHI.IDPN ---
Note Infectious Disease Note Patient is more confused. Thinks he is in [place]. Took off his child monitor and nasal canula. Dressed in his street clothes. Appears dyspneic. Afebrile. Positive IgM mycoplasma. PAST MEDICAL HISTORY 1. Atrial fibrillation 2. Congestive heart failure 3. COPD 4. Hypertension 5. Depression 6. History of TIA 7. History of GI bleed 8. Appendectomy 9. 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 ANTIBIOTICS: Azithromycin. SOCIAL HISTORY The patient denies tobacco or alcohol use. Denies illicit drugs. FAMILY HISTORY Noncontributory OBJECTIVE: Vital Signs Date Time Temp Pulse Resp B/P (MAP) Pulse Ox O2 Delivery O2 Flow Rate FiO2 10/06/17 10:28 Nasal Cannula 2.00 10/06/17 09:41 160/80 (106) 10/06/17 04:00 98.3 85 18 148/89 (108) 97 10/06/17 00:58 97.6 106 18 170/80 (110) 96 10/05/17 20:00 98.3 82 20 162/82 (108) 95 10/05/17 20:00 63 10/05/17 19:45 Nasal Cannula 2.00 10/05/17 19:27 95 10/05/17 16:53 Nasal Cannula 4.00 10/05/17 16:01 97.1 79 19 150/97 (114) 94 10/05/17 15:46 93 Laboratory Tests Test 10/05/17 10:20 10/06/17 07:30 White Blood Count 10.8 TH/MM3 11.4 TH/MM3 Red Blood Count 4.92 MIL/MM3 4.57 MIL/MM3 Hemoglobin 13.6 GM/DL 12.6 GM/DL Hematocrit 40.6 % 37.8 % Mean Corpuscular Volume 82.6 FL 82.7 FL Mean Corpuscular Hemoglobin 27.7 PG 27.5 PG Mean Corpuscular Hemoglobin Concent 33.6 % 33.3 % Red Cell Distribution Width 15.8 % 15.6 % Platelet Count 198 TH/MM3 202 TH/MM3 Mean Platelet Volume 10.3 FL 10.6 FL Neutrophils (%) (Auto) 80.5 % 78.6 % Lymphocytes (%) (Auto) 12.2 % 12.3 % Monocytes (%) (Auto) 6.2 % 7.6 % Eosinophils (%) (Auto) 0.9 % 1.3 % Basophils (%) (Auto) 0.2 % 0.2 % Neutrophils # (Auto) 8.7 TH/MM3 9.0 TH/MM3 Lymphocytes # (Auto) 1.3 TH/MM3 1.4 TH/MM3 Monocytes # (Auto) 0.7 TH/MM3 0.9 TH/MM3 Eosinophils # (Auto) 0.1 TH/MM3 0.1 TH/MM3 Basophils # (Auto) 0.0 TH/MM3 0.0 TH/MM3 CBC Comment DIFF FINAL DIFF FINAL Differential Comment Laboratory Tests Test 10/05/17 10:20 10/06/17 07:30 Blood Urea Nitrogen 21 MG/DL 17 MG/DL Creatinine 0.86 MG/DL 0.73 MG/DL Random Glucose 137 MG/DL 87 MG/DL Total Protein 7.8 GM/DL 8.1 GM/DL Albumin 3.1 GM/DL 3.1 GM/DL Calcium Level 9.3 MG/DL 9.1 MG/DL Alkaline Phosphatase 92 U/L 83 U/L Aspartate Amino Transf (AST/SGOT) 49 U/L 36 U/L Alanine Aminotransferase (ALT/SGPT) 95 U/L 78 U/L Total Bilirubin 0.9 MG/DL 0.9 MG/DL Sodium Level 138 MEQ/L 136 MEQ/L Potassium Level 3.9 MEQ/L 4.3 MEQ/L Chloride Level 102 MEQ/L 102 MEQ/L Carbon Dioxide Level 27.5 MEQ/L 26.7 MEQ/L Anion Gap 9 MEQ/L 7 MEQ/L Estimat Glomerular Filtration Rate 86 ML/MIN 104 ML/MIN Microbiology Date/Time Source Procedure Growth Status 10/02/17 18:00 Blood Peripheral Aerobic Blood Culture - Preliminary NO GROWTH IN 2 DAYS Resulted 10/02/17 18:00 Blood Peripheral Anaerobic Blood Culture - Preliminary NO GROWTH IN 2 DAYS Resulted 10/02/17 17:55 Blood Peripheral Aerobic Blood Culture - Preliminary NO GROWTH IN 2 DAYS Resulted 10/02/17 17:55 Blood Peripheral Anaerobic Blood Culture - Preliminary NO GROWTH IN 2 DAYS Resulted 10/03/17 12:10 Urine Clean Catch Legionella Antigen - Final PRESUMPTIVE NEGATIVE FOR LEGIONELLA P... Complete 10/03/17 12:10 Urine Clean Catch Urine Culture - Preliminary NO GROWTH IN 24 HOURS. Resulted IMAGING: Abdomen/Pelvis CT 10/02/17 1155 Signed Impressions: Service Date/Time: Monday, October 02, 2017 13:38 - CONCLUSION: 1. No acute on abnormality. 2. Colonic diverticulosis. 3. Degenerative lumbar spine. 4. Small bilateral inguinal hernias containing fat. Hunter Carreon Jr., MD Chest X-Ray 10/02/17 0000 Signed Impressions: Service Date/Time: Monday, October 02, 2017 12:14 - CONCLUSION: 1. Scattered subsegmental air space disease in the lungs especially at the bases. Differential diagnosis includes bronchopneumonia and aspiration. Hammad Beltran MD CT Angiography 10/02/17 0000 Signed Impressions: Service Date/Time: Monday, October 02, 2017 13:41 - CONCLUSION: 1. Study is breathing motion degraded. 2. No pulmonary emboli. 3. Coronary artery atherosclerotic calcifications. Hunter Carreon Jr., MD PHYSICAL EXAMINATION GENERAL: Confused. HEENT: Head is atraumatic. Extraocular movements grossly intact, pupils reactive to light. No icterus. Oropharynx moist mucosa. No visible lesions. NECK: Supple without adenopathy. LUNGS: Decreased breath sounds. HEART: Irregular S1-S2. No audible murmur. ABDOMEN: Obese, soft. Non tender. EXTREMITIES: The right qvbko-dmt-bdbg stump intact. No clubbing, cyanosis or edema. SKIN: No rash. NEUROLOGIC: No gross focal findings. PSYCH: Calm and cooperative. IMPRESSION 1. Pneumonia - Atypical pneumonia. Possible aspiration. 2. Leukocytosis secondary to pneumonia. WBC increased slightly. 3. Atrial fibrillation. 4. AMS. ? due to infection. PNA. RECOMMENDATIONS 1. Continue Azithromycin. 2. Repeat CXR. 3. Monitor the clinical response. Addendum. Chest Xray reviewed. Diffuse infiltrates. Plan - Stop Azithromycin. Start IV Levaquin. Follow WBC, clinical status. Seun Gamez MD Oct 06, 2017 12:58
--- NOTE | 2017-10-06 15:48 | RADRPT ---
EXAM DATE/TIME: 10/06/2017 15:08 [place] COMPARISON: CHEST SINGLE AP, October 02, 2017, 12:14. INDICATIONS : Pneumonia. MEDICAL HISTORY : Cerebrovascular disease. Hypertension atrial fibrillation SURGICAL HISTORY : None. ENCOUNTER: Initial ACUITY: 4 - 6 days PAIN SCORE: 0/10 LOCATION: Bilateral chest FINDINGS: A single view of the chest demonstrates scattered patchy densities. Heart normal size. Pleural effusi on is not seen. Osseous structures are intact. CONCLUSION: Scattered patchy infiltrates. Tomer Nova MD on October 06, 2017 at 15:45 Board Certified Radiologist. This report was verified electronically.
[2017-10-06] MEDS ORDERED: LEVOFLOXACIN 750 MG PREMIX INJ 150 ML IV SCH (16:00)
[2017-10-06] MEDS ORDERED: ALPRAZolam 0.5 MG TAB PO ONE (18:00)
[2017-10-06 18:15] LABS: BLOOD GAS CARBOXYHEMOGLOBIN 1.2 % (0-4); BLOOD GAS HCO3 27 mmol/L (22-26); BLOOD GAS METHEMOGLOBIN 0.9 % (0-2); BLOOD GAS O2 HGB SATURATION 95 % (90-100); BLOOD GAS OXYGEN CONTENT 16.5 Vol % (12.0-20.0); BLOOD GAS PCO2 40 mmHg (38-42); BLOOD GAS PO2 89 mmHg (61-120); BLOOD GAS TOTAL HGB 12.4 G/DL (12.0-16.0); CRITICAL VALUE NO; DRAW SITE RT RADIAL; LITER FLOW 2 L/M; NUMBER OF ARTERIAL PUNCTURES 1; OXYGEN DEVICE NASAL CANNULA; TEMP CORR TO 98.6
[2017-10-06 18:16] LABS: STAT NO; ULNAR PULSE PRESENT
[2017-10-07] VITALS: BP 106/62; PULSE 76; RESP 21; TEMP 98.5; O2SAT 97
[2017-10-07] MEDS: ALPRAZolam 0.25 MG TAB PO PRN ×2 (00:46→06:41)
[2017-10-07] MEDS: RESP: IPRATROPIUM 0.5 MG/2.5 ML NEB NEB SCH ×4 (00:58→11:24)
[2017-10-07 04:00] VITALS: BP 138/66; PULSE 84; RESP 24; TEMP 98.1; O2SAT 94
[2017-10-07] MEDS: ACETAMINOPHEN/HYDROcodone 325 MG/10 MG TAB PO PRN (04:23)
[2017-10-07 07:41] LABS: AUTOMATED NEUTROPHIL # 7.1 TH/MM3 (1.8-7.7); BASOPHIL % 0.3 % (0.0-2.0); EOSINOPHIL # 0.2 TH/MM3 (0-0.4); HEMATOCRIT 37.9 % (39.0-51.0); HEMO FLAGS DIFF FINAL; LYMPH % 15.3 % (9.0-44.0); LYMPHOCYTE # 1.4 TH/MM3 (1.0-4.8); MEAN CELL VOLUME 82.2 FL (80.0-100.0); MEAN CORPUSCULAR HEMOGLOBIN 28.1 PG (27.0-34.0); MEAN CORPUSCULAR HGB CONC 34.1 % (32.0-36.0); MONO % 7.1 % (0.0-8.0); NEUT % 75.3 % (16.0-70.0); PLATELET COUNT 212 TH/MM3 (150-450); RED BLOOD COUNT 4.61 MIL/MM3 (4.50-5.90); RED CELL DISTRIBUTION WIDTH 15.8 % (11.6-17.2); WHITE BLOOD COUNT 9.5 TH/MM3 (4.0-11.0)
[2017-10-07 08:00] VITALS: BP 126/80; PULSE 85; RESP 16; TEMP 98.4; O2SAT 96; O2SAT 98
[2017-10-07 08:02] LABS: BICARBONATE 29.8 MEQ/L (21.0-32.0); POTASSIUM 4.1 MEQ/L (3.5-5.1)
[2017-10-07] MEDS: SODIUM CHLORIDE 0.9% FLUSH 10 ML FLUSH IV FLUSH SCH (09:00)
[2017-10-07] MEDS: DILTIAZEM-CD 240 MG CAP ER PO SCH (09:07)
[2017-10-07] MEDS: LISINOPRIL 20 MG TAB PO SCH (09:09)
[2017-10-07] MEDS: NAPROXEN 250 MG TAB PO SCH (09:10)
[2017-10-07] MEDS: APIXABAN 5 MG TABLET PO SCH (09:10)
--- NOTE | 2017-10-07 09:27 | HHI.IDPN ---
Note Infectious Disease Note ID COVERAGE Chart reviewed. Has been found to have PNA Has had problems with cardiac arrhythmias Notes reviewed Was more confused yesterday. Has been receiving Xanax when necessary. Got Xanax last night at 6 PM, 12 midnight, as well as 6 this morning Lethargic this morning Patient also received [place] at 8:00 Discussed with ROGELIO snell Repeat chest x-ray showed stable scattered infiltrates WBC down to normal States he is short of breath, on nasal O2 Minimal cough Legionella antigen negative Positive IgM mycoplasma. PAST HISTORY 1. Atrial fibrillation 2. Congestive heart failure 3. COPD 4. Hypertension 5. Depression 6. History of TIA 7. History of GI bleed 8. Appendectomy 9. Right fzsoa-zrr-azxn amputation secondary to trauma approximately 30 years ago ALLERGIES NO KNOWN DRUG ALLERGIES. ANTIBIOTICS: Levaquin Current Medications Medications (Trade) Dose Ordered Sig/[place]ina Route Start Time Stop Time Status Last Admin (NS Flush) 2 ml UNSCH PRN IV FLUSH 10/02/17 16:00 (NS Flush) 2 ml BID IV FLUSH 10/02/17 21:00 10/07/17 09:00 (Narcan Inj) 0.4 mg UNSCH PRN IV PUSH 10/02/17 16:00 (Eliquis) 5 mg BID PO 10/02/17 21:00 10/07/17 09:10 (Catapres) 0.1 mg Q6H PRN PO 10/02/17 17:30 10/03/17 22:33 (Atrovent Neb) 0.5 mg Q4HR NEB NEB 10/02/17 20:00 10/07/17 07:59 (Cardizem Inj) 20 mg Q2HR PRN IV 10/02/17 18:15 10/05/17 10:33 (Naprosyn) 250 mg Q12H PO 10/05/17 09:00 10/07/17 09:10 ([place] 5-325 Mg) 1 tab Q4H PRN PO 10/04/17 17:15 ([place] 10-325 Mg) 1 tab Q4H PRN PO 10/04/17 17:15 10/07/17 04:23 (Prinivil) 40 mg DAILY PO 10/06/17 09:00 10/07/17 09:09 (Cardizem Cd) 240 mg DAILY PO 10/06/17 09:00 10/07/17 09:07 Levofloxacin/ Dextrose 150 ml @ 100 mls/hr Q24H IV 10/06/17 16:00 10/06/17 18:46 (Xanax) 0.25 mg Q6HR PRN PO 10/06/17 18:00 10/07/17 06:41 OBJECTIVE: Vital Signs Date Time Temp Pulse Resp B/P (MAP) Pulse Ox O2 Delivery O2 Flow Rate FiO2 10/07/17 08:00 96 Nasal Cannula 2.00 10/07/17 08:00 98.4 85 16 126/80 (95) 98 Automatic Cuff 10/07/17 04:00 98.1 84 24 138/66 (90) 94 10/07/17 00:00 98.5 76 21 106/62 (77) 97 10/06/17 20:02 70 10/06/17 20:00 98.2 70 19 137/84 (101) 96 10/06/17 19:45 Nasal Cannula 2.00 10/06/17 16:02 95 Nasal Cannula 2.00 10/06/17 16:00 97.0 54 20 140/75 (96) 95 10/06/17 12:00 97.0 70 20 145/85 (105) 92 10/06/17 10:28 Nasal Cannula 2.00 10/06/17 09:41 160/80 (106) Vital Signs Date Time Temp Pulse Resp B/P (MAP) Pulse Ox O2 Delivery O2 Flow Rate FiO2 10/06/17 10:28 Nasal Cannula 2.00 10/06/17 09:41 160/80 (106) 10/06/17 04:00 98.3 85 18 148/89 (108) 97 10/06/17 00:58 97.6 106 18 170/80 (110) 96 10/05/17 20:00 98.3 82 20 162/82 (108) 95 10/05/17 20:00 63 10/05/17 19:45 Nasal Cannula 2.00 10/05/17 19:27 95 10/05/17 16:53 Nasal Cannula 4.00 10/05/17 16:01 97.1 79 19 150/97 (114) 94 10/05/17 15:46 93 Laboratory Tests Test 10/05/17 10:20 10/06/17 07:30 10/07/17 06:39 White Blood Count 10.8 TH/MM3 11.4 TH/MM3 9.5 TH/MM3 Red Blood Count 4.92 MIL/MM3 4.57 MIL/MM3 4.61 MIL/MM3 Hemoglobin 13.6 GM/DL 12.6 GM/DL 12.9 GM/DL Hematocrit 40.6 % 37.8 % 37.9 % Mean Corpuscular Volume 82.6 FL 82.7 FL 82.2 FL Mean Corpuscular Hemoglobin 27.7 PG 27.5 PG 28.1 PG Mean Corpuscular Hemoglobin Concent 33.6 % 33.3 % 34.1 % Red Cell Distribution Width 15.8 % 15.6 % 15.8 % Platelet Count 198 TH/MM3 202 TH/MM3 212 TH/MM3 Mean Platelet Volume 10.3 FL 10.6 FL 10.2 FL Neutrophils (%) (Auto) 80.5 % 78.6 % 75.3 % Lymphocytes (%) (Auto) 12.2 % 12.3 % 15.3 % Monocytes (%) (Auto) 6.2 % 7.6 % 7.1 % Eosinophils (%) (Auto) 0.9 % 1.3 % 2.0 % Basophils (%) (Auto) 0.2 % 0.2 % 0.3 % Neutrophils # (Auto) 8.7 TH/MM3 9.0 TH/MM3 7.1 TH/MM3 Lymphocytes # (Auto) 1.3 TH/MM3 1.4 TH/MM3 1.4 TH/MM3 Monocytes # (Auto) 0.7 TH/MM3 0.9 TH/MM3 0.7 TH/MM3 Eosinophils # (Auto) 0.1 TH/MM3 0.1 TH/MM3 0.2 TH/MM3 Basophils # (Auto) 0.0 TH/MM3 0.0 TH/MM3 0.0 TH/MM3 CBC Comment DIFF FINAL DIFF FINAL DIFF FINAL Differential Comment Laboratory Tests Test 10/05/17 10:20 10/06/17 07:30 10/06/17 18:42 10/07/17 06:39 Blood Urea Nitrogen 21 MG/DL 17 MG/DL 16 MG/DL Creatinine 0.86 MG/DL 0.73 MG/DL 0.78 MG/DL Random Glucose 137 MG/DL 87 MG/DL 84 MG/DL Total Protein 7.8 GM/DL 8.1 GM/DL Albumin 3.1 GM/DL 3.1 GM/DL Calcium Level 9.3 MG/DL 9.1 MG/DL 9.1 MG/DL Alkaline Phosphatase 92 U/L 83 U/L Aspartate Amino Transf (AST/SGOT) 49 U/L 36 U/L Alanine Aminotransferase (ALT/SGPT) 95 U/L 78 U/L Total Bilirubin 0.9 MG/DL 0.9 MG/DL Sodium Level 138 MEQ/L 136 MEQ/L 134 MEQ/L Potassium Level 3.9 MEQ/L 4.3 MEQ/L 4.1 MEQ/L Chloride Level 102 MEQ/L 102 MEQ/L 100 MEQ/L Carbon Dioxide Level 27.5 MEQ/L 26.7 MEQ/L 29.8 MEQ/L Anion Gap 9 MEQ/L 7 MEQ/L 4 MEQ/L Estimat Glomerular Filtration Rate 86 ML/MIN 104 ML/MIN 96 ML/MIN Ammonia 32 MCMOL/L Microbiology Date/Time Source Procedure Growth Status 10/02/17 18:00 Blood Peripheral Aerobic Blood Culture - Preliminary NO GROWTH IN 2 DAYS Resulted 10/02/17 18:00 Blood Peripheral Anaerobic Blood Culture - Preliminary NO GROWTH IN 2 DAYS Resulted 10/02/17 17:55 Blood Peripheral Aerobic Blood Culture - Preliminary NO GROWTH IN 2 DAYS Resulted 10/02/17 17:55 Blood Peripheral Anaerobic Blood Culture - Preliminary NO GROWTH IN 2 DAYS Resulted 10/03/17 12:10 Urine Clean Catch Legionella Antigen - Final PRESUMPTIVE NEGATIVE FOR LEGIONELLA P... Complete 10/03/17 12:10 Urine Clean Catch Urine Culture - Preliminary NO GROWTH IN 24 HOURS. Resulted IMAGING: Chest X-Ray 10/06/17 0000 Signed Impressions: Service Date/Time: Friday, October 06, 2017 15:08 - CONCLUSION: Scattered patchy infiltrates. Tomer Nova MD Abdomen/Pelvis CT 10/02/17 1155 Signed Impressions: Service Date/Time: Monday, October 02, 2017 13:38 - CONCLUSION: 1. No acute on abnormality. 2. Colonic diverticulosis. 3. Degenerative lumbar spine. 4. Small bilateral inguinal hernias containing fat. Hunter Carreon Jr., MD Chest X-Ray 10/02/17 0000 Signed Impressions: Service Date/Time: Monday, October 02, 2017 12:14 - CONCLUSION: 1. Scattered subsegmental air space disease in the lungs especially at the bases. Differential diagnosis includes bronchopneumonia and aspiration. Hammad Beltran MD CT Angiography 10/02/17 0000 Signed Impressions: Service Date/Time: Monday, October 02, 2017 13:41 - CONCLUSION: 1. Study is breathing motion degraded. 2. No pulmonary emboli. 3. Coronary artery atherosclerotic calcifications. Hunter Carreon Jr., MD PHYSICAL EXAMINATION GENERAL: Awake, but sluggish to respond, not in distress HEENT: Head is atraumatic. Extraocular movements grossly intact, pupils reactive to light. No icterus. Oropharynx moist mucosa. No visible lesions. NECK: Supple without adenopathy. LUNGS: Decreased breath sounds. Few wheezing on L side HEART: Irregular S1-S2. No audible murmur. ABDOMEN: Obese, slightly distended. Non tender. Bowel sounds are present EXTREMITIES: The right wbbki-dbk-dgio stump intact. No clubbing, cyanosis or edema. SKIN: No rash. NEUROLOGIC: No gross focal findings. PSYCH: Calm and cooperative. IMPRESSION Pneumonia - Atypical pneumonia. Possible aspiration. Leukocytosis secondary to pneumonia. - better today trial fibrillation. AMS. ? due to infection. PNA. - ?due to meds - Sluggish today RECOMMENDATIONS Continue Levaquin Follow mental status Monitor clinical response If no deterioration in mental status, we will change Levaquin to oral Spoke with family Discussed with eGrtrude Szymanski MD Oct 07, 2017 09:27
[2017-10-07 12:00] VITALS: BP 165/82; PULSE 87; RESP 16; TEMP 98.6; O2SAT 97
[2017-10-07] MEDS ORDERED: LEVA750T9 PO (12:53)
--- NOTE | 2017-10-07 16:16 | HHI.DS ---
Discharge Summary Admission Date Oct 02, 2017 at 15:58 Discharge Date: Oct 07, 2017 Admitting Diagnosis AFIB W/ RVR, PNA (1) Atrial fibrillation with RVR ICD Code: I48.91 - Unspecified atrial fibrillation Diagnosis: Principal Status: Acute (2) Pneumonia ICD Code: J18.9 - Pneumonia, unspecified organism Diagnosis: Principal Status: Acute (3) Rhabdomyolysis ICD Code: M62.82 - Rhabdomyolysis Diagnosis: Principal (4) Falls frequently ICD Code: R29.6 - Repeated falls Diagnosis: Principal (5) HTN (hypertension) ICD Code: I10 - Essential (primary) hypertension Diagnosis: Principal Procedures None Brief History - From Admission Written by Fani Juarez, acting as scribe for Dr. Emmanuel on 10/02/17 at 1630. Mr. Kuo is a relatively poor historian to events leading up to presentation to the ED. Patient states he's been feeling "sick" with complaint of subjective fevers. Positive chest pains and feelings of palpitations and shortness of breath. States he fell down today and yesterday due to "rough terrain". Called the ambulance after falls. TMAX fever of 100. Subjective fevers for a few days. Admits to productive cough, green-colored sputum. Denies any nausea or vomiting. Denies any hematozemia. Denies hematuria. Admits to dysuria. States he lives alone. Continues to independently drive. Denies cocaine or marijuana use, denies any alcohol use, denies any illicit drug use. Denies any thyroid issues. 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 Admits to COPD, denies use of BIPAP at home. Admits to some abdominal pain. Denies any recent nausea or vomiting. After review of medical records patient was recently admitted on 09/24/17 with a fib RVR. Does have a history of TIA earlier this year, on home eliquis. CBC/BMP: 10/07/17 0639 10/07/17 0639 Significant Findings Laboratory Tests Test 10/05/17 10:20 10/06/17 07:30 10/06/17 17:58 10/06/17 18:42 Neutrophils (%) (Auto) 80.5 % (16.0-70.0) 78.6 % (16.0-70.0) Neutrophils # (Auto) 8.7 TH/MM3 (1.8-7.7) 9.0 TH/MM3 (1.8-7.7) Blood Urea Nitrogen 21 MG/DL (7-18) Random Glucose 137 MG/DL (74-106) Albumin 3.1 GM/DL (3.4-5.0) 3.1 GM/DL (3.4-5.0) Aspartate Amino Transf (AST/SGOT) 49 U/L (15-37) Alanine Aminotransferase (ALT/SGPT) 95 U/L (12-78) Estimat Glomerular Filtration Rate 86 ML/MIN (>89) White Blood Count 11.4 TH/MM3 (4.0-11.0) Hemoglobin 12.6 GM/DL (13.0-17.0) Hematocrit 37.8 % (39.0-51.0) Blood Gas HCO3 27 mmol/L (22-26) Blood Gas Base Excess 3.0 mmol/L (-2-2) Arterial Blood pH 7.44 (7.380-7.420) Test 10/07/17 06:39 Hemoglobin 12.9 GM/DL (13.0-17.0) Hematocrit 37.9 % (39.0-51.0) Neutrophils (%) (Auto) 75.3 % (16.0-70.0) Sodium Level 134 MEQ/L (136-145) Anion Gap 4 MEQ/L (5-15) PE at Discharge GENERAL: awake and alert- confused HEAD: Normocephalic. NECK: Supple, trachea midline. No lymphadenopathy. EYES: No scleral icterus. No injection or drainage. CARDIOVASCULAR: irregularly irregular RESPIRATORY: Breath sounds equal bilaterally. No accessory muscle use. GASTROINTESTINAL: Abdomen soft, non-tender, nondistended. MUSCULOSKELETAL: No cyanosis, or edema. SKIN: Warm and dry. NEURO: No focal neurological deficits. confused able to provide name correctly , thinks we a in [place] and it is 1978 Hospital Course Mr. Kuo is a 7-year-old male. He came in with A. fib RVR pneumonia. Treatments are provided and the patient has improved. His respiratory status and heart rates have been stable for discharge but he developed an encephalopathy. This may be in part due to medications for pain but sundowning can also be present. This has not yet shown improvement in the past 2 days. Workup is negative for any metabolic disturbances. Family has requested the patient discharged to his regular home environment and they report that they're willing to take care of him in that setting. That may actually be of benefit to him. The family has also voiced that they would return should his condition get worse or not improve. Stable for discharge to home today. Pt Condition on Discharge: Fair Discharge Disposition: Discharge Home Discharge Time: <= 30 minutes Discharge Instructions DIET: Follow Instructions for: As Tolerated, No Restrictions Activities you can perform: Regular-No Restrictions Follow up Referrals: PCP Follow-up - 2 Weeks New Medications: Lactobacillus Acidophilus (Lactobacillus Acidophilus) 1 Billion Cell Tab 1 TAB PO TIDAC for Nutritional Supplement, #30 TAB 0 Refills Levofloxacin (Levaquin) 750 Mg Tablet 750 MG PO DAILY for Infection, #7 TAB 0 Refills Diltiazem CD 24 HR (Diltiazem CD 24 HR) 240 Mg Caper 240 MG PO DAILY for Heart Rhythm, #30 CAP Hydrocodone/Acetaminophen (Hydrocodone-Acetamin 5-325 mg) 5 Mg-325 Mg Tablet 1 TAB PO Q6H PRN for Pain, #90 TAB Lisinopril (Lisinopril) 20 Mg Tab 40 MG PO DAILY for blood pressure, #30 TAB 0 Refills Continued Medications: Apixaban (Eliquis) 5 Mg Tab 5 MG PO BID for Blood Clot Prevention, #60 TAB Discontinued Medications: Diltiazem CD 24 HR (Cardizem CD 24 HR) 120 Mg Caper 120 MG PO DAILY for a-fib, #30 CAP 0 Refills Lisinopril (Lisinopril) 20 Mg Tab 20 MG PO DAILY for Blood Pressure Management, #30 TAB Sotero Ross MD Oct 07, 2017 16:16
== END 2017-10-07 14:49 | disposition home or self-care (01) | DRG 871 ==
LOC: NEPE 11:43 → NEDA 15:58 → HCIS 18:34 → N04A 10-03 20:11
PROVIDERS: ADMIT Hospitalist; ATTEND Hospitalist
DX: A41.9 Sepsis, unspecified organism (principal); G93.40 Encephalopathy, unspecified; J18.9 Pneumonia, unspecified organism; I48.91 Unspecified atrial fibrillation; J44.0 Chronic obstructive pulmonary disease with (acute) lower respiratory infection; M62.82 Rhabdomyolysis; Z99.81 Dependence on supplemental oxygen; R30.0 Dysuria; Z86.73 Personal history of transient ischemic attack (TIA), and cerebral infarction without residual deficits; Z79.02 Long term (current) use of antithrombotics/antiplatelets; I10 Essential (primary) hypertension; K40.20 Bilateral inguinal hernia, without obstruction or gangrene, not specified as recurrent; H91.90 Unspecified hearing loss, unspecified ear; R29.6 Repeated falls; I25.2 Old myocardial infarction; Z89.511 Acquired absence of right leg below knee
CPT/HCPCS: 36600; 71010; 71275; 74177; 80048; 80053; 80307; 81001; 82140; 82550; 82552; 82805; 83605; 83690; 83880; 84484; 85025; 85027; 86038; 86430; 86738; 87040; 87086; 87449; 93005; 94640; 94664; 96374; 96375; J0456; J0692; J1956; J2270; J2405; J7050; J7644; Q9967